=== PATIENT | female | born 1930 | race Caucasian/White ===

== ENCOUNTER 2016-11-13 18:07 | Emergency (ER) | payer MEDICARE ==
[~2016-11-13] VITALS: Ht 172.7 cm; Wt 60.0 kg
[2016-11-13 18:16] VITALS: BP 163/87; PULSE 70; RESP 20; TEMP 98.5; O2SAT 97
[2016-11-13 18:22] VITALS: BP 163/87; PULSE 70; RESP 17; O2SAT 97
[2016-11-13] MEDS: SODIUM CHLORIDE 0.9% FLUSH 10 ML FLUSH IVF PRN ×2 (18:44→18:52)
--- NOTE | 2016-11-13 18:50 | PD ---
HPI Chief Complaint: Altered Mental Status Time Seen by Provider: 18:19 Travel History International Travel<30 days: No Contact w/Intl Traveler<30days: No Traveled to known affect area: No History of Present Illness HPI Send 86 year-old woman who presents to the emergency department from [facility] for altered mental status. He reports she's been or sleepy and lethargic today. She has multiple medical problems including A. fib, warfarin, anxiety, CHF, diabetes, COPD. She is on chronic morphine, as well as trazodone at night that was recently increased. History Past Medical History Narrative Medical COPD A. fib, on warfarin Hypertension anxiety Pacer GERD CHF Diabetes Restless leg syndrome Social History Alcohol Use: No Tobacco Use: No Allergies-Medications (Allergen,Severity, Reaction): Coded Allergies: Codeine (Verified Allergy, Unknown, 11/13/16) Review of Systems Except as stated in HPI: all other systems reviewed are Neg Physical Exam Narrative GENERAL: 86 year-old woman, well-appearing, lethargic. SKIN: Focused skin assessment warm/dry. HEAD: Atraumatic. Normocephalic. CARDIOVASCULAR: Regular rate and rhythm. No murmur appreciated. RESPIRATORY: No accessory muscle use. Clear to auscultation. Breath sounds equal bilaterally. GASTROINTESTINAL: Abdomen soft, non-tender, nondistended. Hepatic and splenic margins not palpable. MUSCULOSKELETAL: No obvious deformities. She has some pain in the left foot from chronic arthritis. Otherwise unremarkable. NEUROLOGICAL: Awake, decreased alertness. No obvious cranial nerve deficits. Motor grossly within normal limits. Normal speech. PSYCHIATRIC: Appropriate mood and affect; insight and judgment normal. Data Data Last Documented VS Vital Signs Date Time Temp Pulse Resp B/P Pulse Ox O2 Delivery O2 Flow Rate FiO2 11/13/16 18:59 98.1 70 18 136/71 97 Room Air Orders Complete Blood Count With Diff (11/13/16 18:19) Comprehensive Metabolic Panel (11/13/16 18:19) Troponin I (11/13/16 18:19) Thyroid Stimulating Hormone (11/13/16 18:19) Urinalysis - C+S If Indicated (11/13/16 18:19) Blood Glucose (11/13/16 18:19) Ecg Monitoring (11/13/16 18:19) Iv Access Insert/Monitor (11/13/16 18:19) Cath For Specimen (11/13/16 18:19) Oximetry (11/13/16 18:19) Sodium Chloride 0.9% Flush (Ns Flush) (11/13/16 18:30) Labs Laboratory Tests Test 11/13/16 18:30 White Blood Count 9.3 TH/MM3 Red Blood Count 4.34 MIL/MM3 Hemoglobin 12.3 GM/DL Hematocrit 36.6 % Mean Corpuscular Volume 84.3 FL Mean Corpuscular Hemoglobin 28.4 PG Mean Corpuscular Hemoglobin 33.6 % Concent Red Cell Distribution Width 15.2 % Platelet Count 124 TH/MM3 Mean Platelet Volume 7.8 FL Neutrophils (%) (Auto) 60.6 % Lymphocytes (%) (Auto) 27.4 % Monocytes (%) (Auto) 10.3 % Eosinophils (%) (Auto) 0.9 % Basophils (%) (Auto) 0.8 % Neutrophils # (Auto) 5.6 TH/MM3 Lymphocytes # (Auto) 2.5 TH/MM3 Monocytes # (Auto) 1.0 TH/MM3 Eosinophils # (Auto) 0.1 TH/MM3 Basophils # (Auto) 0.1 TH/MM3 CBC Comment DIFF FINAL Differential Comment MDM Medical Decision Making Medical Screen Exam Complete: Yes Emergency Medical Condition: Yes Differential Diagnosis Infection, electronic necrotic, adverse medication effect, other Narrative Course Medical decision making 86-year-old presents emergent department altered mental status. Wide differential diagnosis including infection, adverse medication effect, electrolyte abnormality. Most notably, it appears that her trazodone dose was doubled starting last night. I think this is most likely explanation for her symptoms. No evidence of trauma. No history of falls. We'll check labs, UA, otherwise recommend holding trazodone and outpatient follow-up. Patient will be signed out to the oncoming provider at 7pm. Axel Godinez MD November 13, 2016 18:50
[2016-11-13 18:58] LABS: AUTOMATED NEUTROPHIL # 5.6 TH/MM3 (1.8-7.7); BASOPHIL # 0.1 TH/MM3 (0-0.2); BASOPHIL % 0.8 % (0.0-2.0); EOSINOPHIL # 0.1 TH/MM3 (0-0.4); EOSINOPHIL % 0.9 % (0.0-4.0); HEMATOCRIT 36.6 % (35.0-46.0); LYMPH % 27.4 % (9.0-44.0); LYMPHOCYTE # 2.5 TH/MM3 (1.0-4.8); MEAN CELL VOLUME 84.3 FL (80.0-100.0); MEAN CORPUSCULAR HEMOGLOBIN 28.4 PG (27.0-34.0); MEAN CORPUSCULAR HGB CONC 33.6 % (32.0-36.0); MONO % 10.3 % (0.0-8.0); NEUT % 60.6 % (16.0-70.0); PLATELET COUNT 124 TH/MM3 (150-450); RED BLOOD COUNT 4.34 MIL/MM3 (4.00-5.30); RED CELL DISTRIBUTION WIDTH 15.2 % (11.6-17.2); WHITE BLOOD COUNT 9.3 TH/MM3 (4.0-11.0)
[2016-11-13 18:59] VITALS: BP 136/71; PULSE 70; RESP 18; TEMP 98.1; O2SAT 97
[2016-11-13 18:59] LABS: HEMO FLAGS DIFF FINAL
[2016-11-13 19:06] LABS: ALT (GPT) 14 U/L (10-53); ANION GAP 9 MEQ/L (5-15); AST (GOT) 17 U/L (15-37); BICARBONATE 28.8 MEQ/L (21.0-32.0); BLOOD UREA NITROGEN 18 MG/DL (7-18); CHLORIDE 104 MEQ/L (98-107); GLOMERULAR FILTRATION RATE 47 ML/MIN (>89); SODIUM (NA) 142 MEQ/L (136-145)
[2016-11-13 19:16] LABS: ALKALINE PHOSPHATASE 61 U/L (45-117); TOTAL BILIRUBIN ADULT 0.5 MG/DL (0.2-1.0)
[2016-11-13 19:34] LABS: BLOOD, URINE TRACE (NEG); GLUCOSE,URINE NEG (NEG); KETONE, URINE NEG (NEG); MUCUS URINE FEW /lpf (OCC); NITRITE,URINE NEG (NEG); PH, URINE 5.5 (5.0-8.5); URINE COLOR YELLOW (YELLW/STRAW)
[2016-11-13 19:36] LABS: COMMENT (UR) CATH-CULT NOT IND; CULTURE IF INDICATED CATH CULTURE NOT IND
--- NOTE | 2016-11-13 19:47 | PD ---
Physical Exam Narrative The patient was initially evaluated by the previous provider and signed out to me at the beginning of my shift pending labs and disposition. See his note for further details. Briefly this is an 86-year-old female who [facility] of altered mental status. According to the reports the patient has been more sleepy and lethargic today. She is on morphine for chronic pain as well as trazodone which was recently increased yesterday. Here the patient has no physical complaints. On my exam she is awake and alert and tells me that she feels like she needs to urinate. No abdominal pain. No chest pain. Exam is essentially unremarkable. Vital signs show heart rate 70, blood pressure 163/87, pulse ox 97% on room air , oral temp of 98.5F. CBC shows to be BC 9.3, hemoglobin 12.3, hematocrit 36.6, platelets 124. CMP is essentially unremarkable. TSH is 0.089. UA is not suggestive of UTI. Previous provider discussed case with the patient's son via telephone with plan to discharge patient back to [facility]iary if labs are unremarkable. He is amenable to this plan. Patient is stable for discharge home back to [facility]. We have advised that trazodone be discontinued until she follows with her primary care physician. Data Data Last Documented VS Vital Signs Date Time Temp Pulse Resp B/P Pulse Ox O2 Delivery O2 Flow Rate FiO2 11/13/16 18:59 98.1 70 18 136/71 97 Room Air Orders Complete Blood Count With Diff (11/13/16 18:19) Comprehensive Metabolic Panel (11/13/16 18:19) Troponin I (11/13/16 18:19) Thyroid Stimulating Hormone (11/13/16 18:19) Urinalysis - C+S If Indicated (11/13/16 18:19) Blood Glucose (11/13/16 18:19) Ecg Monitoring (11/13/16 18:19) Iv Access Insert/Monitor (11/13/16 18:19) Cath For Specimen (11/13/16 18:19) Oximetry (11/13/16 18:19) Sodium Chloride 0.9% Flush (Ns Flush) (11/13/16 18:30) Labs Laboratory Tests Test 11/13/16 11/13/16 18:30 18:45 White Blood Count 9.3 TH/MM3 Red Blood Count 4.34 MIL/MM3 Hemoglobin 12.3 GM/DL Hematocrit 36.6 % Mean Corpuscular Volume 84.3 FL Mean Corpuscular Hemoglobin 28.4 PG Mean Corpuscular Hemoglobin 33.6 % Concent Red Cell Distribution Width 15.2 % Platelet Count 124 TH/MM3 Mean Platelet Volume 7.8 FL Neutrophils (%) (Auto) 60.6 % Lymphocytes (%) (Auto) 27.4 % Monocytes (%) (Auto) 10.3 % Eosinophils (%) (Auto) 0.9 % Basophils (%) (Auto) 0.8 % Neutrophils # (Auto) 5.6 TH/MM3 Lymphocytes # (Auto) 2.5 TH/MM3 Monocytes # (Auto) 1.0 TH/MM3 Eosinophils # (Auto) 0.1 TH/MM3 Basophils # (Auto) 0.1 TH/MM3 CBC Comment DIFF FINAL Differential Comment Sodium Level 142 MEQ/L Potassium Level 4.0 MEQ/L Chloride Level 104 MEQ/L Carbon Dioxide Level 28.8 MEQ/L Anion Gap 9 MEQ/L Blood Urea Nitrogen 18 MG/DL Creatinine 1.09 MG/DL Estimat Glomerular Filtration 47 ML/MIN Rate Random Glucose 101 MG/DL Calcium Level 8.5 MG/DL Total Bilirubin 0.5 MG/DL Aspartate Amino Transf 17 U/L (AST/SGOT) Alanine Aminotransferase 14 U/L (ALT/SGPT) Alkaline Phosphatase 61 U/L Troponin I 0.02 NG/ML Total Protein 6.7 GM/DL Albumin 3.4 GM/DL Thyroid Stimulating Hormone 0.089 uIU/ML 3rd Gen Urine Color YELLOW Urine Turbidity CLEAR Urine pH 5.5 Urine Specific [place] 1.031 Urine Protein TRACE mg/dL Urine Glucose (UA) NEG mg/dL Urine Ketones NEG mg/dL Urine Occult Blood TRACE Urine Nitrite NEG Urine Bilirubin NEG Urine Urobilinogen 2.0 MG/DL Urine Leukocyte Esterase NEG Urine RBC 2 /hpf Urine WBC 1 /hpf Urine Mucus FEW /lpf Microscopic Urinalysis Comment CATH-CULT NOT IND MDM Supervised Visit with URIEL: No Diagnosis Primary Impression: Mental status alteration Qualified Code: R41.82 - Altered mental status, unspecified altered mental status type Referrals: Primary Care Physician 2 days Additional Instruction: Follow-up with your primary care physician in the next 1-2 days. Discontinue trazodone. Return to the emergency department for worsening symptoms or any other concerns. Disposition: 03 DISCHARGE TO SNF Condition: Stable David Zacarias MD November 13, 2016 19:47
[2016-11-13] MEDS ORDERED: COUM4TAB PO (20:03)
[2016-11-13] MEDS ORDERED: FLUT1INH INH (20:03)
[2016-11-13] MEDS ORDERED: CETI10 PO (20:03)
[2016-11-13] MEDS ORDERED: METO25TA3 PO (20:06)
[2016-11-13] MEDS ORDERED: CETI5TAB2 PO (20:06)
[2016-11-13] MEDS ORDERED: SUCR1TAB PO (20:06)
[2016-11-13] MEDS ORDERED: LEVO125T4 PO (20:06)
[2016-11-13] MEDS ORDERED: MORP1TAB25 PO (20:10)
[2016-11-13] MEDS ORDERED: GABA300C5 PO (20:10)
[2016-11-13] MEDS ORDERED: ROPI0.5T PO (20:10)
[2016-11-13] MEDS ORDERED: MEGE40SU PO (20:10)
[2016-11-13] MEDS ORDERED: DIGO0.12 PO (20:17)
[2016-11-13] MEDS ORDERED: MORP1TAB24 PO (20:17)
[2016-11-13] MEDS ORDERED: FAMO40TA PO (20:17)
[2016-11-13] MEDS ORDERED: MEMA1CAP2 PO (20:17)
[2016-11-13] MEDS ORDERED: OSCA200T PO (20:17)
[2016-11-13] MEDS ORDERED: ALPR.5 PO (20:17)
[2016-11-13] MEDS ORDERED: GUAI1TAB PO (20:17)
[2016-11-13] MEDS ORDERED: QUES4POW PO (20:20)
[2016-11-13] MEDS ORDERED: TRAZ50TA12 PO (20:20)
[2016-11-13] MEDS ORDERED: ALPR0.5T3 PO (20:20)
== END 2016-11-13 22:10 ==
LOC: NEPE 18:07
DX: R41.82 Altered mental status, unspecified (principal); R53.83 Other fatigue; E11.9 Type 2 diabetes mellitus without complications; I48.91 Unspecified atrial fibrillation; I10 Essential (primary) hypertension; G25.81 Restless legs syndrome; Z79.01 Long term (current) use of anticoagulants; Z95.0 Presence of cardiac pacemaker; Z87.09 Personal history of other diseases of the respiratory system; Z86.59 Personal history of other mental and behavioral disorders; Z87.19 Personal history of other diseases of the digestive system; Z86.79 Personal history of other diseases of the circulatory system
CPT/HCPCS: 51703; 80053; 81001; 84443; 84484; 85025

== ENCOUNTER 2017-01-18 17:47 | Emergency (ER) | payer MEDICARE ==
[~2017-01-18] VITALS: Ht 172.7 cm; Wt 55.0 kg
[~2017-01-18 17:47] MED LIST: ALPR.5 PO; ALPR0.5T3 PO; CETI5TAB2 PO; COUM4TAB PO; DIGO0.12 PO; FAMO40TA PO; FLUT1INH INH; GABA300C5 PO; GUAI1TAB PO; LEVO125T4 PO; MEGE40SU PO; MEMA1CAP2 PO; METO25TA3 PO; MORP1TAB24 PO; OSCA200T PO; QUES4POW PO; ROPI0.5T PO; SUCR1TAB PO; TRAZ50TA12 PO
[2017-01-18 17:50] VITALS: BP 172/83; PULSE 74; RESP 20; TEMP 98.2; O2SAT 94
--- NOTE | 2017-01-18 18:00 | PD ---
Physical Exam Time Seen by Provider: 17:58 Narrative 86yo F generalized body itching x5 days and left eye itchiness, swelling. Per son, symptoms have been going on for about a month. Denies fever, vomiting. Patient seen in triage. VS reviewed. Awaiting bed placement. Data Data Last Documented VS Vital Signs Date Time Temp Pulse Resp B/P Pulse Ox O2 Delivery O2 Flow Rate FiO2 01/18/17 17:50 98.2 74 20 172/83 94 Room Air MDM Supervised Visit with URIEL: Jocelin Arroyo Jan 18, 2017 18:00
[2017-01-18] MEDS ORDERED: OS-CTAB3 PO (19:54)
[2017-01-18] MEDS ORDERED: HYDR-3133 PO (19:54)
[2017-01-18] MEDS ORDERED: CETI5CHW CHEW (19:54)
[2017-01-18] MEDS ORDERED: CETACRE5 TOPICAL (19:54)
[2017-01-18] MEDS ORDERED: HYDRO.5%T TOPICAL (19:54)
--- NOTE | 2017-01-18 19:55 | PD ---
HPI Chief Complaint: Skin Problem Time Seen by Provider: 19:48 Travel History International Travel<30 days: No Contact w/Intl Traveler<30days: No Traveled to known affect area: No History of Present Illness HPI 86-year-old female came to the emergency room brought by her son with history of intense itching all over her body. As per the son this has been going on for past 3 weeks. Patient says she is very frustrated with her condition since she is unable to sleep at night due to the intense itching. Patient has been given Zyrtec, hydroxyzine and hydrocortisone cream at the assisted living but none of these are working. Patient says that "you won't be able to see anything on my skin"but it itches everywhere. Vital signs were stable. She is awake and answering questions appropriately. [facility] Past Medical History Narrative Medical List of her past medical, surgical, social and family history is reviewed from the nursing note. Hx Anticoagulant Therapy: Yes Atrial Fibrillation: Yes Cardiovascular Problems: Yes COPD: Yes Diabetes: Yes Diminished Hearing: Yes Gastrointestinal Disorders: Yes (IBS) Respiratory: Yes (emphysema) Pneumonia: Yes ?: Not Social History Alcohol Use: No Tobacco Use: No (quit 17 yrs ago) Substance Use: No Allergies-Medications (Allergen,Severity, Reaction): Coded Allergies: Codeine (Verified Allergy, Unknown, 11/13/16) Comments List of her allergies reviewed from the nursing note. Reported Meds & Prescriptions Reported Meds & Active Scripts Active Permethrin Topical 5% (Permethrin) 5% Cream 1 Applic TOPICAL ONCE Reported [place] Calcium + D3 (Calcium Carbonate-Cholecalciferol) 500-200 Mg-Unit Tab 1 Tab PO DAILY Cetaphil (Emollient) 1 Cre Cre 1 Applic TOPICAL BID Cetirizine (Cetirizine HCl) 5 Mg Chew 10 Mg CHEW DAILY Hydroxyzine HCl 25 Mg Tab 25 Mg PO TID PRN Hydrocortisone Topical (Hydrocortisone) 0.5% Cream 1 Applic TOPICAL BID Apply to affected area(s) Alprazolam 0.5 Mg Tab 0.5 Mg PO Q12HR PRN Questran (Cholestyramine) 4 Gm/Pkt Powd 4 Gm PO DAILY PRN 1 packet contains 4gm of cholestyramine. Famotidine 40 Mg Tab 40 Mg PO BID Xanax (Alprazolam) 0.5 Mg Tab 0.5 Mg PO DAILY Namzaric (Memantine-Donepezil) 28-10 Mg Cap 1 Cap PO DAILY @ 1700 Digoxin 0.125 Mg Tab 0.125 Mg PO DAILY @ 1200 Eql Mucus-ER 12 Hour (Guaifenesin) 600 Mg Tab 600 Mg PO Q12HR Gabapentin 300 Mg Cap 300 Mg PO BID Ropinirole 0.5 Mg Tab 0.5 Mg PO BID Megestrol Liq (Megestrol Acetate) 40 Mg/Ml Susp 200 Mg PO BID Sucralfate 1 Gm Tab 1 Gm PO TIDPC & AT BEDTIME on empty stomach Metoprolol Tartrate 25 Mg Tab 25 Mg PO DAILY Levothyroxine (Levothyroxine Sodium) 125 Mcg Tab 125 Mcg PO DAILY Coumadin (Warfarin) 4 Mg Tab 4 Mg PO DAILY @ 1700 Breo Ellipta Inh (Fluticasone/Vilanterol) 100-25 Mcg/Act Inh 1 Puff INH DAILY Use daily at the same time. Narrative Medication List of her home medications reviewed from the nursing note. Review of Systems Except as stated in HPI: all other systems reviewed are Neg Physical Exam Narrative GENERAL: Awake, alert, anxious, elderly, frail SKIN: Focused skin assessment warm/dry. Pinpoint erythematous macular lesions HEAD: Atraumatic. Normocephalic. EYES: Pupils equal and round. No scleral icterus. No injection or drainage. ENT: No nasal bleeding or discharge. Mucous membranes pink and moist. NECK: Trachea midline. No JVD. CARDIOVASCULAR: Regular rate and rhythm. No murmur appreciated. RESPIRATORY: No accessory muscle use. Clear to auscultation. Breath sounds equal bilaterally. GASTROINTESTINAL: Abdomen soft, non-tender, nondistended. Hepatic and splenic margins not palpable. MUSCULOSKELETAL: No obvious deformities. No clubbing. No cyanosis. No edema. NEUROLOGICAL: Awake and alert. No obvious cranial nerve deficits. Motor grossly within normal limits. Normal speech. PSYCHIATRIC: Appropriate mood and affect; insight and judgment normal. Data Data Last Documented VS Vital Signs Date Time Temp Pulse Resp B/P Pulse Ox O2 Delivery O2 Flow Rate FiO2 01/18/17 20:49 140/67 144/70 01/18/17 20:29 18 98 Room Air 01/18/17 17:50 98.2 74 Orders Electrocardiogram (01/18/17 20:13) Basic Metabolic Panel (Bmp) (01/18/17 20:13) Complete Blood Count With Diff (01/18/17 20:13) Digoxin (01/18/17 20:13) Magnesium (Mg) (01/18/17 20:13) Prothrombin Time / Inr (Pt) (01/18/17 20:13) Ecg Monitoring (01/18/17 20:13) Bilateral Bp Monitoring (01/18/17 20:13) Iv Access Insert/Monitor (01/18/17 20:13) Oximetry (01/18/17 20:13) Oxygen Administration (01/18/17 20:13) Sodium Chloride 0.9% Flush (Ns Flush) (01/18/17 20:15) Thyroid Stimulating Hormone (01/18/17 20:13) Labs Laboratory Tests Test 01/18/17 20:25 White Blood Count 11.7 TH/MM3 Red Blood Count 4.73 MIL/MM3 Hemoglobin 13.2 GM/DL Hematocrit 40.6 % Mean Corpuscular Volume 85.8 FL Mean Corpuscular Hemoglobin 27.8 PG Mean Corpuscular Hemoglobin 32.4 % Concent Red Cell Distribution Width 15.2 % Platelet Count 309 TH/MM3 Mean Platelet Volume 7.1 FL Neutrophils (%) (Auto) 65.4 % Lymphocytes (%) (Auto) 22.0 % Monocytes (%) (Auto) 9.0 % Eosinophils (%) (Auto) 2.8 % Basophils (%) (Auto) 0.8 % Neutrophils # (Auto) 7.7 TH/MM3 Lymphocytes # (Auto) 2.6 TH/MM3 Monocytes # (Auto) 1.1 TH/MM3 Eosinophils # (Auto) 0.3 TH/MM3 Basophils # (Auto) 0.1 TH/MM3 CBC Comment DIFF FINAL Differential Comment Prothrombin Time 16.5 SEC Prothromb Time International 1.5 RATIO Ratio Sodium Level 144 MEQ/L Potassium Level 4.3 MEQ/L Chloride Level 113 MEQ/L Carbon Dioxide Level 23.2 MEQ/L Anion Gap 8 MEQ/L Blood Urea Nitrogen 15 MG/DL Creatinine 0.91 MG/DL Estimat Glomerular Filtration 58 ML/MIN Rate Random Glucose 78 MG/DL Calcium Level 8.9 MG/DL Magnesium Level 1.6 MG/DL Thyroid Stimulating Hormone 1.150 uIU/ML 3rd Gen Digoxin Level 0.8 NG/ML MDM Medical Decision Making Medical Screen Exam Complete: Yes Emergency Medical Condition: Yes Medical Record Reviewed: Yes Interpretation(s) Twelve-lead EKG was reviewed by me. Paced rhythm. Heart rate of 70 bpm. Differential Diagnosis Scabies, anxiety Narrative Course 9:43 PM blood test results of back and within acceptable limits. I will discharge her home with a prescription for permethrin lotion. Procedures EKG Prior to Arrival: No Diagnosis Primary Impression: Generalized pruritus Additional Impression: Scabies Referrals: Primary Care Physician Additional Instructions: Apply the lotion as per the instruction. Make sure that you take the shower and shampoo the next day. All the linen and clothing has to be washed with hot water. Follow-up with your primary care in couple days. Return the ER if the condition worsens or any other new concerns. Med/Other Pt SpecificInfo: Prescription(s) given Scripts Permethrin Topical 5% 5% Cream1 Applic TOPICAL ONCE #1 TUBE Ref 0 Prov:Elroy Regalado MD 01/18/17 Disposition: 01 DISCHARGE HOME Condition: Stable Elroy Regalado MD Jan 18, 2017 19:55 Elroy Regalado MD Jan 18, 2017 19:55
[2017-01-18] MEDS ORDERED: SODIUM CHLORIDE 0.9% FLUSH 10 ML FLUSH IVF PRN (20:15)
[2017-01-18 20:29] VITALS: RESP 18; O2SAT 98
[2017-01-18 20:47] LABS: AUTOMATED NEUTROPHIL # 7.7 TH/MM3 (1.8-7.7); BASOPHIL # 0.1 TH/MM3 (0-0.2); BASOPHIL % 0.8 % (0.0-2.0); EOSINOPHIL # 0.3 TH/MM3 (0-0.4); EOSINOPHIL % 2.8 % (0.0-4.0); HEMATOCRIT 40.6 % (35.0-46.0); HEMO FLAGS DIFF FINAL; LYMPHOCYTE # 2.6 TH/MM3 (1.0-4.8); MEAN CELL VOLUME 85.8 FL (80.0-100.0); MEAN CORPUSCULAR HEMOGLOBIN 27.8 PG (27.0-34.0); MEAN CORPUSCULAR HGB CONC 32.4 % (32.0-36.0); NEUT % 65.4 % (16.0-70.0); PLATELET COUNT 309 TH/MM3 (150-450); RED BLOOD COUNT 4.73 MIL/MM3 (4.00-5.30); RED CELL DISTRIBUTION WIDTH 15.2 % (11.6-17.2); WHITE BLOOD COUNT 11.7 TH/MM3 (4.0-11.0)
[2017-01-18 20:49] VITALS: BP_SYST 140; BP_SYST 144; BP_DIAS 67; BP_DIAS 70
[2017-01-18 20:58] LABS: INTERNATIONAL NORMALIZED RATIO 1.5 RATIO; PROTHROMBIN TIME - PATIENT 16.5 SEC (9.8-11.6)
[2017-01-18 21:25] LABS: DIGOXIN 0.8 NG/ML (0.8-2.0)
[2017-01-18 21:40] LABS: BICARBONATE 23.2 MEQ/L (21.0-32.0); MAGNESIUM 1.6 MG/DL (1.5-2.5); POTASSIUM 4.3 MEQ/L (3.5-5.1)
[2017-01-18] MEDS ORDERED: PERM5CRE TOPICAL (21:46)
--- NOTE | 2017-01-19 16:21 | EKG ---
Date Performed: 01/18/2017 Time Performed: 20:32:03 PTAGE: 86 years EKG: ELECTRONIC VENTRICULAR PACEMAKER ABNORMAL RHYTHM ECG NO PREVIOUS TRACING DOCTOR: Stuart Haas Interpretating Date/Time 01/19/2017 16:21:03
== END 2017-01-18 22:31 | disposition home or self-care (01) ==
LOC: NEPD 17:47
DX: L29.9 Pruritus, unspecified (principal); B86 Scabies; K58.9 Irritable bowel syndrome, unspecified; I48.91 Unspecified atrial fibrillation; J44.9 Chronic obstructive pulmonary disease, unspecified; E11.9 Type 2 diabetes mellitus without complications; R94.31 Abnormal electrocardiogram [ECG] [EKG]; Z79.899 Other long term (current) drug therapy; Z79.01 Long term (current) use of anticoagulants
CPT/HCPCS: 80048; 80162; 83735; 84443; 85025; 85610; 93005

== ENCOUNTER 2017-09-22 03:19 | Observation (INO) | payer MEDICARE ==
[~2017-09-22] VITALS: Ht 177.8 cm; Wt 64.2 kg
[~2017-09-22 03:19] MED LIST changes: +CETACRE5 TOPICAL; +CETI5CHW CHEW; -CETI5TAB2 PO; +HYDR-3133 PO; +HYDRO.5%T TOPICAL; -MORP1TAB24 PO; +OS-CTAB3 PO; -OSCA200T PO; +PERM5CRE TOPICAL; -TRAZ50TA12 PO
[2017-09-22 03:23] VITALS: BP 153/85; PULSE 125; RESP 18; TEMP 97.4; O2SAT 92
--- NOTE | 2017-09-22 04:00 | PD ---
HPI Chief Complaint: Fall Time Seen by Provider: 03:34 Travel History International Travel<30 days: No Contact w/Intl Traveler<30days: No Traveled to known affect area: No History of Present Illness HPI 87yo F with PMH of afib on coumadin presents to the ED from [facility] with left hip pain after a fall today. Pt was trying to sit on the toilet and had hand hand on the hand and she slip and fell onto her left side. Denies any head trauma or LOC. Denies any chest pain, sob, n/v, abdominal pain, focal weakness or numbness. Son said the toilet seat broke. PFSH Past Medical History Hx Anticoagulant Therapy: Yes (COUMADIN ) Atrial Fibrillation: Yes Depression: Yes Cardiovascular Problems: Yes COPD: Yes Diabetes: No Patient Takes Glucophage: No Diminished Hearing: Yes Gastrointestinal Disorders: Yes (IBS) Hypertension: Yes Respiratory: Yes (emphysema) Immunizations Current: Yes Pneumonia: Yes Thyroid Disease: Yes Tetanus Vaccination: > 5 Years Influenza Vaccination: Yes ?: Not Menopausal: Yes Past Surgical History Surgical History: No Previous Surgery Social History Alcohol Use: No Tobacco Use: No (quit 17 yrs ago) Substance Use: No Allergies-Medications (Allergen,Severity, Reaction): Coded Allergies: codeine (Unverified Allergy, Unknown, 09/22/17) Reported Meds & Prescriptions Reported Meds & Active Scripts Active Reported Loperamide (Loperamide HCl) 2 Mg Cap 2 Mg PO DIRECTED PRN One capsule after each loose stool. Not to exceed 8 capsules per day. Flexeril (Cyclobenzaprine HCl) 5 Mg Tab 5 Mg PO TID Gabapentin 100 Mg Cap 100 Mg PO BID Mirtazapine 7.5 Mg Tab 7.5 Mg PO HS Escitalopram (Escitalopram Oxalate) 10 Mg Tab 10 Mg PO DAILY Breo Ellipta Inh (Fluticasone/Vilanterol) 100-25 Mcg/Act Inh 1 Puff INH DAILY Use daily at the same time. Tramadol (Tramadol HCl) 50 Mg Tab 50 Mg PO HS PRN [place] Calcium + D3 (Calcium Carbonate-Cholecalciferol) 500-200 Mg-Unit Tab 1 Tab PO DAILY Hydroxyzine HCl 25 Mg Tab 25 Mg PO TID PRN Alprazolam 0.5 Mg Tab 0.5 Mg PO Q12HR PRN Questran (Cholestyramine) 4 Gm/Pkt Powd 4 Gm PO DAILY PRN 1 packet contains 4gm of cholestyramine. Famotidine 40 Mg Tab 20 Mg PO BID Xanax (Alprazolam) 0.5 Mg Tab 0.5 Mg PO DAILY Namzaric (Memantine-Donepezil) 28-10 Mg Cap 1 Cap PO DAILY @ 1700 Digoxin 0.125 Mg Tab 0.125 Mg PO DAILY @ 1200 Gabapentin 300 Mg Cap 300 Mg PO HS Ropinirole 0.5 Mg Tab 0.5 Mg PO BID Levothyroxine (Levothyroxine Sodium) 125 Mcg Tab 88 Mcg PO DAILY Coumadin (Warfarin) 4 Mg Tab 6 Mg PO DAILY @ 1700 Breo Ellipta Inh (Fluticasone/Vilanterol) 100-25 Mcg/Act Inh 1 Puff INH DAILY Use daily at the same time. Review of Systems Except as stated in HPI: all other systems reviewed are Neg Physical Exam Narrative GENERAL: 87yo F in mild distress. SKIN: Focused skin assessment warm/dry. HEAD: Atraumatic. Normocephalic. EYES: Pupils equal and round. No scleral icterus. No injection or drainage. ENT: No nasal bleeding or discharge. Mucous membranes pink and moist. NECK: Trachea midline. No JVD. CARDIOVASCULAR: Regular rate and rhythm. No murmur appreciated. RESPIRATORY: No accessory muscle use. Clear to auscultation. Breath sounds equal bilaterally. GASTROINTESTINAL: Abdomen soft, non-tender, nondistended. MUSCULOSKELETAL: Left hip: +TTP left hip. Sensation intact. Distal pulses intact. NEUROLOGICAL: Awake and alert. No obvious cranial nerve deficits. Motor grossly within normal limits. Normal speech. PSYCHIATRIC: Appropriate mood and affect; insight and judgment normal. Data Data Last Documented VS Vital Signs Date Time Temp Pulse Resp B/P (MAP) Pulse Ox O2 Delivery O2 Flow Rate FiO2 09/22/17 06:03 86 16 145/72 (96) 94 Nasal Cannula 2.00 09/22/17 03:23 97.4 Orders Orders Complete Blood Count With Diff (09/22/17 03:46) Basic Metabolic Panel (Bmp) (09/22/17 03:46) Prothrombin Time / Inr (Pt) (09/22/17 03:46) Act Partial Throm Time (Ptt) (09/22/17 03:46) Hip, Uni(Ap&Lat) W Ap Pelvis (09/22/17 ) Type And Screen (09/22/17 03:46) Electrocardiogram (09/22/17 ) Ct Hip W/O Contrast (09/22/17 ) Admit To Inpatient (09/22/17 ) Vital Signs (Adult) Q4H (09/22/17 05:37) Activity Bed Rest (09/22/17 05:37) Intake + Output DEB.QSHIFT (09/22/17 05:37) Diet Npo (09/22/17 Breakfast) Sodium Chlor 0.9% 1000 Ml Inj (Ns 1000 M (09/22/17 05:37) Sodium Chloride 0.9% Flush (Ns Flush) (09/22/17 05:45) Sodium Chloride 0.9% Flush (Ns Flush) (09/22/17 09:00) Ondansetron Inj (Zofran Inj) (09/22/17 05:45) Comprehensive Metabolic Panel (09/23/17 06:00) Complete Blood Count With Diff (09/23/17 06:00) Prothrombin Time / Inr (Pt) (09/23/17 06:00) Case Management Consult (09/22/17 05:37) Acetaminophen (Tylenol) (09/22/17 05:45) Morphine Inj (Morphine Inj) (09/22/17 05:45) Docusate Sodium-Senna (Sofie-Colace) (09/22/17 09:00) Magnesium Hydroxide Liq (Milk Of Magnesi (09/22/17 05:45) Sennosides (Senokot) (09/22/17 05:45) Bisacodyl Supp (Dulcolax Supp) (09/22/17 05:45) Lactulose Liq (Lactulose Liq) (09/22/17 05:45) Inpatient Certification (09/22/17 ) Consult Orthopedic (09/22/17 ) Admit Order (Ed Use Only) (09/22/17 06:08) Labs Laboratory Tests Test 09/22/17 04:00 White Blood Count 12.1 TH/MM3 Red Blood Count 4.47 MIL/MM3 Hemoglobin 13.0 GM/DL Hematocrit 38.8 % Mean Corpuscular Volume 86.9 FL Mean Corpuscular Hemoglobin 29.0 PG Mean Corpuscular Hemoglobin Concent 33.4 % Red Cell Distribution Width 14.5 % Platelet Count 319 TH/MM3 Mean Platelet Volume 6.4 FL Neutrophils (%) (Auto) 74.7 % Lymphocytes (%) (Auto) 15.4 % Monocytes (%) (Auto) 6.5 % Eosinophils (%) (Auto) 2.2 % Basophils (%) (Auto) 1.2 % Neutrophils # (Auto) 9.0 TH/MM3 Lymphocytes # (Auto) 1.9 TH/MM3 Monocytes # (Auto) 0.8 TH/MM3 Eosinophils # (Auto) 0.3 TH/MM3 Basophils # (Auto) 0.1 TH/MM3 CBC Comment DIFF FINAL Differential Comment Prothrombin Time 22.0 SEC Prothromb Time International Ratio 2.2 RATIO Activated Partial Thromboplast Time 32.8 SEC Blood Urea Nitrogen 16 MG/DL Creatinine 1.02 MG/DL Random Glucose 96 MG/DL Calcium Level 8.4 MG/DL Sodium Level 141 MEQ/L Potassium Level 4.0 MEQ/L Chloride Level 107 MEQ/L Carbon Dioxide Level 24.2 MEQ/L Anion Gap 10 MEQ/L Estimat Glomerular Filtration Rate 51 ML/MIN MDM Medical Decision Making Medical Screen Exam Complete: Yes Emergency Medical Condition: Yes Differential Diagnosis Fracture vs. contusion Narrative Course 87yo F from assisted living here with left hip pain s/p fall today. Labs reviewed, WBC 12.1. BMP unremarkable. INR therapeutic at 2.2. Xray left hip showed possible nondisplaced fracture of left femoral neck. CT recommended. CT left hip showed no fracture. Mild subcutaneous contusion laterally of left hip without organized hematoma. Chronic findings. Pt is still unable to ambulate with walker which is her baseline so will admit for PT. Discussed with Dr. Davila and accepted to her service. Diagnosis Primary Impression: Fall Qualified Codes: W19.XXXA - Unspecified fall, initial encounter Admitting Information Admitting Physician Requests: Garima Lim DO Sep 22, 2017 03:59
[2017-09-22 04:19] LABS: BASOPHIL # 0.1 TH/MM3 (0-0.2); BASOPHIL % 1.2 % (0.0-2.0); EOSINOPHIL # 0.3 TH/MM3 (0-0.4); EOSINOPHIL % 2.2 % (0.0-4.0); HEMATOCRIT 38.8 % (35.0-46.0); LYMPH % 15.4 % (9.0-44.0); LYMPHOCYTE # 1.9 TH/MM3 (1.0-4.8); MEAN CELL VOLUME 86.9 FL (80.0-100.0); MEAN CORPUSCULAR HGB CONC 33.4 % (32.0-36.0); MEAN PLATELET VOLUME 6.4 FL (7.0-11.0); MONO % 6.5 % (0.0-8.0); MONOCYTE # 0.8 TH/MM3 (0-0.9); NEUT % 74.7 % (16.0-70.0); PLATELET COUNT 319 TH/MM3 (150-450); RED BLOOD COUNT 4.47 MIL/MM3 (4.00-5.30); RED CELL DISTRIBUTION WIDTH 14.5 % (11.6-17.2); WHITE BLOOD COUNT 12.1 TH/MM3 (4.0-11.0)
[2017-09-22 04:29] LABS: INTERNATIONAL NORMALIZED RATIO 2.2 RATIO
[2017-09-22 04:33] LABS: BICARBONATE 24.2 MEQ/L (21.0-32.0); CALCIUM 8.4 MG/DL (8.5-10.1); CREATININE 1.02 MG/DL (0.50-1.00)
--- NOTE | 2017-09-22 04:55 | RADRPT ---
EXAM DATE/TIME: 09/22/2017 03:08 [place] COMPARISON: No previous studies available for comparison. INDICATIONS : Trauma to hip due to fall. MEDICAL HISTORY : A-fib SURGICAL HISTORY : None. ENCOUNTER: Initial ACUITY: 1 day PAIN SCORE: 10/10 LOCATION: Left hip FINDINGS: Questionable slight cortical offset seen laterally of the left femoral neck. No other evidence of fra cture. No subluxation. There is no significant joint space narrowing. CONCLUSION: Possible nondisplaced fracture of the left femoral neck. CT recommended. Niko Velazquez MD on September 22, 2017 at 4:53 Board Certified Radiologist. This report was verified electronically.
[2017-09-22] MEDS ORDERED: SODIUM CHLOR 0.9% 1000 ML INJ 1,000 ML IV SCH (05:37)
[2017-09-22] MEDS ORDERED: ONDANSETRON HCL 4 MG/2 ML VIAL IVP PRN (05:45)
[2017-09-22] MEDS ORDERED: MAGNESIUM HYDROXIDE SUSP 30 ML CUP PO PRN (05:45)
[2017-09-22] MEDS ORDERED: LACTULOSE SYRUP 20 GM/30 ML CUP PO PRN (05:45)
[2017-09-22] MEDS ORDERED: SODIUM CHLORIDE 0.9% FLUSH 10 ML FLUSH IV FLUSH PRN (05:45)
[2017-09-22] MEDS ORDERED: BISACODYL 10 MG SUPP RECTAL PRN (05:45)
[2017-09-22] MEDS ORDERED: SENNOSIDES 8.6 MG TAB PO PRN (05:45)
[2017-09-22] MEDS ORDERED: TRAM50TA PO (05:47)
[2017-09-22] MEDS ORDERED: FLUT1INH INH (05:47)
[2017-09-22] MEDS ORDERED: ESCI10TA PO (05:47)
[2017-09-22] MEDS ORDERED: GABA100C4 PO (05:47)
[2017-09-22] MEDS ORDERED: CYCL5TAB PO (05:47)
[2017-09-22] MEDS ORDERED: LOPE2CAP PO (05:47)
[2017-09-22] MEDS ORDERED: MIRT1TAB PO (05:47)
--- NOTE | 2017-09-22 06:01 | RADRPT ---
EXAM DATE/TIME: 09/22/2017 05:40 [facility] COMPARISON: No previous studies available for comparison. INDICATIONS : Trauma; fall. Intertrochanteric fracture on x-ray. RADIATION DOSE: 19.40 CTDIvol (mGy) MEDICAL HISTORY : Hypertension. Chronic obstructive pulmonary disease. Inflammatory bowel disease. SURGICAL HISTORY : None. ENCOUNTER: Initial ACUITY: 1 day PAIN SCALE: 7/10 LOCATION: Left hip TECHNIQUE: Volumetric scanning of the hip was performed. Using automated exposure control and adjustment of the mA and/or kV according to patient size, radiation dose was kept as low as reasonably achievable to o btain optimal diagnostic quality images. DICOM format image data is available electronically for rev iew and comparison. FINDINGS: No acute fracture or subluxation seen in the pelvis or left hip. There is mild to moderate left hip osteoarthritis. Chronic enthesopathic changes are seen of the grea ter trochanter and the ischial tuberosity. There does appear to be some thickening of the left hamstr ing origin. No evidence of tear. Mild left lateral thigh/buttock subcutaneous/superficial muscular contusion. No organized hematoma. CONCLUSION: No fracture. Mild subcutaneous contusion laterally of the left hip without organized hematoma. Chroni c findings as above. Niko Velazquez MD on September 22, 2017 at 5:56 Board Certified Radiologist. This report was verified electronically.
[2017-09-22] MEDS: MORPHINE SULFATE 2 MG/ML INJ IV PUSH PRN ×3 (06:02→22:41)
[2017-09-22 06:03] VITALS: BP 145/72; PULSE 86; RESP 16; O2SAT 94
[2017-09-22 08:00] VITALS: BP 134/74; PULSE 80; RESP 16; TEMP 97.4; O2SAT 92
--- NOTE | 2017-09-22 08:29 | HHI.HP ---
[facility] Service [facility] Primary Care Physician Unknown Admission Diagnosis Left hip pain Diagnoses: (1) Left hip pain Diagnosis: Principal Chief Complaint: pain to the left hip Travel History International Travel<30 Days: No Contact w/Intl Traveler <30 Da: No Traveled to Known Affected Are: No History of Present Illness patient is a a pleasant 87 y/o female with history of osteoarthritis,atrial fibrillation and hypothyroidism who was brought to ER after she fell. she says that she went to bathroom last night when she fell. she denies any prodromal symptoms before the fall and there's no report of syncope. she started to have left hip pain after the fall. she says that she couldn't put the pressure back on the left foot. otherwise she denies any other symptoms including chest pain, abdominal pain, nausea or dizziness. Review of Systems Constitutional: DENIES: Fever, Weight loss, Chills, Night Sweats Eyes: DENIES: Blurred vision, Diplopia, Vision loss, Double Vision Ears, nose, mouth, throat: DENIES: Tinnitus, Vertigo, Throat pain, Epistaxis Respiratory: DENIES: Apneas, Cough, Snoring, Wheezing, Hemoptysis, Sputum production, Shortness of breath Cardiovascular: DENIES: Chest pain, Palpitations, Syncope, Dyspnea on Exertion , PND, Lower Extremity Edema, Orthopnea, Claudication Gastrointestinal: DENIES: Abdominal pain, Black stools, Bloody stools, Constipation, Diarrhea, Nausea, Vomiting, Difficulty Swallowing, Anorexia Genitourinary: DENIES: Urinary frequency, Urgency, Hematuria, Dysuria Musculoskeletal: COMPLAINS OF: Joint pain (left hip.), DENIES: Muscle aches, Stiffness, Joint Swelling Integumentary: DENIES: Rash Neurologic: DENIES: Abnormal gait, Headache, Localized weakness, Paresthesias, Seizures, Speech Problems, Tremor, Poor Balance Psychiatric: DENIES: Anxiety, Confusion, Mood changes, Depression, Hallucinations, Agitation, Suicidal Ideation, Homicidal Ideation, Delusions Past Family Social History Past Medical History atrial fibrillation/ osteoarthritis/hypothyroidism. Past Surgical History cholecystectomy/ hysterectomy. Reported Medications Loperamide (Loperamide HCl) 2 Mg Cap 2 Mg PO DIRECTED PRN One capsule after each loose stool. Not to exceed 8 capsules per day. Flexeril (Cyclobenzaprine HCl) 5 Mg Tab 5 Mg PO TID Gabapentin 100 Mg Cap 100 Mg PO BID Mirtazapine 7.5 Mg Tab 7.5 Mg PO HS Escitalopram (Escitalopram Oxalate) 10 Mg Tab 10 Mg PO DAILY Breo Ellipta Inh (Fluticasone/Vilanterol) 100-25 Mcg/Act Inh 1 Puff INH DAILY Use daily at the same time. Tramadol (Tramadol HCl) 50 Mg Tab 50 Mg PO HS PRN [place]-Edi Calcium + D3 (Calcium Carbonate-Cholecalciferol) 500-200 Mg-Unit Tab 1 Tab PO DAILY Hydroxyzine HCl 25 Mg Tab 25 Mg PO TID PRN Alprazolam 0.5 Mg Tab 0.5 Mg PO Q12HR PRN Questran (Cholestyramine) 4 Gm/Pkt Powd 4 Gm PO DAILY PRN 1 packet contains 4gm of cholestyramine. Famotidine 40 Mg Tab 20 Mg PO BID Xanax (Alprazolam) 0.5 Mg Tab 0.5 Mg PO DAILY Namzaric (Memantine-Donepezil) 28-10 Mg Cap 1 Cap PO DAILY @ 1700 Digoxin 0.125 Mg Tab 0.125 Mg PO DAILY @ 1200 Gabapentin 300 Mg Cap 300 Mg PO HS Ropinirole 0.5 Mg Tab 0.5 Mg PO BID Levothyroxine (Levothyroxine Sodium) 125 Mcg Tab 88 Mcg PO DAILY Coumadin (Warfarin) 4 Mg Tab 6 Mg PO DAILY @ 1700 Breo Ellipta Inh (Fluticasone/Vilanterol) 100-25 Mcg/Act Inh 1 Puff INH DAILY Use daily at the same time. Allergies: Coded Allergies: codeine (Unverified Allergy, Unknown, 09/22/17) Active Ordered Medications Inpatient Medications Acetaminophen (Tylenol) 650 mg Q6H PRN PO FEVER/PAIN SCALE 1 TO 2; Start at 05:45 Bisacodyl (Dulcolax Supp) 10 mg DAILY PRN RECTAL SEVERE CONSITIPATION; Start at 05:45 Lactulose (Lactulose Liq) 30 ml DAILY PRN PO SEVERE CONSITIPATION; Start at 05:45 Magnesium Hydroxide (Milk Of Magnesia Liq) 30 ml Q12H PRN PO Mild constipation ; Start 09/22/17 at 05:45 Morphine Sulfate (Morphine Inj) 2 mg Q3H PRN IV PUSH Pain 6-10 Last administered on 09/22/17at 06:02; Start 09/22/17 at 05:45 Ondansetron HCl (Zofran Inj) 4 mg Q6H PRN IVP NAUSEA OR VOMITING; Start at 05:45 Senna/Docusate Sodium (Sofie-Colace) 1 tab BID PO ; Start 09/22/17 at 09:00 Sennosides (Senokot) 17.2 mg Q12H PRN PO Moderate constipation; Start 09/22/17 at 05:45 Sodium Chloride (NS Flush) 2 ml BID IV FLUSH ; Start 09/22/17 at 09:00 Family History not relevant to this presentation. Social History quit smoking years ago. doesn't drink. Physical Exam Vital Signs Vital Signs Date Time Temp Pulse Resp B/P (MAP) Pulse Ox O2 Delivery O2 Flow Rate FiO2 09/22/17 06:35 09/22/17 06:03 86 16 145/72 (96) 94 Nasal Cannula 2.00 09/22/17 03:23 97.4 125 18 153/85 (107) 92 Physical Exam GENERAL: This is a well-nourished, well-developed patient, in no apparent distress. SKIN: No rashes, ecchymoses or lesions. Cool and dry. HEAD: Atraumatic. Normocephalic. No temporal or scalp tenderness. EYES: Pupils equal round and reactive. Extraocular motions intact. No scleral icterus. No injection or drainage. ENT: Nose without bleeding, purulent drainage or septal hematoma. Throat without erythema, tonsillar hypertrophy or exudate. Uvula midline. Airway patent. NECK: Trachea midline. No JVD or lymphadenopathy. Supple, nontender, no meningeal signs. CARDIOVASCULAR: Regular rate and rhythm without murmurs, gallops, or rubs. RESPIRATORY: Clear to auscultation. Breath sounds equal bilaterally. No wheezes , rales, or rhonchi. GASTROINTESTINAL: Abdomen soft, non-tender, nondistended. No hepato-splenomegaly , or palpable masses. No guarding. MUSCULOSKELETAL: Extremities without clubbing, cyanosis, or edema. No joint tenderness, effusion, or edema noted. No calf tenderness. Negative Homans sign bilaterally. NEUROLOGICAL: Awake and alert. Cranial nerves II through XII intact. Motor and sensory grossly within normal limits. Five out of 5 muscle strength in all muscle groups. Normal speech. Laboratory Laboratory Tests Test 09/22/17 04:00 White Blood Count 12.1 Red Blood Count 4.47 Hemoglobin 13.0 Hematocrit 38.8 Mean Corpuscular Volume 86.9 Mean Corpuscular Hemoglobin 29.0 Mean Corpuscular Hemoglobin Concent 33.4 Red Cell Distribution Width 14.5 Platelet Count 319 Mean Platelet Volume 6.4 Neutrophils (%) (Auto) 74.7 Lymphocytes (%) (Auto) 15.4 Monocytes (%) (Auto) 6.5 Eosinophils (%) (Auto) 2.2 Basophils (%) (Auto) 1.2 Neutrophils # (Auto) 9.0 Lymphocytes # (Auto) 1.9 Monocytes # (Auto) 0.8 Eosinophils # (Auto) 0.3 Basophils # (Auto) 0.1 CBC Comment DIFF FINAL Differential Comment Prothrombin Time 22.0 Prothromb Time International Ratio 2.2 Activated Partial Thromboplast Time 32.8 Blood Urea Nitrogen 16 Creatinine 1.02 Random Glucose 96 Calcium Level 8.4 Sodium Level 141 Potassium Level 4.0 Chloride Level 107 Carbon Dioxide Level 24.2 Anion Gap 10 Estimat Glomerular Filtration Rate 51 Result Diagram: 09/22/17 0400 09/22/17 0400 Imaging Last Impressions Lower Extremity CT 09/22/17 0000 Signed Impressions: Service Date/Time: Friday, September 22, 2017 05:40 - CONCLUSION: No fracture. Mild subcutaneous contusion laterally of the left hip without organized hematoma. Chronic findings as above. Niko Velazquez MD Hip and Pelvis X-Ray 09/22/17 0000 Signed Impressions: Service Date/Time: Friday, September 22, 2017 03:08 - CONCLUSION: Possible nondisplaced fracture of the left femoral neck. CT recommended. MD Lolis Fitzpatrick VTE Risk Assessment Capnavini VTE Risk Assessment: Mod/High Risk (score >= 2) Caprini Risk Assessment Model Point Value = 1 Point Value = 2 Point Value = 3 Point Value = 5 Age 41-60 Minor surgery BMI > 25 kg/m2 Swollen legs Varicose veins or History of unexplained or recurrent spontaneous Oral contraceptives or hormone replacement Sepsis (< 1 month) Serious lung disease, including pneumonia (< 1 month) Abnormal pulmonary function Acute myocardial infarction Congestive heart failure (< 1 month) History of inflammatory bowel disease Medical patient at bed rest Age 61-74 Arthroscopic surgery Major open surgery (> 45 min) Laparoscopic surgery (> 45 min) Malignancy Confined to bed (> 72 hours) Immobilizing plaster cast Central venous access Age >= 75 History of VTE Family history of VTE Factor V Leiden Prothrombin [id number] Lupus anticoagulant Anticardiolipin antibodies Elevated serum homocysteine Heparin-induced thrombocytopenia Other congenital or acquired thrombophilia Stroke (< 1 month) Elective arthroplasty Hip, pelvis, or leg fracture Acute spinal cord injury (< 1 month) Prophylaxis Regimen Total Risk Factor Score Risk Level Prophylaxis Regimen 0-1 Low Early ambulation 2 Moderate Order ONE of the following: *Sequential Compression Device (SCD) *Heparin 5000 units SQ BID 3-4 Higher Order ONE of the following medications: *Heparin 5000 units SQ TID *Enoxaparin/Lovenox 40 mg SQ daily (WT < 150 kg, CrCl > 30 mL/min) *Enoxaparin/Lovenox 30 mg SQ daily (WT < 150 kg, CrCl > 10-29 mL/min) *Enoxaparin/Lovenox 30 mg SQ BID (WT < 150 kg, CrCl > 30 mL/min) AND/OR *Sequential Compression Device (SCD) 5 or more Highest Order ONE of the following medications: *Heparin 5000 units SQ TID (Preferred with Epidurals) *Enoxaparin/Lovenox 40 mg SQ daily (WT < 150 kg, CrCl > 30 mL/min) *Enoxaparin/Lovenox 30 mg SQ daily (WT < 150 kg, CrCl > 10-29 mL/min) *Enoxaparin/Lovenox 30 mg SQ BID (WT < 150 kg, CrCl > 30 mL/min) AND *Sequential Compression Device (SCD) Assessment and Plan Assessment and Plan A/P - left hip pain after a fall CT of the left lower extremity with no fracture. continue with pain control- consulted PT and case management. -atrial fibrillation; on coumadin and digoxin- INR is therapeutic- consulted pharmacy for coumadin dosing. -osteoarthritis- continue with pain control. -hypothyroidism; resume home meds. -DVT prophylaxis; on Coumadin. Discussed Condition With the patient and RN. Ivory Romero MD Sep 22, 2017 08:29
[2017-09-22] MEDS ORDERED: ALPRAZolam 0.5 MG TAB PO PRN (08:30)
[2017-09-22] MEDS ORDERED: GABAPENTIN 100 MG CAP PO SCH (09:00)
[2017-09-22] MEDS ORDERED: PILL SPLITTER OTHER PRN (09:00)
[2017-09-22] MEDS: CYCLOBENZAPRINE HCL 10 MG TAB PO SCH ×3 (10:20→16:56)
[2017-09-22] MEDS: DIGOXIN 0.125 MG TAB PO SCH (10:21)
[2017-09-22] MEDS: ALPRAZolam 0.5 MG TAB PO SCH (10:21)
[2017-09-22] MEDS: ESCITALOPRAM OXALATE 10 MG TAB PO SCH (10:21)
[2017-09-22] MEDS: DOCUSATE SODIUM 50 MG/SENNA 8.6 MG TAB PO SCH ×2 (10:21→22:33)
[2017-09-22] MEDS: LEVOTHYROXINE SODIUM 88 MCG TAB PO SCH (10:25)
[2017-09-22] MEDS: CALCIUM/VITAMIN D 250 MG/125 U TAB PO SCH (10:25)
[2017-09-22] MEDS: SODIUM CHLORIDE 0.9% FLUSH 10 ML FLUSH IV FLUSH SCH ×2 (10:26→22:41)
[2017-09-22] MEDS: FAMOTIDINE 20 MG TAB PO SCH ×2 (10:26→22:34)
[2017-09-22 11:00] VITALS: BP 112/59; PULSE 84; RESP 16; TEMP 96.7; O2SAT 95
[2017-09-22] MEDS ORDERED: ACETAMINOPHEN/HYDROcodone 325 MG/5 MG TAB PO PRN ×2 (12:00)
[2017-09-22] MEDS: GABAPENTIN 100 MG CAP PO SCH ×2 (13:08→16:56)
[2017-09-22] MEDS: FLUTICASONE 100 MCG/VILANTEROL 25 MCG INHALER INH SCH (13:08)
[2017-09-22] MEDS ORDERED: traMADol HCL 50 MG TAB PO PRN (15:00)
[2017-09-22 16:00] VITALS: BP 146/88; PULSE 102; RESP 16; TEMP 96.2; O2SAT 93
[2017-09-22] MEDS: WARFARIN SOD 6 MG TAB PO SCH (16:02)
[2017-09-22] MEDS ORDERED: NAMZARIC PO SCH (17:00)
[2017-09-22 19:15] VITALS: BP 134/70; PULSE 96; RESP 18; TEMP 97.5; O2SAT 92
[2017-09-22] MEDS ORDERED: GABAPENTIN 300 MG CAP PO SCH (21:00)
[2017-09-22] MEDS: MIRTAZAPINE 15 MG TAB PO SCH (22:34)
[2017-09-23 00:20] VITALS: BP 133/64; PULSE 97; RESP 17; TEMP 97; O2SAT 95
[2017-09-23] MEDS: LEVOTHYROXINE SODIUM 88 MCG TAB PO SCH (06:04)
[2017-09-23 06:47] LABS: INTERNATIONAL NORMALIZED RATIO 2.1 RATIO; PROTHROMBIN TIME - PATIENT 21.4 SEC (9.8-11.6)
[2017-09-23 06:54] LABS: ALBUMIN 3.2 GM/DL (3.4-5.0); AST (GOT) 70 U/L (15-37); BICARBONATE 27.6 MEQ/L (21.0-32.0); BLOOD UREA NITROGEN 9 MG/DL (7-18); CALCIUM 8.7 MG/DL (8.5-10.1); CHLORIDE 101 MEQ/L (98-107); CREATININE 0.86 MG/DL (0.50-1.00); GLOMERULAR FILTRATION RATE 62 ML/MIN (>89); GLUCOSE,RANDOM 105 MG/DL (74-106); SODIUM (NA) 137 MEQ/L (136-145)
[2017-09-23 06:55] LABS: ALT (GPT) 74 U/L (10-53)
[2017-09-23 06:57] LABS: ALKALINE PHOSPHATASE 123 U/L (45-117); AUTOMATED NEUTROPHIL # 8.3 TH/MM3 (1.8-7.7); BASOPHIL # 0.1 TH/MM3 (0-0.2); BASOPHIL % 1.1 % (0.0-2.0); EOSINOPHIL # 0.2 TH/MM3 (0-0.4); HEMATOCRIT 39.6 % (35.0-46.0); HEMOGLOBIN 13.6 GM/DL (11.6-15.3); LYMPH % 14.3 % (9.0-44.0); LYMPHOCYTE # 1.6 TH/MM3 (1.0-4.8); MEAN CELL VOLUME 86.3 FL (80.0-100.0); MEAN CORPUSCULAR HEMOGLOBIN 29.6 PG (27.0-34.0); MEAN CORPUSCULAR HGB CONC 34.3 % (32.0-36.0); MEAN PLATELET VOLUME 6.7 FL (7.0-11.0); MONO % 8.4 % (0.0-8.0); MONOCYTE # 0.9 TH/MM3 (0-0.9); NEUT % 74.2 % (16.0-70.0); PLATELET COUNT 260 TH/MM3 (150-450); RED BLOOD COUNT 4.59 MIL/MM3 (4.00-5.30); RED CELL DISTRIBUTION WIDTH 14.2 % (11.6-17.2); TOTAL BILIRUBIN ADULT 1.4 MG/DL (0.2-1.0); TOTAL PROTEIN 6.6 GM/DL (6.4-8.2); WHITE BLOOD COUNT 11.2 TH/MM3 (4.0-11.0)
[2017-09-23 08:00] VITALS: BP 142/86; PULSE 85; RESP 18; TEMP 96.3; O2SAT 95
[2017-09-23] MEDS: ESCITALOPRAM OXALATE 10 MG TAB PO SCH (09:00)
[2017-09-23] MEDS: CYCLOBENZAPRINE HCL 10 MG TAB PO SCH ×3 (09:00→18:24)
[2017-09-23] MEDS: FAMOTIDINE 20 MG TAB PO SCH ×2 (09:00→21:31)
[2017-09-23] MEDS: DOCUSATE SODIUM 50 MG/SENNA 8.6 MG TAB PO SCH ×2 (09:00→21:30)
[2017-09-23] MEDS: CALCIUM/VITAMIN D 250 MG/125 U TAB PO SCH (09:00)
[2017-09-23] MEDS: GABAPENTIN 100 MG CAP PO SCH ×3 (09:00→18:26)
[2017-09-23] MEDS: DIGOXIN 0.125 MG TAB PO SCH (09:00)
[2017-09-23] MEDS: FLUTICASONE 100 MCG/VILANTEROL 25 MCG INHALER INH SCH (09:00)
[2017-09-23] MEDS: ALPRAZolam 0.5 MG TAB PO SCH (09:00)
[2017-09-23] MEDS: SODIUM CHLORIDE 0.9% FLUSH 10 ML FLUSH IV FLUSH SCH ×2 (09:00→21:31)
[2017-09-23 12:00] VITALS: BP 130/78; PULSE 113; RESP 18; TEMP 95.9; O2SAT 92
--- NOTE | 2017-09-23 12:46 | HHI.PR ---
Subjective Remarks in no acute distress. however very uncomfortable with the back pain. she says that ' only Morphine helps her with the pain'. d/w the RN. Objective Vitals Vital Signs Date Time Temp Pulse Resp B/P (MAP) Pulse Ox O2 Delivery O2 Flow Rate FiO2 09/23/17 12:00 95.9 113 18 130/78 (95) 92 09/23/17 08:00 96.3 85 18 142/86 (104) 95 09/23/17 00:20 97.0 97 17 133/64 (87) 95 09/22/17 19:15 97.5 96 18 134/70 (91) 92 09/22/17 16:00 96.2 102 16 146/88 (107) 93 09/22/17 13:30 18 I/O 09/22/17 09/22/17 09/22/17 09/23/17 09/23/17 09/23/17 06:59 14:59 22:59 06:59 14:59 22:59 Intake Total 580 ml 480 ml Balance 580 ml 480 ml Intake Oral 580 ml 480 ml # Voids 3 4 # Bowel Movements 0 Result Diagram: 09/23/17 0525 09/23/17 0525 Imaging Last Impressions Lower Extremity CT 09/22/17 0000 Signed Impressions: Service Date/Time: Friday, September 22, 2017 05:40 - CONCLUSION: No fracture. Mild subcutaneous contusion laterally of the left hip without organized hematoma. Chronic findings as above. Niko Velazquez MD Hip and Pelvis X-Ray 09/22/17 0000 Signed Impressions: Service Date/Time: Friday, September 22, 2017 03:08 - CONCLUSION: Possible nondisplaced fracture of the left femoral neck. CT recommended. Niko Velazquez MD Objective Remarks GENERAL: This is a well-nourished, well-developed patient, in no apparent distress. CARDIOVASCULAR: Regular rate and regular rhythm without murmurs, gallops, or rubs. RESPIRATORY: Clear to auscultation. Breath sounds equal bilaterally. No wheezes , rales, or rhonchi. GASTROINTESTINAL: Abdomen soft, non-tender, nondistended. Normal, active bowel sounds MUSCULOSKELETAL: Extremities without clubbing, cyanosis, or edema. NEURO: Alert & Oriented x4 to person, place, time, situation. Moves all ext x4 Medications and IVs Inpatient Medications Acetaminophen (Tylenol) 650 mg Q6H PRN PO FEVER/PAIN SCALE 1 TO 2; Start at 05:45 Acetaminophen/ Hydrocodone Bitart ([place] 5-325 Mg) 2 tab Q4H PRN PO PAIN 6-10 ; Start 09/22/17 at 12:00; Stop 09/22/17 at 14:47; Status DC Alprazolam (Xanax) 0.5 mg DAILY PO Last administered on 09/22/17at 10:21; Start 09/22/17 at 09:00 Bisacodyl (Dulcolax Supp) 10 mg DAILY PRN RECTAL SEVERE CONSITIPATION; Start at 05:45 Calcium/Vitamin D (Oscal-D 250-125) 500 mg DAILY PO Last administered on at 09:00; Start 09/22/17 at 09:30 Cyclobenzaprine HCl (Flexeril) 5 mg TID PO Last administered on 09/23/17at 09:00 ; Start 09/22/17 at 09:00 Digoxin (Lanoxin) 0.125 mg DAILY PO Last administered on 09/23/17 09:00; Start 09/22/17 at 09:00 Escitalopram Oxalate (Lexapro) 10 mg DAILY PO Last administered on 09/23/17 09 :00; Start 09/22/17 at 09:00 Famotidine (Pepcid) 10 mg BID PO Last administered on 09/23/17at 09:00; Start at 09:30 Fluticasone/ Vilanterol (Breo Ellipta 100-25 Inh) 1 puff DAILY INH Last administered on 09/23/17 09:00; Start 09/22/17 at 10:00 Gabapentin (Neurontin) 200 mg TID PO Last administered on 09/23/17 09:00; Start 09/22/17 at 13:00 Lactulose (Lactulose Liq) 30 ml DAILY PRN PO SEVERE CONSITIPATION; Start at 05:45 Levothyroxine Sodium (Synthroid) 88 mcg DAILY@0600 PO Last administered on 09/23at 06:04; Start 09/22/17 at 09:30 Magnesium Hydroxide (Milk Of Magnesia Liq) 30 ml Q12H PRN PO Mild constipation ; Start 09/22/17 at 05:45 Mirtazapine (Remeron) 7.5 mg HS PO Last administered on 09/22/17at 22:34; Start 09/22/17 at 21:00 Miscellaneous (Pill Splitter) 1 ea UNSCH PRN OTHER SEE LABEL COMMENTS; Start at 09:00 Morphine Sulfate (Morphine Inj) 2 mg Q3H PRN IV PUSH BREAKTHROUGH PAIN Last administered on 09/22/17at 22:41; Start 09/22/17 at 05:45 Ondansetron HCl (Zofran Inj) 4 mg Q6H PRN IVP NAUSEA OR VOMITING; Start at 05:45 Patient Medication Teaching (Coumadin Booklet) 1 ONCE ONCE OTHER Last administered on 09/22/17at 16:07; Start 09/22/17 at 16:00; Stop 09/22/17 at 16:01 ; Status DC Patient Own Medication PT OWN MED: NAMZA... DAILY@1700 PO ; Start 09/22/17 at 17 :00; Status Future Hold Pharmacy Profile Note 0 ml @ 0 mls/hr UNSCH OTHER ; Start 09/22/17 at 08:30 Ropinirole HCl (Requip) 0.5 mg BID PO Last administered on 09/23/17at 09:00; Start 09/22/17 at 09:00 Senna/Docusate Sodium (Sofie-Colace) 1 tab BID PO Last administered on at 09:00; Start 09/22/17 at 09:00 Sennosides (Senokot) 17.2 mg Q12H PRN PO Moderate constipation; Start 09/22/17 at 05:45 Sodium Chloride (NS Flush) 2 ml BID IV FLUSH Last administered on 09/23/17at 09: 00; Start 09/22/17 at 09:00 Tramadol HCl (Ultram) 50 mg Q6H PRN PO PAIN SCALE 3 TO 10; Start 09/22/17 at 15 :00 Warfarin Sodium (Coumadin) 6 mg DAILY@1600 PO Last administered on 09/22/17at 16 :02; Start 09/22/17 at 16:00 A/P Problem List: (1) Left hip pain ICD Code: M25.552 - Pain in left hip Assessment and Plan A/P - left hip pain after a fall CT of the left lower extremity with no fracture. continue with pain control- will dc Ultram and start on Morphine SR- will monitor and adjust the pain regimen as needed. consulted PT and case management. -elevated LFT's- will monitor for now; repeat LFT's tomorrow.check CPK level. -atrial fibrillation; on coumadin and digoxin- INR is therapeutic- consulted pharmacy for coumadin dosing. -osteoarthritis- continue with pain control. -hypothyroidism; resumed home meds. -DVT prophylaxis; on Coumadin. Discharge Planning dc planning to SNF within the next 24-48 hrs- if pain is better controlled- pending PT evaluation. d/w the case management. Ivory Romero MD Sep 23, 2017 12:45
[2017-09-23] MEDS: MORPHINE SULFATE 15 MG CONTROLLED RELEASE TAB PO SCH ×2 (13:32→21:31)
[2017-09-23 16:00] VITALS: BP 106/63; PULSE 92; RESP 18; TEMP 96.2; O2SAT 96
[2017-09-23] MEDS: WARFARIN SOD 6 MG TAB PO SCH (18:24)
[2017-09-23 20:00] VITALS: BP 92/62; PULSE 85; RESP 17; TEMP 96.9; O2SAT 97
[2017-09-23] MEDS: MIRTAZAPINE 15 MG TAB PO SCH (21:30)
[2017-09-23 23:47] VITALS: BP 102/57; PULSE 85; RESP 18; TEMP 97.1; O2SAT 95
[2017-09-24 04:45] VITALS: BP 108/67; PULSE 91; RESP 18; TEMP 96.7; O2SAT 96
[2017-09-24] MEDS: LEVOTHYROXINE SODIUM 88 MCG TAB PO SCH (06:00)
[2017-09-24 06:45] LABS: INTERNATIONAL NORMALIZED RATIO 1.9 RATIO
[2017-09-24 07:14] LABS: ALBUMIN 3.1 GM/DL (3.4-5.0); ALKALINE PHOSPHATASE 184 U/L (45-117); ALT (GPT) 145 U/L (10-53); AST (GOT) 175 U/L (15-37); BICARBONATE 27.8 MEQ/L (21.0-32.0); BLOOD UREA NITROGEN 14 MG/DL (7-18); CALCIUM 8.4 MG/DL (8.5-10.1); CHLORIDE 101 MEQ/L (98-107); CREATININE 0.82 MG/DL (0.50-1.00); GLOMERULAR FILTRATION RATE 66 ML/MIN (>89); GLUCOSE,RANDOM 99 MG/DL (74-106); SODIUM (NA) 139 MEQ/L (136-145); TOTAL BILIRUBIN ADULT 1.6 MG/DL (0.2-1.0); TOTAL PROTEIN 6.4 GM/DL (6.4-8.2)
[2017-09-24 08:00] VITALS: BP 109/60; PULSE 99; RESP 18; TEMP 95.6; O2SAT 94
[2017-09-24] MEDS: SODIUM CHLORIDE 0.9% FLUSH 10 ML FLUSH IV FLUSH SCH ×2 (09:00→23:33)
[2017-09-24] MEDS: CYCLOBENZAPRINE HCL 10 MG TAB PO SCH (09:00)
[2017-09-24] MEDS: ALPRAZolam 0.5 MG TAB PO SCH (09:00)
[2017-09-24] MEDS: CALCIUM/VITAMIN D 250 MG/125 U TAB PO SCH (09:26)
[2017-09-24] MEDS: MORPHINE SULFATE 15 MG CONTROLLED RELEASE TAB PO SCH (09:27)
[2017-09-24] MEDS: GABAPENTIN 100 MG CAP PO SCH (09:28)
[2017-09-24] MEDS: DIGOXIN 0.125 MG TAB PO SCH (09:28)
[2017-09-24] MEDS: ESCITALOPRAM OXALATE 10 MG TAB PO SCH (09:28)
[2017-09-24] MEDS: FAMOTIDINE 20 MG TAB PO SCH ×2 (09:28→23:33)
[2017-09-24] MEDS: DOCUSATE SODIUM 50 MG/SENNA 8.6 MG TAB PO SCH ×2 (09:28→23:32)
[2017-09-24 11:48] VITALS: BP 114/78; PULSE 101; RESP 18; TEMP 98.3; O2SAT 94
[2017-09-24] MEDS ORDERED: SODIUM CHLOR 0.9% 1000 ML INJ 1,000 ML IV ONE (13:00)
--- NOTE | 2017-09-24 13:02 | HHI.PR ---
Subjective Remarks in no acute distress. mildly lethargic today. but pain is somewhat better today. no abdominal pain, nausea or vomiting. Objective Vitals Vital Signs Date Time Temp Pulse Resp B/P (MAP) Pulse Ox O2 Delivery O2 Flow Rate FiO2 09/24/17 11:48 98.3 101 18 114/78 (90) 94 09/24/17 08:00 95.6 99 18 109/60 (76) 94 09/24/17 04:45 96.7 91 18 108/67 (81) 96 09/23/17 23:47 97.1 85 18 102/57 (72) 95 09/23/17 20:00 96.9 85 17 92/62 (72) 97 09/23/17 16:00 96.2 92 18 106/63 (77) 96 I/O 09/23/17 09/23/17 09/23/17 09/24/17 09/24/17 09/24/17 07:00 15:00 23:00 07:00 15:00 23:00 Intake Total 480 ml 240 ml 120 ml Balance 480 ml 240 ml 120 ml Intake Oral 480 ml 240 ml 120 ml # Voids 4 1 2 # Bowel Movements 0 0 0 Result Diagram: 09/23/17 0525 09/24/17 0500 Objective Remarks GENERAL: This is a well-nourished, well-developed patient, in no apparent distress. CARDIOVASCULAR: Regular rate and regular rhythm without murmurs, gallops, or rubs. RESPIRATORY: Clear to auscultation. Breath sounds equal bilaterally. No wheezes , rales, or rhonchi. GASTROINTESTINAL: Abdomen soft, non-tender, nondistended. Normal, active bowel sounds MUSCULOSKELETAL: Extremities without clubbing, cyanosis, or edema. NEURO: Alert & Oriented x4 to person, place, time, situation. Moves all ext x4 Medications and IVs Inpatient Medications Acetaminophen (Tylenol) 650 mg Q6H PRN PO FEVER/PAIN SCALE 1 TO 2; Start at 05:45 Acetaminophen/ Hydrocodone Bitart ([place] 5-325 Mg) 2 tab Q4H PRN PO PAIN 6-10 ; Start 09/22/17 at 12:00; Stop 09/22/17 at 14:47; Status DC Alprazolam (Xanax) 0.5 mg DAILY PO Last administered on 09/22/17at 10:21; Start 09/22/17 at 09:00 Bisacodyl (Dulcolax Supp) 10 mg DAILY PRN RECTAL SEVERE CONSITIPATION; Start at 05:45 Calcium/Vitamin D (Oscal-D 250-125) 500 mg DAILY PO Last administered on 09:26; Start 09/22/17 at 09:30 Cyclobenzaprine HCl (Flexeril) 5 mg TID PO Last administered on 09/23/17at 18:24 ; Start 09/22/17 at 09:00 Digoxin (Lanoxin) 0.125 mg DAILY PO Last administered on 09/24/17 09:28; Start 09/22/17 at 09:00 Escitalopram Oxalate (Lexapro) 10 mg DAILY PO Last administered on 09/24/17 09 :28; Start 09/22/17 at 09:00 Famotidine (Pepcid) 10 mg BID PO Last administered on 09/24/17 09:28; Start at 09:30 Fluticasone/ Vilanterol (Breo Ellipta 100-25 Inh) 1 puff DAILY INH Last administered on 09/23/17at 09:00; Start 09/22/17 at 10:00 Gabapentin (Neurontin) 200 mg TID PO Last administered on 09/24/17 09:28; Start 09/22/17 at 13:00 Lactulose (Lactulose Liq) 30 ml DAILY PRN PO SEVERE CONSITIPATION; Start at 05:45 Levothyroxine Sodium (Synthroid) 88 mcg DAILY@0600 PO Last administered on 09/24at 06:00; Start 09/22/17 at 09:30 Magnesium Hydroxide (Milk Of Magnesia Liq) 30 ml Q12H PRN PO Mild constipation ; Start 09/22/17 at 05:45 Mirtazapine (Remeron) 7.5 mg HS PO Last administered on 09/23/17at 21:30; Start 09/22/17 at 21:00 Miscellaneous (Pill Splitter) 1 ea UNSCH PRN OTHER SEE LABEL COMMENTS; Start at 09:00 Morphine Sulfate (Morphine Inj) 2 mg Q3H PRN IV PUSH BREAKTHROUGH PAIN Last administered on 09/22/17at 22:41; Start 09/22/17 at 05:45 Morphine Sulfate (Oramorph Sr) 15 mg Q12HR PO Last administered on 09/24/17at 09 :27; Start 09/23/17 at 12:45 Ondansetron HCl (Zofran Inj) 4 mg Q6H PRN IVP NAUSEA OR VOMITING; Start at 05:45 Patient Medication Teaching (Coumadin Booklet) 1 ONCE ONCE OTHER Last administered on 09/22/17at 16:07; Start 09/22/17 at 16:00; Stop 09/22/17 at 16:01 ; Status DC Patient Own Medication PT OWN MED: NAMZA... DAILY@1700 PO ; Start 09/22/17 at 17 :00; Status Future Hold Pharmacy Profile Note 0 ml @ 0 mls/hr UNSCH OTHER ; Start 09/22/17 at 08:30 Ropinirole HCl (Requip) 0.5 mg BID PO Last administered on 09/24/17at 09:27; Start 09/22/17 at 09:00 Senna/Docusate Sodium (Sofie-Colace) 1 tab BID PO Last administered on at 09:28; Start 09/22/17 at 09:00 Sennosides (Senokot) 17.2 mg Q12H PRN PO Moderate constipation; Start 09/22/17 at 05:45 Sodium Chloride (NS Flush) 2 ml BID IV FLUSH Last administered on 09/23/17at 21: 31; Start 09/22/17 at 09:00 Tramadol HCl (Ultram) 50 mg Q6H PRN PO PAIN SCALE 3 TO 10; Start 09/22/17 at 15 :00; Stop 09/23/17 at 12:42; Status DC Warfarin Sodium (Coumadin) 1 mg ONCE@1600 ONCE PO ; Start 09/24/17 at 16:00; Stop 09/24/17 at 16:01 A/P Problem List: (1) Left hip pain ICD Code: M25.552 - Pain in left hip Assessment and Plan A/P - left hip pain after a fall CT of the left lower extremity with no fracture. continue with pain control- hold po Morphine- start on Oxycodone. consulted PT and case management. -elevated LFT's- trending up- will check US liver- repeat LFT's tomorrow- will consider GI consult. -atrial fibrillation; on coumadin and digoxin- consulted pharmacy for coumadin dosing. -osteoarthritis- continue with pain control. -hypothyroidism; resumed home meds. -DVT prophylaxis; on Coumadin. Discharge Planning dc planning to SNF - now with worsening LFT's; work-up in progress. not ready for discharge today. Ivory Romero MD Sep 24, 2017 13:02
[2017-09-24] MEDS ORDERED: MORPHINE SULFATE 2 MG/ML INJ IV PUSH PRN (14:00)
--- NOTE | 2017-09-24 14:01 | RADRPT ---
EXAM DATE/TIME: 09/24/2017 13:09 [facility] COMPARISON: None. INDICATIONS : <<Increased lab values. >> MEDICAL HISTORY : Hypertension. Chronic obstructive pulmonary disease. <<Thyroid disease. Emphysema. IBS. Atrail fibr illation. Coumadin. >> SURGICAL HISTORY : Cholecystectomy. Hysterectomy. ENCOUNTER: Initial ACUITY: 1 day PAIN SCORE: 0/10 LOCATION: <<Abdomen. >> MEASUREMENTS: LIVER: <<12.1>> cm length COMMON DUCT: 8 mm RIGHT KIDNEY: <<9.3 x 3.6 x 4.5>> cm SPLEEN: <<10.2>> cm length FINDINGS: LIVER: Normal echotexture without focal lesion or ductal dilatation. COMMON DUCT: No intraluminal mass or stone visualized. Mildly prominent at 8 mm GALLBLADDER: Surgically absent. PANCREAS: The visualized portions are within normal limits. Pancreatic duct mildly prominent at 4 mm RIGHT KIDNEY: No hydronephrosis, stone or mass. SPLEEN: No focal lesion. CONCLUSION: 1. Previous cholecystectomy. No choledocholithiasis identified. Bile duct mildly prominent at 8 mm an d pancreatic duct mildly prominent at 4 mm diameter. No free fluid. No hydronephrosis on the right. Elio Pang MD on September 24, 2017 at 13:57 Board Certified Radiologist. This report was verified electronically.
[2017-09-24 16:00] VITALS: BP 102/59; PULSE 108; RESP 18; TEMP 96.1; O2SAT 93
[2017-09-24] MEDS ORDERED: WARFARIN SOD 1 MG TAB PO ONE (16:00)
[2017-09-24] MEDS: WARFARIN SOD 6 MG TAB PO SCH (16:12)
[2017-09-24] MEDS: ACETAMINOPHEN 325 MG TAB PO PRN (16:25)
[2017-09-24 20:00] VITALS: BP_SYST 104; BP_SYST 138; BP_DIAS 71; BP_DIAS 86; PULSE 114; PULSE 80; RESP 13; RESP 18; TEMP 95.8; TEMP 97.9; O2SAT 91; O2SAT 99
[2017-09-24] MEDS: MIRTAZAPINE 15 MG TAB PO SCH (23:33)
[2017-09-25] VITALS: BP 110/74; PULSE 110; RESP 13; TEMP 96; O2SAT 92
[2017-09-25 04:00] VITALS: BP 105/69; PULSE 98; RESP 13; TEMP 96.1; O2SAT 91
[2017-09-25] MEDS: LEVOTHYROXINE SODIUM 88 MCG TAB PO SCH (06:52)
[2017-09-25 07:30] VITALS: BP 121/74; PULSE 90; RESP 18; TEMP 96; O2SAT 96
[2017-09-25 07:33] LABS: INTERNATIONAL NORMALIZED RATIO 2.4 RATIO; PROTHROMBIN TIME - PATIENT 24.6 SEC (9.8-11.6)
[2017-09-25 07:51] LABS: ALBUMIN 3.4 GM/DL (3.4-5.0); DIRECT BILIRUBIN ADULT 0.3 MG/DL (0.0-0.2)
[2017-09-25 07:52] LABS: INDIRECT BILIRUBIN 0.7 MG/DL (0.0-0.8); TOTAL PROTEIN 7.5 GM/DL (6.4-8.2)
[2017-09-25] MEDS: SODIUM CHLORIDE 0.9% FLUSH 10 ML FLUSH IV FLUSH SCH ×2 (09:00→20:23)
[2017-09-25] MEDS: FLUTICASONE 100 MCG/VILANTEROL 25 MCG INHALER INH SCH (09:04)
[2017-09-25] MEDS: ESCITALOPRAM OXALATE 10 MG TAB PO SCH (09:04)
[2017-09-25] MEDS: FAMOTIDINE 20 MG TAB PO SCH ×2 (09:04→20:23)
[2017-09-25] MEDS: DOCUSATE SODIUM 50 MG/SENNA 8.6 MG TAB PO SCH ×2 (09:04→20:23)
[2017-09-25] MEDS: CALCIUM/VITAMIN D 250 MG/125 U TAB PO SCH (09:05)
[2017-09-25] MEDS: DIGOXIN 0.125 MG TAB PO SCH (09:05)
[2017-09-25 11:24] VITALS: BP 139/60; PULSE 92; RESP 20; TEMP 96.1; O2SAT 94
--- NOTE | 2017-09-25 12:06 | HHI.PR ---
Subjective Remarks in no acute distress. looks more comfortable today. however looks more confused today. no abdominal pain, nausea. d/w the RN. Objective Vitals Vital Signs Date Time Temp Pulse Resp B/P (MAP) Pulse Ox O2 Delivery O2 Flow Rate FiO2 09/25/17 11:24 96.1 92 20 139/60 (86) 94 09/25/17 07:30 96.0 90 18 121/74 (90) 96 09/25/17 04:00 96.1 98 13 105/69 (81) 91 09/25/17 00:00 96.0 110 13 110/74 (86) 92 09/24/17 20:00 95.8 114 13 104/71 (82) 91 09/24/17 16:00 96.1 108 18 102/59 (73) 93 I/O 09/24/17 09/24/17 09/24/17 09/25/17 09/25/17 09/25/17 07:00 15:00 23:00 07:00 15:00 23:00 Intake Total 120 ml 480 ml 240 ml 0 ml 120 ml Balance 120 ml 480 ml 240 ml 0 ml 120 ml Intake Oral 120 ml 480 ml 240 ml 0 ml 120 ml # Voids 2 1 0 1 # Bowel Movements 0 0 0 0 Result Diagram: 09/23/17 0525 09/24/17 0500 Imaging Last Impressions Liver Ultrasound 09/24/17 0000 Signed Impressions: Service Date/Time: Sunday, September 24, 2017 13:09 - CONCLUSION: 1. Previous cholecystectomy. No choledocholithiasis identified. Bile duct mildly prominent at 8 mm and pancreatic duct mildly prominent at 4 mm diameter. No free fluid. No hydronephrosis on the right. Elio Pang MD Lower Extremity CT 09/22/17 0000 Signed Impressions: Service Date/Time: Friday, September 22, 2017 05:40 - CONCLUSION: No fracture. Mild subcutaneous contusion laterally of the left hip without organized hematoma. Chronic findings as above. Niko Velazquez MD Hip and Pelvis X-Ray 09/22/17 0000 Signed Impressions: Service Date/Time: Friday, September 22, 2017 03:08 - CONCLUSION: Possible nondisplaced fracture of the left femoral neck. CT recommended. Niko Velazquez MD Objective Remarks GENERAL: This is a well-nourished, well-developed patient, in no apparent distress. CARDIOVASCULAR: Regular rate and regular rhythm without murmurs, gallops, or rubs. RESPIRATORY: Clear to auscultation. Breath sounds equal bilaterally. No wheezes , rales, or rhonchi. GASTROINTESTINAL: Abdomen soft, non-tender, nondistended. Normal, active bowel sounds MUSCULOSKELETAL: Extremities without clubbing, cyanosis, or edema. NEURO: Alert & Oriented x4 to person, place, time, situation. Moves all ext x4 Medications and IVs Inpatient Medications Acetaminophen (Tylenol) 650 mg Q6H PRN PO FEVER/PAIN SCALE 1 TO 2 Last administered on 09/24/17 16:25; Start 09/22/17 at 05:45 Acetaminophen/ Hydrocodone Bitart ([place] 5-325 Mg) 2 tab Q4H PRN PO PAIN 6-10 ; Start 09/22/17 at 12:00; Stop 09/22/17 at 14:47; Status DC Alprazolam (Xanax) 0.5 mg DAILY PO Last administered on 09/22/17at 10:21; Start 09/22/17 at 09:00; Status Future Hold Bisacodyl (Dulcolax Supp) 10 mg DAILY PRN RECTAL SEVERE CONSITIPATION; Start at 05:45 Calcium/Vitamin D (Oscal-D 250-125) 500 mg DAILY PO Last administered on 09:05; Start 09/22/17 at 09:30 Cyclobenzaprine HCl (Flexeril) 5 mg TID PO Last administered on 09/23/17 18:24 ; Start 09/22/17 at 09:00; Status Future Hold Digoxin (Lanoxin) 0.125 mg DAILY PO Last administered on 09/25/17 09:05; Start 09/22/17 at 09:00 Escitalopram Oxalate (Lexapro) 10 mg DAILY PO Last administered on 09/25/17 09 :04; Start 09/22/17 at 09:00 Famotidine (Pepcid) 10 mg BID PO Last administered on 09/25/17 09:04; Start at 09:30 Fluticasone/ Vilanterol (Breo Ellipta 100-25 Inh) 1 puff DAILY INH Last administered on 09/25/17 09:04; Start 09/22/17 at 10:00 Gabapentin (Neurontin) 200 mg TID PO Last administered on 09/24/17 09:28; Start 09/22/17 at 13:00; Status Future Hold Lactulose (Lactulose Liq) 30 ml DAILY PRN PO SEVERE CONSITIPATION Last administered on 09/24/17at 23:32; Start 09/22/17 at 05:45 Levothyroxine Sodium (Synthroid) 88 mcg DAILY@0600 PO Last administered on 09/25at 06:52; Start 09/22/17 at 09:30 Magnesium Hydroxide (Milk Of Magnesia Liq) 30 ml Q12H PRN PO Mild constipation ; Start 09/22/17 at 05:45 Mirtazapine (Remeron) 7.5 mg HS PO Last administered on 09/24/17at 23:33; Start 09/22/17 at 21:00 Miscellaneous (Pill Splitter) 1 ea UNSCH PRN OTHER SEE LABEL COMMENTS; Start at 09:00 Morphine Sulfate (Morphine Inj) 2 mg Q6HR PRN IV PUSH BREAKTHROUGH PAIN; Start 09/24/17 at 14:00 Morphine Sulfate (Oramorph Sr) 15 mg Q12HR PO Last administered on 09/24/17at 09 :27; Start 09/23/17 at 12:45; Status Future Hold Ondansetron HCl (Zofran Inj) 4 mg Q6H PRN IVP NAUSEA OR VOMITING; Start at 05:45 Oxycodone HCl (Roxicodone) 5 mg Q4HR PRN PO PAIN 3-10; Start 09/24/17 at 16:00 Patient Medication Teaching (Coumadin Booklet) 1 ONCE ONCE OTHER Last administered on 09/22/17at 16:07; Start 09/22/17 at 16:00; Stop 09/22/17 at 16:01 ; Status DC Patient Own Medication PT OWN MED: NAMZA... DAILY@1700 PO ; Start 09/22/17 at 17 :00; Status Future Hold Pharmacy Profile Note 0 ml @ 0 mls/hr UNSCH OTHER ; Start 09/22/17 at 08:30 Ropinirole HCl (Requip) 0.5 mg BID PO Last administered on 09/25/17at 09:04; Start 09/22/17 at 09:00 Senna/Docusate Sodium (Sofie-Colace) 1 tab BID PO Last administered on at 09:04; Start 09/22/17 at 09:00 Sennosides (Senokot) 17.2 mg Q12H PRN PO Moderate constipation; Start 09/22/17 at 05:45 Sodium Chloride 1,000 ml @ 60 mls/hr [id number] ONCE IV Last administered on 09/24 13:00; Start 09/24/17 at 13:00; Stop 09/25/17 at 05:39; Status DC Sodium Chloride (NS Flush) 2 ml BID IV FLUSH Last administered on 09/24/17at 23: 33; Start 09/22/17 at 09:00 Tramadol HCl (Ultram) 50 mg Q6H PRN PO PAIN SCALE 3 TO 10; Start 09/22/17 at 15 :00; Stop 09/23/17 at 12:42; Status DC Warfarin Sodium (Coumadin) 1 mg ONCE@1600 ONCE PO Last administered on at 16:12; Start 09/24/17 at 16:00; Stop 09/24/17 at 16:01; Status DC A/P Problem List: (1) Left hip pain ICD Code: M25.552 - Pain in left hip Assessment and Plan A/P - left hip pain after a fall CT of the left lower extremity with no fracture. continue with pain control- continue on Oxycodone. consulted PT and case management. -elevated LFT's- liver US; Previous cholecystectomy. No choledocholithiasis identified. Bile duct mildly prominent at 8 mm and pancreatic duct mildly prominent at 4 mm diameter. repeat LFT's today better- repeat LFT's tomorrow. -acute encephalopathy- possibly due to polypharmacy; continue to hold po morphine, xanax, Flexeril and Neurontin for now- will check UA continue with neuro-checks. -atrial fibrillation; on coumadin and digoxin- consulted pharmacy for coumadin dosing. -osteoarthritis- continue with pain control. -hypothyroidism; resumed home meds. -DVT prophylaxis; on Coumadin. Discharge Planning dc planning to SNF - possible tomorrow if stable- Ivory Romero MD Sep 25, 2017 12:06
[2017-09-25] MEDS ORDERED: OXYC-392 PO ×2 (12:09→12:45)
[2017-09-25] MEDS ORDERED: ALPR0.5T3 PO (12:09)
[2017-09-25] MEDS: WARFARIN SOD 6 MG TAB PO SCH (15:50)
[2017-09-25 16:00] VITALS: BP 125/80; PULSE 84; RESP 18; TEMP 95.7; O2SAT 97
[2017-09-25 18:17] LABS: BILIRUBIN, URINE NEG (NEG); BLOOD, URINE NEG (NEG); GLUCOSE,URINE NEG (NEG); KETONE, URINE 10 mg/dL (NEG); NITRITE,URINE NEG (NEG); PH, URINE 5.5 (5.0-8.5); SQUAMOUS EPITHELIAL CELL URINE <1 /hpf (0-5); URINE COLOR YELLOW (YELLW/STRAW); URINE LEUKOCYTE ESTERASE NEG (NEG)
[2017-09-25 20:10] VITALS: BP 131/68; PULSE 95; RESP 18; TEMP 97.2; O2SAT 94
[2017-09-25] MEDS: MIRTAZAPINE 15 MG TAB PO SCH (20:23)
[2017-09-26 04:53] LABS: PROTHROMBIN TIME - PATIENT 30.6 SEC (9.8-11.6)
[2017-09-26 05:17] LABS: DIRECT BILIRUBIN ADULT 0.3 MG/DL (0.0-0.2); INDIRECT BILIRUBIN 0.7 MG/DL (0.0-0.8); TOTAL PROTEIN 6.6 GM/DL (6.4-8.2)
[2017-09-26] MEDS: ACETAMINOPHEN 325 MG TAB PO PRN ×2 (05:41→11:33)
[2017-09-26] MEDS: LEVOTHYROXINE SODIUM 88 MCG TAB PO SCH (05:41)
[2017-09-26] MEDS: DIGOXIN 0.125 MG TAB PO SCH (07:51)
[2017-09-26] MEDS: FAMOTIDINE 20 MG TAB PO SCH ×2 (07:51→19:58)
[2017-09-26] MEDS: CALCIUM/VITAMIN D 250 MG/125 U TAB PO SCH (07:51)
[2017-09-26] MEDS: ESCITALOPRAM OXALATE 10 MG TAB PO SCH (07:51)
[2017-09-26] MEDS: SODIUM CHLORIDE 0.9% FLUSH 10 ML FLUSH IV FLUSH SCH ×3 (07:52→19:58)
[2017-09-26] MEDS: DOCUSATE SODIUM 50 MG/SENNA 8.6 MG TAB PO SCH ×2 (07:53→19:58)
[2017-09-26] MEDS: FLUTICASONE 100 MCG/VILANTEROL 25 MCG INHALER INH SCH (07:53)
[2017-09-26 07:59] VITALS: BP 155/75; PULSE 80; RESP 18; TEMP 97.4; O2SAT 93
--- NOTE | 2017-09-26 11:45 | HHI.DS ---
Discharge Summary Admission Date Sep 22, 2017 at 06:09 Discharge Date: Sep 26, 2017 Admitting Diagnosis Left hip pain (1) Left hip pain ICD Code: M25.552 - Pain in left hip Diagnosis: Principal Procedures None Brief History - From Admission HPI from the admitting physician patient is a a pleasant 87 y/o female with history of osteoarthritis,atrial fibrillation and hypothyroidism who was brought to ER after she fell. she says that she went to bathroom last night when she fell. she denies any prodromal symptoms before the fall and there's no report of syncope. she started to have left hip pain after the fall. she says that she couldn't put the pressure back on the left foot. otherwise she denies any other symptoms including chest pain, abdominal pain, nausea or dizziness. CBC/BMP: 09/23/17 0525 09/24/17 0500 Significant Findings Laboratory Tests Test 09/24/17 05:00 09/25/17 05:49 09/25/17 13:56 09/25/17 15:45 Prothrombin Time 19.0 SEC (9.8-11.6) 24.6 SEC (9.8-11.6) Albumin 3.1 GM/DL (3.4-5.0) Calcium Level 8.4 MG/DL (8.5-10.1) Alkaline Phosphatase 184 U/L (45-117) 222 U/L (45-117) Aspartate Amino Transf (AST/SGOT) 175 U/L (15-37) 97 U/L (15-37) Alanine Aminotransferase (ALT/SGPT) 145 U/L (10-53) 130 U/L (10-53) Total Bilirubin 1.6 MG/DL (0.2-1.0) Estimat Glomerular Filtration Rate 66 ML/MIN (>89) Acetaminophen Level LESS THAN 2.0 MCG/ML Direct Bilirubin 0.3 MG/DL (0.0-0.2) Urine Ketones 10 mg/dL (NEG) Test 09/26/17 04:17 Prothrombin Time 30.6 SEC (9.8-11.6) Direct Bilirubin 0.3 MG/DL (0.0-0.2) Aspartate Amino Transf (AST/SGOT) 42 U/L (15-37) Alanine Aminotransferase (ALT/SGPT) 78 U/L (10-53) Alkaline Phosphatase 162 U/L (45-117) Albumin 3.0 GM/DL (3.4-5.0) Imaging Last Impressions Liver Ultrasound 09/24/17 0000 Signed Impressions: Service Date/Time: Sunday, September 24, 2017 13:09 - CONCLUSION: 1. Previous cholecystectomy. No choledocholithiasis identified. Bile duct mildly prominent at 8 mm and pancreatic duct mildly prominent at 4 mm diameter. No free fluid. No hydronephrosis on the right. Elio Pang MD Lower Extremity CT 09/22/17 0000 Signed Impressions: Service Date/Time: Friday, September 22, 2017 05:40 - CONCLUSION: No fracture. Mild subcutaneous contusion laterally of the left hip without organized hematoma. Chronic findings as above. Niko Velazquez MD Hip and Pelvis X-Ray 09/22/17 0000 Signed Impressions: Service Date/Time: Friday, September 22, 2017 03:08 - CONCLUSION: Possible nondisplaced fracture of the left femoral neck. CT recommended. Niko Velazquez MD PE at Discharge GENERAL: This is a well-nourished, well-developed patient, in no apparent distress. CARDIOVASCULAR: Regular rate and regular rhythm without murmurs, gallops, or rubs. RESPIRATORY: Clear to auscultation. Breath sounds equal bilaterally. No wheezes , rales, or rhonchi. GASTROINTESTINAL: Abdomen soft, non-tender, nondistended. Normal, active bowel sounds MUSCULOSKELETAL: Extremities without clubbing, cyanosis, or edema. NEURO: Alert & Oriented x4 to person, place, time, situation. Moves all ext x4 Pt update on day of discharge Patient reports she is feeling okay except for some left hip discomfort. Hospital Course 87-year-old female admitted and treated for the following: - left hip pain after a fall CT of the left lower extremity with no fracture. continue with pain control- continue on Oxycodone. Continue PT at SNF. -elevated LFT's- liver US; Previous cholecystectomy. No choledocholithiasis identified. Bile duct mildly prominent at 8 mm and pancreatic duct mildly prominent at 4 mm diameter. repeat LFT's today better- repeat LFT's tomorrow. -acute encephalopathy- possibly due to polypharmacy; morphine, Xanax, Flexeril, and Neurontin were held. Neurological status much improved. -atrial fibrillation; on Coumadin and digoxin- -osteoarthritis- continue with pain control. -hypothyroidism; continue home meds. Pt Condition on Discharge: Good Discharge Disposition: Discharge to SNF Discharge Time: > 30 minutes Discharge Instructions DIET: Follow Instructions for: Heart Healthy Diet Activities you can perform: Regular-No Restrictions Follow up Referrals: PCP Follow-up New Medications: Oxycodone (Oxycodone) 5 Mg Tab 5 MG PO Q6HR PRN for pain, #15 TAB 0 Refills Continued Medications: Alprazolam (Alprazolam) 0.5 Mg Tab 0.5 MG PO Q12HR PRN for ANXIETY, #10 TAB 0 Refills (This prescription has been renewed) Calcium Carbonate-Cholecalciferol (Os-Edi Calcium + D3) 500-200 Mg-Unit Tab 1 TAB PO DAILY for Calcium Supplement, TAB 0 Refills Cholestyramine (Questran) 4 Gm/Pkt Powd 4 GM PO DAILY PRN for DIARRHEA, BOX 0 Refills 1 packet contains 4gm of cholestyramine. Digoxin (Digoxin) 0.125 Mg Tab 0.125 MG PO DAILY @ 1200 for Regulate Heart Beat, #30 TAB 0 Refills Escitalopram (Escitalopram) 10 Mg Tab 10 MG PO DAILY, #30 TAB 0 Refills Famotidine (Famotidine) 40 Mg Tab 20 MG PO BID, #60 TAB 0 Refills Fluticasone-Vilanterol Inh (Breo Ellipta Inh) 100-25 Mcg/Act Inh 1 PUFF INH DAILY, #1 INHALER 0 Refills Use daily at the same time. Fluticasone-Vilanterol Inh (Breo Ellipta Inh) 100-25 Mcg/Act Inh 1 PUFF INH DAILY, #1 INHALER 0 Refills Use daily at the same time. 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, #30 CAP 0 Refills Mirtazapine (Mirtazapine) 7.5 Mg Tab 7.5 MG PO HS for Depression Control, #30 TAB 0 Refills Ropinirole (Ropinirole) 0.5 Mg Tab 0.5 MG PO BID, #30 TAB 0 Refills Warfarin (Coumadin) 4 Mg Tab 6 MG PO DAILY @ 1700 for Prevent Blood Clot, #30 TAB 0 Refills Discontinued Medications: Alprazolam (Xanax) 0.5 Mg Tab 0.5 MG PO DAILY for ANXIETY, TAB 0 Refills Cyclobenzaprine (Flexeril) 5 Mg Tab 5 MG PO TID for Muscle Spasm, #90 TAB 0 Refills Gabapentin (Gabapentin) 300 Mg Cap 300 MG PO HS, #60 CAP 0 Refills Gabapentin (Gabapentin) 100 Mg Cap 100 MG PO BID, #60 CAP 0 Refills Hydroxyzine HCl (Hydroxyzine HCl) 25 Mg Tab 25 MG PO TID PRN for ITCHING, TAB 0 Refills Loperamide (Loperamide) 2 Mg Cap 2 MG PO DIRECTED PRN for DIARRHEA, CAP 0 Refills One capsule after each loose stool. Not to exceed 8 capsules per day. Tramadol (Tramadol) 50 Mg Tab 50 MG PO HS PRN for PAIN, TAB 0 Refills Maxi Washington MD Sep 26, 2017 11:45
[2017-09-26 11:50] VITALS: BP 144/80; PULSE 76; RESP 18; TEMP 97; O2SAT 98
[2017-09-26 16:02] VITALS: BP 134/76; PULSE 80; RESP 19; TEMP 97; O2SAT 97
[2017-09-26] MEDS ORDERED: HALOPERIDOL LACTATE 5 MG/ML AMP IM PRN (17:00)
--- NOTE | 2017-09-26 17:00 | HHI.PR ---
Subjective Remarks Patient was set for discharge but became more agitated and combative. Discussed with RN. Objective Vitals Vital Signs Date Time Temp Pulse Resp B/P (MAP) Pulse Ox O2 Delivery O2 Flow Rate FiO2 09/26/17 16:02 97.0 80 19 134/76 (95) 97 09/26/17 11:50 97.0 76 18 144/80 (101) 98 09/26/17 07:59 97.4 80 18 155/75 (101) 93 09/25/17 20:10 97.2 95 18 131/68 (89) 94 I/O 09/25/17 09/25/17 09/25/17 09/26/17 09/26/17 09/26/17 07:00 15:00 23:00 07:00 15:00 23:00 Intake Total 0 ml 600 ml 480 ml 240 ml 200 ml Balance 0 ml 600 ml 480 ml 240 ml 200 ml Intake Oral 0 ml 600 ml 480 ml 240 ml 200 ml # Voids 1 2 3 3 3 # Bowel Movements 0 1 4 1 3 Result Diagram: 09/23/17 0525 09/24/17 0500 Procedures None A/P Problem List: (1) Left hip pain ICD Code: M25.552 - Pain in left hip Assessment and Plan 87-year-old female admitted and treated for the following: - left hip pain after a fall CT of the left lower extremity with no fracture. continue with pain control- continue on Oxycodone. -elevated LFT's- liver US; Previous cholecystectomy. No choledocholithiasis identified. Bile duct mildly prominent at 8 mm and pancreatic duct mildly prominent at 4 mm diameter. repeat LFT's today better- repeat LFT's tomorrow. -acute encephalopathy- possibly due to polypharmacy; ?dementia with behavioral disturbance vs withdrawals. She reports that staff is trying to harm her and refusing all medications. Morphine, Xanax, Flexeril, and Neurontin were held. Ordered Haldol as needed. Seroquel BID when she can tolerate PO. Consult psychiatry -atrial fibrillation; on Coumadin and digoxin- -osteoarthritis- continue with pain control. -hypothyroidism; continue home meds. Maxi Washington MD Sep 26, 2017 17:00
[2017-09-26] MEDS ORDERED: QUEtiapine FUMARATE 25 MG TAB PO ONE (18:00)
[2017-09-26 19:25] VITALS: BP 149/95; PULSE 83; RESP 17; TEMP 97.1; O2SAT 94
[2017-09-26] MEDS: MIRTAZAPINE 15 MG TAB PO SCH (19:57)
[2017-09-27] MEDS: LEVOTHYROXINE SODIUM 88 MCG TAB PO SCH (06:00)
[2017-09-27] MEDS ORDERED: QUEtiapine FUMARATE 25 MG TAB PO SCH (06:00)
[2017-09-27 08:00] VITALS: BP 155/83; PULSE 82; RESP 16; TEMP 96.7; O2SAT 95
[2017-09-27] MEDS: FLUTICASONE 100 MCG/VILANTEROL 25 MCG INHALER INH SCH (09:00)
[2017-09-27] MEDS: SODIUM CHLORIDE 0.9% FLUSH 10 ML FLUSH IV FLUSH SCH (09:00)
[2017-09-27] MEDS: ESCITALOPRAM OXALATE 10 MG TAB PO SCH (09:07)
[2017-09-27] MEDS: FAMOTIDINE 20 MG TAB PO SCH (09:07)
[2017-09-27] MEDS: CALCIUM/VITAMIN D 250 MG/125 U TAB PO SCH (09:07)
[2017-09-27] MEDS: DIGOXIN 0.125 MG TAB PO SCH (09:07)
[2017-09-27] MEDS: ACETAMINOPHEN 325 MG TAB PO PRN (09:16)
--- NOTE | 2017-09-27 10:47 | PD.PSY.CON ---
Provisional Diagnosis Admission Date Sep 22, 2017 at 06:09 [place] I. Unspecified psychosis, major neurocognitive disorder, history of depression [place]. Deferred History of Present Illness Service Psychiatry Consult Requested By Medical team Reason for Consult [place] Primary Care Physician Unknown HPI The patient is 87-year-old woman, , domiciled in a residential facility, [facility], mother of 5 kids, with psychiatric history of depression , dementia, no previous psychiatric hospitalizations, no previous suicide attempts, she is on Lexapro 10 mg for her depression prescribed by PCP, with medical history of osteoarthritis,atrial fibrillation and hypothyroidism who was brought to ER after she fell. she says that she went to bathroom last night when she fell. she denies any prodromal symptoms before the fall and there's no report of syncope. she started to have left hip pain after the fall. she says that she couldn't put the pressure back on the left foot. CT of the left lower extremity with no fracture. The patient was consulted to psychiatry due to increased paranoia, agitation and aggressiveness in the medical floor. Chart was reviewed. Collateral information from her son Silverio Villaseñor, , was obtained. On psychiatric evaluation the patient is calm, cooperative, very pleasant. Patient states that she came to the hospital because she fell, patient reports that "I know that I have been going crazy, I do not have the control of my mind anymore". She reports good mood, she says that she feels very happy, denies pain, denies distress, she denies depressive symptoms, denies anhedonia, denies hopelessness, helplessness, the patient denies suicidal and homicidal ideation, she denies visual and auditory hallucinations. Patient reports that she has been eating with good appetite, also reports good level of energy. The patient does not know the name of this institution, she does not know the city, she is just partially oriented in time. The patient reports that the only reason she has been feeling sad because "my son is part of a Mafia and he is trying to steal form my and he is doing terrible things, I know it". When I tried to ask the patient to elaborate about this accusation, the patient started looking around and states that his son is communicated with the nurses and a staff member here, and "they are doing bad things to me". As per collateral information from the staff in the floor, the patient has been agitated, screaming, making accusations toward the nurses, very paranoid and disorganized. As per son, the patient has history of dementia , depression, but she never been hospitalized in psychiatry. She had periods of disorganized behavior and speech, paranoia in the past, but she has been usually at baseline in the last month in which she can have a very pleasant conversation, recognize everybody, but in the last days "she definitely has been out of it". Review of Systems Constitutional: DENIES: Diaphoretic episodes, Fatigue, Fever, Weight gain, Weight loss, Chills, Dizziness, Change in appetite, Night Sweats Endocrine: DENIES: Abnorml menstrual pattern, Heat/cold intolerance, Polydipsia , Polyuria, Polyphagia Eyes: DENIES: Blurred vision, Diplopia, Eye inflammation, Eye pain, Vision loss , Photosensitivity, Double Vision Ears, nose, mouth, throat: DENIES: Tinnitus, Hearing loss, Vertigo, Nasal discharge, Oral lesions, Throat pain, Hoarseness, Ear Pain, Running Nose, Epistaxis, Sinus Pain, Toothache, Odynophagia Respiratory: DENIES: Apneas, Cough, Snoring, Wheezing, Hemoptysis, Sputum production, Shortness of breath Cardiovascular: DENIES: Chest pain, Palpitations, Syncope, Dyspnea on Exertion , PND, Lower Extremity Edema, Orthopnea, Claudication Gastrointestinal: DENIES: Abdominal pain, Black stools, Bloody stools, Constipation, Diarrhea, Nausea, Vomiting, Difficulty Swallowing, Anorexia Genitourinary: DENIES: Abnormal vaginal bleeding, Dysmenorrhea, Dyspareunia, Sexual dysfunction, Urinary frequency, Urinary incontinence, Urgency, Hematuria , Dysuria, Nocturia, Vaginal discharge Musculoskeletal: DENIES: Joint pain, Muscle aches, Stiffness, Joint Swelling, Back pain, Neck pain Integumentary: DENIES: Abnormal pigmentation, Pruritus, Rash, Nail changes, Breast masses, Breast skin changes, Nipple discharge Hematologic/lymphatic: DENIES: Bruising, Lymphadenopathy Immunologic/allergic: DENIES: Eczema, Urticaria Neurologic: DENIES: Abnormal gait, Headache, Localized weakness, Paresthesias, Seizures, Speech Problems, Tremor, Poor Balance Psychiatric: COMPLAINS OF: Confusion, Delusions Past Family Social History Coded Allergies: codeine (Unverified Allergy, Unknown, 3/11/18) Active Scripts Oxycodone (Oxycodone) 5 Mg Tab, 5 MG PO Q6HR Y for pain, #15 TAB 0 Refills Prov:Ivory Romero MD 09/25/17 Alprazolam (Alprazolam) 0.5 Mg Tab, 0.5 MG PO Q12HR Y for ANXIETY, #10 TAB 0 Refills Prov:Ivory Romero MD 09/25/17 Reported Medications Loperamide (Loperamide) 2 Mg Cap, 2 MG PO DIRECTED Y for DIARRHEA, CAP 0 Refills One capsule after each loose stool. Not to exceed 8 capsules per day. 09/22/17 Cyclobenzaprine (Flexeril) 5 Mg Tab, 5 MG PO TID for Muscle Spasm, #90 TAB 0 Refills 09/22/17 Gabapentin (Gabapentin) 100 Mg Cap, 100 MG PO BID, #60 CAP 0 Refills 09/22/17 Mirtazapine (Mirtazapine) 7.5 Mg Tab, 7.5 MG PO HS for Depression Control, #30 TAB 0 Refills 09/22/17 Escitalopram (Escitalopram) 10 Mg Tab, 10 MG PO DAILY, #30 TAB 0 Refills 09/22/17 Fluticasone-Vilanterol Inh (Breo Ellipta Inh) 100-25 Mcg/Act Inh, 1 PUFF INH DAILY, #1 INHALER 0 Refills Use daily at the same time. 09/22/17 Tramadol (Tramadol) 50 Mg Tab, 50 MG PO HS Y for PAIN, TAB 0 Refills 09/22/17 Calcium Carbonate-Cholecalciferol (Os-Edi Calcium + D3) 500-200 Mg-Unit Tab, 1 TAB PO DAILY for Calcium Supplement, TAB 0 Refills 01/18/17 Hydroxyzine HCl (Hydroxyzine HCl) 25 Mg Tab, 25 MG PO TID Y for ITCHING, TAB 0 Refills 01/18/17 Cholestyramine (Questran) 4 Gm/Pkt Powd, 4 GM PO DAILY Y for DIARRHEA, BOX 0 Refills 1 packet contains 4gm of cholestyramine. 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 for Alzheimer Dementia, #30 CAP 0 Refills 11/13/16 Digoxin (Digoxin) 0.125 Mg Tab, 0.125 MG PO DAILY @ 1200 for Regulate Heart Beat , #30 TAB 0 Refills 11/13/16 Gabapentin (Gabapentin) 300 Mg Cap, 300 MG PO HS, #60 CAP 0 Refills 11/13/16 Ropinirole (Ropinirole) 0.5 Mg Tab, 0.5 MG PO BID, #30 TAB 0 Refills 11/13/16 Levothyroxine (Levothyroxine) 125 Mcg Tab, 88 MCG PO DAILY for Thyroid, #30 TAB 0 Refills 11/13/16 Warfarin (Coumadin) 4 Mg Tab, 6 MG PO DAILY @ 1700 for Prevent Blood Clot, #30 TAB 0 Refills 11/13/16 Fluticasone-Vilanterol Inh (Breo Ellipta Inh) 100-25 Mcg/Act Inh, 1 PUFF INH DAILY, #1 INHALER 0 Refills Use daily at the same time. 11/13/16 Discontinued Reported Medications Emollient (Cetaphil) 1 Cre Cre, 1 APPLIC TOPICAL BID 01/18/17 Cetirizine (Cetirizine) 5 Mg Chew, 10 MG CHEW DAILY for Allergies, TAB 0 Refills 01/18/17 Hydrocortisone Topical (Hydrocortisone Topical) 0.5% Cream, 1 APPLIC TOPICAL BID for Rash/Inflammation, #30 GM 0 Refills Apply to affected area(s) 01/18/17 Guaifenesin (Eql Mucus-ER 12 Hour) 600 Mg Tab, 600 MG PO Q12HR 11/13/16 Megestrol Liq (Megestrol Liq) 40 Mg/Ml Susp, 200 MG PO BID for Improve Appetite , #240 ML 0 Refills 11/13/16 Sucralfate (Sucralfate) 1 Gm Tab, 1 GM PO TIDPC & AT BEDTIME for Duodenal ulcer , #120 TAB 0 Refills on empty stomach 11/13/16 Metoprolol Tartrate (Metoprolol Tartrate) 25 Mg Tab, 25 MG PO DAILY, #30 TAB 0 Refills 11/13/16 Discontinued Scripts Permethrin Topical 5% (Permethrin Topical 5%) 5% Cream, 1 APPLIC TOPICAL ONCE for Scabies, #1 TUBE 0 Refills Prov:Elroy Regalado MD 01/18/17 Current Medications Medications (Trade) Dose Ordered Sig/Sonam Route Start Time Stop Time Status Last Admin Sodium Chloride 1,000 ml @ 100 mls/hr Q10H IV 09/22/17 05:37 Future Hold (NS Flush) 2 ml UNSCH PRN IV FLUSH 09/22/17 05:45 (NS Flush) 2 ml BID IV FLUSH 09/22/17 09:00 09/24/17 23:33 (Zofran Inj) 4 mg Q6H PRN IVP 09/22/17 05:45 (Tylenol) 650 mg Q6H PRN PO 09/22/17 05:45 09/27/17 09:16 (Milk Of Magnesia Liq) 30 ml Q12H PRN PO 09/22/17 05:45 (Senokot) 17.2 mg Q12H PRN PO 09/22/17 05:45 (Dulcolax Supp) 10 mg DAILY PRN RECTAL 09/22/17 05:45 (Lactulose Liq) 30 ml DAILY PRN PO 09/22/17 05:45 09/24/17 23:32 Pharmacy Profile Note 0 ml @ 0 mls/hr UNSCH OTHER 09/22/17 08:30 (Xanax) 0.5 mg Q12HR PRN PO 09/22/17 08:30 (Xanax) 0.5 mg DAILY PO 09/22/17 09:00 Future Hold 09/22/17 10:21 (Flexeril) 5 mg TID PO 09/22/17 09:00 Future Hold 09/23/17 18:24 (Lanoxin) 0.125 mg DAILY PO 09/22/17 09:00 09/27/17 09:07 (Lexapro) 10 mg DAILY PO 09/22/17 09:00 09/27/17 09:07 (Breo Ellipta 100-25 Inh) 1 puff DAILY INH 09/22/17 10:00 09/27/17 09:00 (Synthroid) 88 mcg DAILY@0600 PO 09/22/17 09:30 09/26/17 05:41 (Remeron) 7.5 mg HS PO 09/22/17 21:00 09/26/17 19:57 (Requip) 0.5 mg BID PO 09/22/17 09:00 09/27/17 09:00 (Coumadin) 6 mg DAILY@1600 PO 09/22/17 16:00 Future Hold 09/25/17 15:50 (Oscal-D 250-125) 500 mg DAILY PO 09/22/17 09:30 09/27/17 09:07 Patient Own Medication PT OWN MED: NAMZA... DAILY@1700 PO 09/22/17 17:00 Future Hold (Pill Splitter) 1 ea UNSCH PRN OTHER 09/22/17 09:00 (Neurontin) 200 mg TID PO 09/22/17 13:00 Future Hold 09/24/17 09:28 (Oramorph Sr) 15 mg Q12HR PO 09/23/17 12:45 Future Hold 09/24/17 09:27 (Morphine Inj) 2 mg Q6HR PRN IV PUSH 09/24/17 14:00 (Roxicodone) 5 mg Q4HR PRN PO 09/24/17 16:00 (Pepcid) 20 mg BID PO 09/25/17 21:00 09/27/17 09:07 (SEROquel) 25 mg Q12H PO 09/27/17 06:00 (Haldol Inj) 2 mg Q6H PRN IM 09/26/17 17:00 09/26/17 17:28 Family Psych History No family psychiatric history Social History Patient was born and raised in [facility], she lives in a residential facility [facility], she is , has 5 kids, her highest level of education is high Patient's Strengths (min. 2) Family support Physical Exam No tremors, no EPS, no stiffness, she is hypoactive at this moment Vital Signs Vital Signs Date Time Temp Pulse Resp B/P (MAP) Pulse Ox O2 Delivery O2 Flow Rate FiO2 09/27/17 08:00 96.7 82 16 155/83 (107) 95 I/O 09/27/17 09/27/17 09/28/17 08:00 16:00 00:00 Intake Total 360 ml Balance 360 ml Mental Status Examination Appearance: Appropriate Consciousness: Alert Orientation: Person, Date/Time Motor Activity: Normal gait Speech: Unremarkable Language: Adequate Fund of Knowledge: Adequate Attention and Concentration: Adequate Memory: Impaired Mood: Good Affect: Appropriate Thought Process & Associations: Disorganized Thought Content: Bizarre thinking, Delusional Hallucination Type: None Delusion Type: Bizarre, Paranoid Suicidal Ideation: No Suicidal Plan: No Suicidal Intention: No Homicidal Ideation: No Homicidal Plan: No Homicidal Intention: No Insight: Adequate Judgment: Adequate Assessment & Plan Problem List: (1) Unspecified psychosis ICD Codes: F29 - Unspecified psychosis not due to a substance or known physiological condition Assessment & Plan: On psychiatric evaluation the patient is calm, cooperative and even pleasant. She denies depressive symptoms, denies anxiety, she denies suicidal and homicidal ideation. She denies visual and auditory hallucinations. However, the patient presents with prominent paranoid delusions toward her son and the staff in the hospital. At times become disorganized and tangential. She has been reported agitated, verbally hostile, and difficult to handle in the medical floor. As per son, the patient has been illogical, making false accusations which is not part of her baseline. Patient has evidence of memory problems, especially disorientation, fluctuation of consciousness, attention deficit, recent and immediate recall deficit which seems to be consistent with underlying dementia and potential delirium due to her underlying medical conditions and other factors. start Aricept 5 mg hs, agree with Seroquel 25 mg bid, Lexapro 10 mg and Haldol 2 mg im q6 PRN severe agitation. Order EKG for QTc baseline, if QTc is >460 please hold Antipsychotics. If paranoid behavior/psychosis persist beyond medical clearance patient might benefit of psychiatric admission for stabilization and safety. She could be at good candidate for MedPsych unit. Assessment & Plan Estimated LOS: Nomi Yan MD Sep 27, 2017 10:47
[2017-09-27] MEDS ORDERED: DONEPEZIL HCL 5 MG TAB PO SCH (11:30)
--- NOTE | 2017-09-27 11:39 | HHI.PR ---
Subjective Remarks Patient remains paranoid and uncooperative. Has been evaluated by psych. Objective Vitals Vital Signs Date Time Temp Pulse Resp B/P (MAP) Pulse Ox O2 Delivery O2 Flow Rate FiO2 09/27/17 08:00 96.7 82 16 155/83 (107) 95 09/26/17 19:25 97.1 83 17 149/95 (113) 94 09/26/17 16:02 97.0 80 19 134/76 (95) 97 09/26/17 11:50 97.0 76 18 144/80 (101) 98 I/O 09/26/17 09/26/17 09/26/17 09/27/17 09/27/17 09/27/17 07:00 15:00 23:00 07:00 15:00 23:00 Intake Total 240 ml 200 ml 240 ml 360 ml Balance 240 ml 200 ml 240 ml 360 ml Intake Oral 240 ml 200 ml 240 ml 360 ml # Voids 3 3 4 2 # Bowel Movements 1 3 3 1 Result Diagram: 09/23/17 0525 09/24/17 0500 Objective Remarks GENERAL: Elderly female. Confused and uncooperative. CARDIOVASCULAR: Regular rate and rhythm without murmurs, gallops, or rubs. RESPIRATORY: Clear to auscultation. Breath sounds equal bilaterally. No wheezes , rales, or rhonchi. GASTROINTESTINAL: Abdomen soft, non-tender, nondistended. Normal active bowel sounds MUSCULOSKELETAL: Extremities without clubbing, cyanosis, or edema. NEURO: Oriented to self only. PSYCH: Paranoid. Procedures None A/P Problem List: (1) Left hip pain ICD Code: M25.552 - Pain in left hip Assessment and Plan 87-year-old female admitted and treated for the following: - left hip pain after a fall CT of the left lower extremity with no fracture. continue with pain control- continue on Oxycodone as needed. -elevated LFT's- liver US; Previous cholecystectomy. No choledocholithiasis identified. Bile duct mildly prominent at 8 mm and pancreatic duct mildly prominent at 4 mm diameter. repeat LFT's improved -acute encephalopathy- possibly due to polypharmacy; Now with probable dementia with behavioral disturbance. She reports that staff is trying to harm her and refusing all medications. Morphine, Xanax, Flexeril, and Neurontin were held. Ordered Haldol as needed. Seroquel BID when she can tolerate PO. Appreciate psychiatrist input. Patient clearly does not have medical capacity. She will be [facility] and DC to psych to continue attempt at stabilization. -atrial fibrillation; on Coumadin and digoxin- -osteoarthritis- continue with pain control. -hypothyroidism; continue home meds. Discharge Planning OK to DC to med-psych. Maxi Washington MD Sep 27, 2017 11:39
[2017-09-27 12:00] VITALS: BP 117/70; PULSE 75; RESP 16; TEMP 96.4; O2SAT 95
[2017-09-27 14:32] LABS: HEMATOCRIT 44.3 % (35.0-46.0); HEMOGLOBIN 14.8 GM/DL (11.6-15.3); MEAN CELL VOLUME 87.8 FL (80.0-100.0); MEAN CORPUSCULAR HEMOGLOBIN 29.2 PG (27.0-34.0); MEAN CORPUSCULAR HGB CONC 33.3 % (32.0-36.0); MEAN PLATELET VOLUME 7.1 FL (7.0-11.0); PLATELET COUNT 423 TH/MM3 (150-450); RED BLOOD COUNT 5.05 MIL/MM3 (4.00-5.30); RED CELL DISTRIBUTION WIDTH 14.4 % (11.6-17.2); WHITE BLOOD COUNT 13.5 TH/MM3 (4.0-11.0)
[2017-09-27 14:39] LABS: INTERNATIONAL NORMALIZED RATIO 2.2 RATIO; PROTHROMBIN TIME - PATIENT 22.1 SEC (9.8-11.6)
[2017-09-27 15:01] LABS: ALBUMIN 3.4 GM/DL (3.4-5.0); BICARBONATE 27.8 MEQ/L (21.0-32.0); CALCIUM 8.9 MG/DL (8.5-10.1); CREATININE 1.02 MG/DL (0.50-1.00); DIRECT BILIRUBIN ADULT 0.2 MG/DL (0.0-0.2); INDIRECT BILIRUBIN 0.7 MG/DL (0.0-0.8); TOTAL BILIRUBIN ADULT 0.9 MG/DL (0.2-1.0); TOTAL PROTEIN 7.4 GM/DL (6.4-8.2)
--- NOTE | 2017-09-28 17:07 | EKG ---
Date Performed: 09/27/2017 Time Performed: 13:33:28 PTAGE: 87 years EKG: UNDERLYING RHYTHM IS ATRIAL FIBRILLATION COMPETING WITH VENTRICULAR BASED PACEMAKER RHYTHM DIFFUSED NONSPECIFIC ST WAVE ABNORMALITY IN THE CONDUCTED BEATS Compared to previous tracing, atrial fibrillation now competes with ventricular pacing. ABNORMAL RHYTHM ECG PREVIOUS TRACING : 01/18/2017 20.32 DOCTOR: Silverio Hull Interpretating Date/Time 09/28/2017 17:05:07
== END 2017-09-27 14:16 ==
LOC: NEPC 03:19 → OBSVTOIN 06:09 → NEDA 06:09 → INTOOBSV 06:09 → N06B 06:43 → N06A 09-26 19:17
PROVIDERS: ADMIT Family Medicine; ATTEND Family Medicine
DX: M25.552 Pain in left hip (principal); R79.89 Other specified abnormal findings of blood chemistry; G93.40 Encephalopathy, unspecified; I48.91 Unspecified atrial fibrillation; Z79.01 Long term (current) use of anticoagulants; E03.9 Hypothyroidism, unspecified; W01.0XXA Fall on same level from slipping, tripping and stumbling without subsequent striking against object, initial encounter; F32.9 Major depressive disorder, single episode, unspecified; J43.9 Emphysema, unspecified; K58.9 Irritable bowel syndrome, unspecified; I10 Essential (primary) hypertension; Z87.891 Personal history of nicotine dependence; Z79.899 Other long term (current) drug therapy; S70.02XA Contusion of left hip, initial encounter; M16.12 Unilateral primary osteoarthritis, left hip; R94.31 Abnormal electrocardiogram [ECG] [EKG]; Z95.0 Presence of cardiac pacemaker
CPT/HCPCS: 73502; 73700; 76705; 80048; 80053; 80076; 80307; 81001; 82140; 82550; 85025; 85027; 85610; 85730; 86850; 86900; 86901; 93005; 96361; 96372; 96374; 96376; 97110; 97116; 97163; 97530; 99285; G0378; G8987; G8988; J1630; J2270; J7030

== ENCOUNTER 2017-09-27 14:03 | Inpatient (IN) | payer MEDICARE ==
[~2017-09-27] VITALS: Ht 165.1 cm; Wt 61.1 kg
[~2017-09-27 14:03] MED LIST changes: -CETACRE5 TOPICAL; -CETI5CHW CHEW; +CYCL5TAB PO; +ESCI10TA PO; +GABA100C4 PO; -GUAI1TAB PO; -HYDRO.5%T TOPICAL; +LOPE2CAP PO; -MEGE40SU PO; -METO25TA3 PO; +MIRT1TAB PO; +OXYC-392 PO; -PERM5CRE TOPICAL; -SUCR1TAB PO; +TRAM50TA PO
[2017-09-27] MEDS ORDERED: LORazepam 0.5 MG TAB PO PRN (17:00)
[2017-09-27] MEDS ORDERED: ACETAMINOPHEN 325 MG TAB PO PRN (17:00)
[2017-09-27] MEDS ORDERED: MAGNESIUM HYDROXIDE SUSP 30 ML CUP PO PRN (17:00)
[2017-09-27] MEDS ORDERED: MEMANTINE DONEPEZIL PO SCH (17:00)
[2017-09-27] MEDS ORDERED: LORazepam 2 MG/ML VIAL IM PRN (17:00)
[2017-09-27] MEDS ORDERED: CHOLESTYRAMINE 4 GM PACKET PO PRN (17:00)
[2017-09-27] MEDS ORDERED: ALUMINUM/MAGNESIUM/SIMETH 30 ML CUP PO PRN (17:00)
[2017-09-27] MEDS ORDERED: PILL SPLITTER OTHER PRN (17:45)
[2017-09-27 18:03] VITALS: BP 164/79; PULSE 101; RESP 18; TEMP 97.5; O2SAT 92
[2017-09-27 18:04] VITALS: BP 164/79; PULSE 101; RESP 18; TEMP 97.5; O2SAT 92
[2017-09-27] MEDS: MIRTAZAPINE 15 MG TAB PO SCH (20:23)
[2017-09-27] MEDS: FAMOTIDINE 20 MG TAB PO SCH (20:24)
[2017-09-27] MEDS: QUEtiapine FUMARATE 25 MG TAB PO SCH (20:24)
[2017-09-28] MEDS: LEVOTHYROXINE SODIUM 88 MCG TAB PO SCH (05:20)
[2017-09-28 06:11] VITALS: BP 150/86; PULSE 98; RESP 16; TEMP 97.4; O2SAT 96
[2017-09-28 08:35] LABS: BICARBONATE 26.9 MEQ/L (21.0-32.0); BLOOD UREA NITROGEN 15 MG/DL (7-18); CALCIUM 8.6 MG/DL (8.5-10.1); CHLORIDE 103 MEQ/L (98-107); CHOLESTEROL 177 MG/DL (120-200); CREATININE 0.81 MG/DL (0.50-1.00); GLOMERULAR FILTRATION RATE 67 ML/MIN (>89); GLUCOSE,RANDOM 95 MG/DL (74-106); SODIUM (NA) 141 MEQ/L (136-145); TRIGLYCERIDES 131 MG/DL (42-150)
[2017-09-28 08:44] LABS: CHOLESTEROL/ HDL RATIO 4.19 RATIO; HDL CHOLESTEROL 42.2 MG/DL (40.0-60.0); LDL CHOLESTEROL 109 MG/DL (0-99)
[2017-09-28] MEDS: FLUTICASONE 100 MCG/VILANTEROL 25 MCG INHALER INH SCH (10:01)
[2017-09-28] MEDS: QUEtiapine FUMARATE 25 MG TAB PO SCH (10:03)
[2017-09-28] MEDS: DIGOXIN 0.125 MG TAB PO SCH (10:03)
[2017-09-28] MEDS: FAMOTIDINE 20 MG TAB PO SCH (10:04)
[2017-09-28] MEDS: ESCITALOPRAM OXALATE 10 MG TAB PO SCH (10:05)
[2017-09-28] MEDS: CALCIUM/VITAMIN D 250 MG/125 U TAB PO SCH (10:06)
[2017-09-28 13:43] LABS: HEMOGLOBIN A1C 5.1 % (4.3-6.0)
--- NOTE | 2017-09-28 15:08 | HHI.HP ---
Provisional Diagnosis Admission Date Sep 27, 2017 at 14:35 [place] I. 1. Delirium, multifactorial Rule out some degree of underlying major neurocognitive disorder [place] II. Deferred Certification of Person's Competence To Provide Express and Informed Consent I have personally examined Shakila Villaseñor , a person being served at [facility] on, Sep 28, 2017 15:08. Express and informed consent means consent voluntarily given in writing, by a competent person, after sufficient explanation and disclosure of the subject matter involved to enable the person to make a knowing and willful decision without any element of force, fraud, deceit, duress, or other form of constraint or coercion. This person is 18 years of age or older, is not now known to be incompetent to consent to treatment with a guardian advocate, and does not have a health care surrogate or proxy currently making medical treatment decisions. I have found this person to be one of the following: [] Competent to provide express and informed consent, as defined above, for voluntary admission to this facility and is competent to provide express and informed consent for treatment. He/she has the consistent capacity to make well reasoned, willful, and knowing decisions concerning his or her medical or mental health treatment. The person fully and consistently understands the purpose of the admission for examination/placement and is fully capable of personally exercising all rights assured [place] [x] Incompetent to provide express and informed consent to voluntary admission, and this is incompetent to provide express and informed consent to treatment. The person must be transferred to involuntary status and a petition for a guardian advocate filed with the Circuit Court. [] Refusing to provide express and informed consent to voluntary admission but is competent to provide express and informed consent for treatment. The person must be discharged or transferred to involuntary status. Form shall be completed within 24 hours of a person's arrival at the receiving facility and filed in the clinical record of each person: 1. Admitted on a voluntary basis 2. Permitted to provide express and informed consent to his/her own treatment 3. Allowed to transfer from involuntary to voluntary status 4. Prior to permitting a person to consent to his or her own treatment after having been previously found incompetent to consent to treatment. History of Present Illness Capacity: Lacks Capacity Psych Chief Complaint: Delirium HPI Ms. Villaseñor is an 87-year-old female with no reported previous psychiatric diagnoses who presents in transfer from the medical floor under a Porter act. Patient was seen in consultation by Dr. Tolentino yesterday. From his note: The patient is 87-year-old woman, , domiciled in a residential facility, [facility], mother of 5 kids, with psychiatric history of depression , dementia, no previous psychiatric hospitalizations, no previous suicide attempts, she is on Lexapro 10 mg for her depression prescribed by PCP, with medical history of osteoarthritis,atrial fibrillation and hypothyroidism who was brought to ER after she fell. she says that she went to bathroom last night when she fell. she denies any prodromal symptoms before the fall and there's no report of syncope. she started to have left hip pain after the fall. she says that she couldn't put the pressure back on the left foot. CT of the left lower extremity with no fracture. The patient was consulted to psychiatry due to increased paranoia, agitation and aggressiveness in the medical floor. Chart was reviewed. Collateral information from her son Silverio Villaseñor, , was obtained. On psychiatric evaluation the patient is calm, cooperative, very pleasant. Patient states that she came to the hospital because she fell, patient reports that "I know that I have been going crazy, I do not have the control of my mind anymore". She reports good mood, she says that she feels very happy, denies pain, denies distress, she denies depressive symptoms, denies anhedonia, denies hopelessness, helplessness, the patient denies suicidal and homicidal ideation, she denies visual and auditory hallucinations. Patient reports that she has been eating with good appetite, also reports good level of energy. The patient does not know the name of this institution, she does not know the city, she is just partially oriented in time. The patient reports that the only reason she has been feeling sad because "my son is part of a Mafia and he is trying to steal form my and he is doing terrible things, I know it". When I tried to ask the patient to elaborate about this accusation, the patient started looking around and states that his son is communicated with the nurses and a staff member here, and "they are doing bad things to me". As per collateral information from the staff in the floor, the patient has been agitated, screaming, making accusations toward the nurses, very paranoid and disorganized. As per son, the patient has history of dementia , depression, but she never been hospitalized in psychiatry. She had periods of disorganized behavior and speech, paranoia in the past, but she has been usually at baseline in the last month in which she can have a very pleasant conversation, recognize everybody, but in the last days "she definitely has been out of it". On my examination today, 09/28: Patient seen and examined. Chart reviewed. Case discussed with nursing staff. Per nurse, patient believes she may be and asked about having a baby shower. She also has been seeing chainsaws and malini on the floor. On my exam, patient seems more lucid. She denies any SI/HI. Denies any AVH. She does not report any depressive or hypomanic/manic symptoms. She does not verbalize any delusions of or other delusional material. Although she is somewhat disoriented and inattentive, she is able to speak at length about historical matters, such as a severe automobile accident that one of her daughters was in. Psychiatric interview is somewhat limited by patient's acute confusional state. She has no acute physical complaints. Past psychiatric history: Patient is likely an unreliable historian. She reports that she once saw a psychiatrist 30 years ago. She denies a history of psychiatric admissions or suicide attempts. Family history: The patient denies any family history of mental illness. Chemical dependency history: The patient denies any substance use. Social history: Patient is high school educated. She did not work. She was 2 years ago. She has 6 children, 14 grandchildren and 5 great- grandchildren. Review of Systems ROS Limitations: Poor Historian Except as stated in HPI: all other systems reviewed are Neg Past Family Social History Coded Allergies: orange juice (Verified Allergy, Mild, Rash, 09/28/17) codeine (Unverified Allergy, Unknown, 09/22/17) Past Medical History See electronic medical record Active Scripts Oxycodone (Oxycodone) 5 Mg Tab, 5 MG PO Q6HR Y for pain, #15 TAB 0 Refills Prov:Ivory Romero MD 09/25/17 Alprazolam (Alprazolam) 0.5 Mg Tab, 0.5 MG PO Q12HR Y for ANXIETY, #10 TAB 0 Refills Prov:Ivory Romero MD 09/25/17 Reported Medications Loperamide (Loperamide) 2 Mg Cap, 2 MG PO DIRECTED Y for DIARRHEA, CAP 0 Refills One capsule after each loose stool. Not to exceed 8 capsules per day. 09/22/17 Cyclobenzaprine (Flexeril) 5 Mg Tab, 5 MG PO TID for Muscle Spasm, #90 TAB 0 Refills 09/22/17 Gabapentin (Gabapentin) 100 Mg Cap, 100 MG PO BID, #60 CAP 0 Refills 09/22/17 Mirtazapine (Mirtazapine) 7.5 Mg Tab, 7.5 MG PO HS for Depression Control, #30 TAB 0 Refills 09/22/17 Escitalopram (Escitalopram) 10 Mg Tab, 10 MG PO DAILY, #30 TAB 0 Refills 09/22/17 Fluticasone-Vilanterol Inh (Breo Ellipta Inh) 100-25 Mcg/Act Inh, 1 PUFF INH DAILY, #1 INHALER 0 Refills Use daily at the same time. 09/22/17 Tramadol (Tramadol) 50 Mg Tab, 50 MG PO HS Y for PAIN, TAB 0 Refills 09/22/17 Calcium Carbonate-Cholecalciferol (Os-Edi Calcium + D3) 500-200 Mg-Unit Tab, 1 TAB PO DAILY for Calcium Supplement, TAB 0 Refills 01/18/17 Hydroxyzine HCl (Hydroxyzine HCl) 25 Mg Tab, 25 MG PO TID Y for ITCHING, TAB 0 Refills 01/18/17 Cholestyramine (Questran) 4 Gm/Pkt Powd, 4 GM PO DAILY Y for DIARRHEA, BOX 0 Refills 1 packet contains 4gm of cholestyramine. 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 for Alzheimer Dementia, #30 CAP 0 Refills 11/13/16 Digoxin (Digoxin) 0.125 Mg Tab, 0.125 MG PO DAILY @ 1200 for Regulate Heart Beat , #30 TAB 0 Refills 11/13/16 Gabapentin (Gabapentin) 300 Mg Cap, 300 MG PO HS, #60 CAP 0 Refills 11/13/16 Ropinirole (Ropinirole) 0.5 Mg Tab, 0.5 MG PO BID, #30 TAB 0 Refills 11/13/16 Levothyroxine (Levothyroxine) 125 Mcg Tab, 88 MCG PO DAILY for Thyroid, #30 TAB 0 Refills 11/13/16 Warfarin (Coumadin) 4 Mg Tab, 6 MG PO DAILY @ 1700 for Prevent Blood Clot, #30 TAB 0 Refills 11/13/16 Fluticasone-Vilanterol Inh (Breo Ellipta Inh) 100-25 Mcg/Act Inh, 1 PUFF INH DAILY, #1 INHALER 0 Refills Use daily at the same time. 11/13/16 Discontinued Reported Medications Emollient (Cetaphil) 1 Cre Cre, 1 APPLIC TOPICAL BID 01/18/17 Cetirizine (Cetirizine) 5 Mg Chew, 10 MG CHEW DAILY for Allergies, TAB 0 Refills 01/18/17 Hydrocortisone Topical (Hydrocortisone Topical) 0.5% Cream, 1 APPLIC TOPICAL BID for Rash/Inflammation, #30 GM 0 Refills Apply to affected area(s) 01/18/17 Guaifenesin (Eql Mucus-ER 12 Hour) 600 Mg Tab, 600 MG PO Q12HR 11/13/16 Megestrol Liq (Megestrol Liq) 40 Mg/Ml Susp, 200 MG PO BID for Improve Appetite , #240 ML 0 Refills 11/13/16 Sucralfate (Sucralfate) 1 Gm Tab, 1 GM PO TIDPC & AT BEDTIME for Duodenal ulcer , #120 TAB 0 Refills on empty stomach 11/13/16 Metoprolol Tartrate (Metoprolol Tartrate) 25 Mg Tab, 25 MG PO DAILY, #30 TAB 0 Refills 11/13/16 Discontinued Scripts Permethrin Topical 5% (Permethrin Topical 5%) 5% Cream, 1 APPLIC TOPICAL ONCE for Scabies, #1 TUBE 0 Refills Prov:Elroy Regalado MD 01/18/17 Current Medications Medications (Trade) Dose Ordered Sig/Sonam Route Start Time Stop Time Status Last Admin (Questran 4 Gm Pkt) 4 gm DAILY PRN PO 09/27/17 17:00 (Lanoxin) 0.125 mg DAILY PO 09/28/17 09:00 (Lexapro) 10 mg DAILY PO 09/28/17 09:00 09/28/17 10:05 (Breo Ellipta 100-25 Inh) 1 puff DAILY INH 09/28/17 09:00 09/28/17 10:01 (Synthroid) 88 mcg DAILY@0600 PO 09/28/17 06:00 09/28/17 05:20 (Remeron) 7.5 mg HS PO 09/27/17 21:00 09/27/17 20:23 (Roxicodone) 5 mg Q6HR PRN PO 09/27/17 17:00 (Requip) 0.5 mg BID PO 09/27/17 21:00 09/28/17 10:03 (Coumadin) 6 mg DAILY@1600 PO 09/28/17 16:00 (Oscal-D 250-125) 500 mg DAILY PO 09/28/17 09:00 09/28/17 10:06 (Pepcid) 20 mg BID PO 09/27/17 21:00 09/28/17 10:04 Patient Own Medication PT OWN MED: Memantine-Donepezil (Namzaric) 1 CAP DAILY@1700 PO 09/27/17 17:00 Future Hold (Ativan) 0.5 mg Q12H PRN PO 09/27/17 17:00 (Ativan Inj) 0.5 mg Q12H PRN IM 09/27/17 17:00 (Tylenol) 650 mg Q4H PRN PO 09/27/17 17:00 (Milk Of Magnesia Liq) 30 ml DAILY PRN PO 09/27/17 17:00 (Mag-Al Plus Susp Liq) 30 ml Q6H PRN PO 09/27/17 17:00 (SEROquel) 25 mg BID PO 09/27/17 21:00 09/28/17 10:03 (Pill Splitter) 1 ea UNSCH PRN OTHER 09/27/17 17:45 Patient's Strengths (min. 2) In a monitored setting. Verbally fluent. Physical Exam Physical exam completed by primary team on medical floor. On my examination today, the patient appears to be in no acute physical distress. No motor abnormalities noted. Labs and vitals reviewed: Vital Signs Vital Signs Date Time Temp Pulse Resp B/P (MAP) Pulse Ox O2 Delivery O2 Flow Rate FiO2 09/28/17 06:11 97.4 98 16 150/86 (107) 96 I/O 09/28/17 09/28/17 09/29/17 08:00 16:00 00:00 Intake Total 240 ml Balance 240 ml Lab Results Test 09/28/17 07:40 Blood Urea Nitrogen 15 MG/DL Creatinine 0.81 MG/DL Random Glucose 95 MG/DL Calcium Level 8.6 MG/DL Sodium Level 141 MEQ/L Potassium Level 3.1 MEQ/L Chloride Level 103 MEQ/L Carbon Dioxide Level 26.9 MEQ/L Anion Gap 11 MEQ/L Estimat Glomerular Filtration Rate 67 ML/MIN Hemoglobin A1c 5.1 % Triglycerides Level 131 MG/DL Cholesterol Level 177 MG/DL LDL Cholesterol 109 MG/DL HDL Cholesterol 42.2 MG/DL Cholesterol/HDL Ratio 4.19 RATIO Thyroid Stimulating Hormone 3rd Gen 7.080 uIU/ML Labs reviewed. EKG Afib with QTc 386ms. Mental Status Examination Appearance: Disheveled Consciousness: Other (sleeping but easily awakened) Orientation: Person, Date/Time ( but gives the year as 1779) Motor Activity: Other (no motor abnormalities noted) Speech: Unremarkable Language: Other (rambling) Fund of Knowledge: Adequate Attention and Concentration: Easily Distracted Memory: Impaired Mood: Appropriate Affect: Appropriate Thought Process & Associations: Tangential Thought Content: Bizarre thinking Hallucination Type: Other (None presently but see RN report) Delusion Type: None Suicidal Ideation: No Suicidal Plan: No Suicidal Intention: No Homicidal Ideation: No Homicidal Plan: No Homicidal Intention: No Insight: Poor Judgment: Poor Mental Status Exam Remarks Registration 3 out of 3 and recall 0 out of 3. Unable to perform focus/ concentration testing. Gives the current president but unable to name any previous presidents. Assessment & Plan Problem List: (1) Delirium ICD Codes: R41.0 - Disorientation, unspecified Assessment & Plan 87-year-old female with psychiatric history as detailed above presently admitted to the medical psychiatric unit under a Porter act. Patient seems to be experiencing cognitive dysfunction of relatively acute onset and fluctuating course. Current impairments in orientation and focus/concentration, delirium seems likely although underlying neurocognitive disorder cannot be ruled out. Delirium may be the result of presenting medical complaints including fall and hip pain or may be due to to some as yet undetected cause. I note, for example , that even though the patient took a fall, head imaging was not obtained and patient is on an anticoagulant. I will plan to retain the patient on the medical psychiatric unit for further workup of her confusional state. Admit inpatient. Involuntary status. I have completed first opinion. Consult for second opinion. Request healthcare surrogate and guardian advocate. Until we have a better sense of the etiology of patient's confusional state, I will place her psychotropics on hold in case these are contributing to her confusion. I will check STAT head CT. Check EEG. Check ESR, ELA, B12, ammonia , RPR, HIV. TSH elevated, check FT4. Med list reviewed: replace Pepcid with PPI. We will in general plan to avoid any antihistamines, anticholinergics, opiates or benzodiazepines as all can worsen mental status. Consult to the hospitalist. To consider neurology consultation. PT/OT/falls precautions. Vitals every shift. Counselor to see. Disposition planning. Estimated length of stay: 5-7 days. Discharge Planning Pending stabilization. Request HC Surrog/Guard Advoc?: Yes Jermaine Barton MD Sep 28, 2017 15:08
[2017-09-28] MEDS: WARFARIN SOD 6 MG TAB PO SCH (15:38)
[2017-09-28] MEDS ORDERED: POTASSIUM CHLORIDE 20 MEQ CONTROLLED RELEASE TAB PO ONE (15:45)
[2017-09-28 16:40] LABS: FREE T4 0.98 NG/DL (0.76-1.46)
[2017-09-28 16:47] VITALS: BP 143/63; PULSE 85; RESP 16; TEMP 97.9; O2SAT 98
--- NOTE | 2017-09-28 17:07 | EKG ---
Date Performed: 09/28/2017 Time Performed: 11:09:46 PTAGE: 87 years EKG: ATRIAL FIBRILLATION WITH CONTROLLED VENTRICULAR RESPONSE COMPETING WITH VENTRICULAR BASED P ACEMAKER DIFFUSE NONSPECIFIC ST-T WAVE CHANGE Since previous tracing, no significant change noted ABN ORMAL ECG PREVIOUS TRACING : 09/27/2017 13.33 DOCTOR: Silverio Hull Interpretating Date/Time 09/28/2017 17:05:55
--- NOTE | 2017-09-28 18:04 | RADRPT ---
EXAM DATE/TIME: 09/28/2017 17:30 [facility] COMPARISON: CT HIP LEFT W/O CONTRAST, September 22, 2017, 5:40. INDICATIONS : Altered mental status due to fall. RADIATION DOSE: 41.42 CTDIvol (mGy) MEDICAL HISTORY : Cardiovascular disease. Hypertension. SURGICAL HISTORY : Pacemaker. Cholecystectomy. ENCOUNTER: Initial ACUITY: 1 day PAIN SCALE: 3/10 LOCATION: Bilateral cranial TECHNIQUE: Multiple contiguous axial images were obtained of the head. Using automated exposure control and adj ustment of the mA and/or kV according to patient size, radiation dose was kept as low as reasonably a chievable to obtain optimal diagnostic quality images. DICOM format image data is available electro nically for review and comparison. FINDINGS: CEREBRUM: The ventricles are normal for age. No evidence of midline shift, mass lesion, hemorrhage or acute in farction. No extra-axial fluid collections are seen. POSTERIOR FOSSA: The cerebellum and brainstem are intact. The 4th ventricle is midline. The cerebellopontine angle i s unremarkable. EXTRACRANIAL: The visualized portion of the orbits is intact. SKULL: The calvaria is intact. No evidence of skull fracture. CONCLUSION: 1. No acute intracranial abnormality identified. Mateus Rose MD on September 28, 2017 at 18:01 Board Certified Radiologist. This report was verified electronically.
--- NOTE | 2017-09-28 19:04 | PD.CONS ---
HPI Service [facility] Consult Requested By Psychiatry Reason for Consult Medical management Primary Care Physician Unknown Diagnoses: Past Family Social History Allergies: Coded Allergies: orange juice (Verified Allergy, Mild, Rash, 09/28/17) codeine (Unverified Allergy, Unknown, 09/22/17) Past Medical History atrial fibrillation/ osteoarthritis/hypothyroidism. Past Surgical History cholecystectomy/ hysterectomy. Reported Medications See EMR Family History not relevant to this presentation. Social History quit smoking years ago. doesn't drink. Physical Exam Vital Signs Vital Signs Date Time Temp Pulse Resp B/P (MAP) Pulse Ox O2 Delivery O2 Flow Rate FiO2 09/28/17 16:47 97.9 85 16 143/63 (89) 98 09/28/17 06:11 97.4 98 16 150/86 (107) 96 Physical Exam GENERAL: This is a well-nourished, well-developed patient, in no apparent distress. SKIN: No rashes, ecchymoses or lesions. Cool and dry. HEAD: Atraumatic. Normocephalic. No temporal or scalp tenderness. EYES: Pupils equal round and reactive. Extraocular motions intact. No scleral icterus. No injection or drainage. ENT: Nose without bleeding, purulent drainage or septal hematoma. Throat without erythema, tonsillar hypertrophy or exudate. Uvula midline. Airway patent. NECK: Trachea midline. No JVD or lymphadenopathy. Supple, nontender, no meningeal signs. CARDIOVASCULAR: Regular rate and rhythm without murmurs, gallops, or rubs. RESPIRATORY: Clear to auscultation. Breath sounds equal bilaterally. No wheezes , rales, or rhonchi. GASTROINTESTINAL: Abdomen soft, non-tender, nondistended. No hepato-splenomegaly , or palpable masses. No guarding. MUSCULOSKELETAL: Extremities without clubbing, cyanosis, or edema. No joint tenderness, effusion, or edema noted. No calf tenderness. Negative Homans sign bilaterally. NEUROLOGICAL: Awake and alert. Cranial nerves II through XII intact. Motor and sensory grossly within normal limits. Five out of 5 muscle strength in all muscle groups. Normal speech. Laboratory Laboratory Tests Test 09/28/17 07:40 09/28/17 15:52 Blood Urea Nitrogen 15 Creatinine 0.81 Random Glucose 95 Calcium Level 8.6 Sodium Level 141 Potassium Level 3.1 Chloride Level 103 Carbon Dioxide Level 26.9 Anion Gap 11 Estimat Glomerular Filtration Rate 67 Hemoglobin A1c 5.1 Triglycerides Level 131 Cholesterol Level 177 LDL Cholesterol 109 HDL Cholesterol 42.2 Cholesterol/HDL Ratio 4.19 Vitamin B12 Level 381 Free Thyroxine 0.98 Thyroid Stimulating Hormone 3rd Gen 7.080 Erythrocyte Sedimentation Rate 16 Ammonia 16 HIV (1&2) Ab and P24 Ag, 4th Gener NONREACTIVE Result Diagram: 09/28/17 0740 Imaging Last Impressions Head CT 09/28/17 0000 Signed Impressions: Service Date/Time: Thursday, September 28, 2017 17:30 - CONCLUSION: 1. No acute intracranial abnormality identified. Mateus Rose MD Assessment and Plan Assessment and Plan 87 years old female with - Left hip pain after a fall CT of the left lower extremity with no fracture. continue Tylenol as needed. -Elevated LFT's- liver US; Previous cholecystectomy. No choledocholithiasis identified. Bile duct mildly prominent at 8 mm and pancreatic duct mildly prominent at 4 mm diameter. repeat LFT's improved -Acute encephalopathy- possibly due to polypharmacy; Now with probable dementia with behavioral disturbance. Head CT without any acute intracranial abnormalities Appreciate psychiatrist input. -Atrial fibrillation; on Coumadin and digoxin- -Osteoarthritis- continue with pain control. -Hypokalemia: Give K 60meq x 1 -Hypothyroidism: Continue with Synthroid Code Status Full code Marlo Ojeda MD Sep 28, 2017 19:04
[2017-09-28] MEDS ORDERED: POTASSIUM CHLORIDE 10 MEQ CONTROLLED RELEASE TAB PO ONE (19:15)
[2017-09-29 01:40] VITALS: BP 142/75; PULSE 90; RESP 16; O2SAT 96
[2017-09-29 01:55] VITALS: BP 143/80; PULSE 86; RESP 16; O2SAT 96
[2017-09-29 02:00] VITALS: O2SAT 96
[2017-09-29] MEDS ORDERED: LORazepam 2 MG/ML VIAL IV PUSH ONE (02:15)
[2017-09-29 02:24] LABS: INTERNATIONAL NORMALIZED RATIO 1.4 RATIO; PROTHROMBIN TIME - PATIENT 14.3 SEC (9.8-11.6)
--- NOTE | 2017-09-29 02:41 | RADRPT ---
EXAM DATE/TIME: 09/29/2017 02:28 [facility] COMPARISON: CT BRAIN W/O CONTRAST, September 28, 2017, 17:30. INDICATIONS : Altered mental status. RADIATION DOSE: 33.12 CTDIvol (mGy) MEDICAL HISTORY : Irritiable bowel syndrome. Hypertension. Chronic obstructive pulmonary disease.Cardiovascular disease SURGICAL HISTORY : Pacemaker. Cholecystectomy.Hysterectomy. ENCOUNTER: Initial ACUITY: 1 day PAIN SCALE: Non-responsive LOCATION: cranial TECHNIQUE: Multiple contiguous axial images were obtained of the head. Using automated exposure control and adj ustment of the mA and/or kV according to patient size, radiation dose was kept as low as reasonably a chievable to obtain optimal diagnostic quality images. DICOM format image data is available electro nically for review and comparison. FINDINGS: CEREBRUM: The ventricles are normal for age. Periventricular and right deep white matter tracts there is a dim inished attenuation are characteristic of small vessel ischemic demyelination No evidence of midline shift, mass lesion, hemorrhage or acute infarction. No extra-axial fluid collections are seen. POSTERIOR FOSSA: The cerebellum and brainstem are intact. The 4th ventricle is midline. The cerebellopontine angle i s unremarkable. EXTRACRANIAL: The visualized portion of the orbits is intact. SKULL: The calvaria is intact. No evidence of skull fracture. CONCLUSION: 1. Periventricular and deep white matter tracts small vessel ischemic demyelination. 2. Nothing acute. Luís John MD on September 29, 2017 at 2:37 Board Certified Radiologist. This report was verified electronically.
--- NOTE | 2017-09-29 02:46 | RADRPT ---
EXAM DATE/TIME: 09/29/2017 02:32 [facility] COMPARISON: No previous studies available for comparison. INDICATIONS : Stroke Alert. MEDICAL HISTORY : Cardiovascular disease. Hypertension SURGICAL HISTORY : Pacemaker. Cholecystectomy. ENCOUNTER: Subsequent ACUITY: 2 days PAIN SCORE: Non-responsive. LOCATION: Bilateral chest FINDINGS: A single view of the chest demonstrates the lungs to be symmetrically aerated and predominately inter stitial infiltrate in the right apex. Minimal atelectasis/scarring above the hemidiaphragms. Left sub clavian bipolar pacer is radiographically intact. Heart size is normal. Right shoulder is high riding characteristic of a chronic rotator cuff injury. CONCLUSION: 1. Faint interstitial infiltrate in the right apex. Mild atelectatic changes/scarring above the both hemidiaphragms. 2. Right shoulder is "high riding" characteristic of a chronic rotator cuff injury. Luís John MD on September 29, 2017 at 2:43 Board Certified Radiologist. This report was verified electronically.
--- NOTE | 2017-09-29 02:57 | HHI.FPPN ---
Addendum to progress note ADDENDUM Additional information [facility] Note Residents responded to [facility] called due to an acute change in mental status. Staff stated the patient previously was alert and completely oriented prior to onset of her AMS. Patient is nonverbal throughout examination but noted to make very faint incomprehensible sounds when asked questions. She is able to follow simple one-step commands to some degree including attempting to open her eyes and moving the distal part of her fingers. BP 130/79 Pulse 95bpm RR ~16, non-labored POx 95% on RA 97.9, stafff reports patient has remained afebrile GENERAL: Lying still in bed with eyes and mouth open, nonverbal, appearing in no acute distress, no movements of extremities or other spontaneous movements NEURO: Awake. Nonverbal. Pupils ~4mm, equal and round, reactive to light bilaterally. Patient able to very weakly grasp with right hand on command. Able to move some of her right toes. SKIN: Warm and dry. HEAD: Normocephalic. Atraumatic. EYES: PERRL. No extraocular movements noted. No scleral icterus. No injection or drainage. ENT: No nasal drainage. Dry mucous membranes. No evidence of tongue bites. NECK: Supple, trachea midline. No JVD or lymphadenopathy. CARDIOVASCULAR: Regular rate, irregular rhythm without murmurs, rubs, or gallops. Peripheral pulses 2+. RESPIRATORY: Breath sounds clear to auscultation and equal bilaterally, without wheezes, rales, or rhonchi. No accessory muscle use. GASTROINTESTINAL: Abdomen soft, appearing to be nontender, nondistended. No organomegaly or masses appreciated. No rebound tenderness. MUSCULOSKELETAL: No lower extremity edema. A/P: The patient was evaluated for a [facility] called for acute alteration in mental status. Patient has a history of a-fib, hypothyroidism, elevated LFTs, depression, dementia, and OA who was recently admitted on 09/22 following a fall. Psychiatry was consulted on 09/27 due to the patient having paranoid delusions and subsequently admitted to the med/psych unit. DDX of AMS includes acute CVA, seizure with post-ictal state, metabolic encephalopathy, hyperammonemia, ACS, medication adverse effect - Bedside glucose of 102 - Patient given lorazepam 2mg IV x1 without significant change in mental status - Placed orders for stat noncontrast head CT followed by MRI brain if negative - Will obtain stat cbc, cmp, coag studies, ammonia, troponin - EEG ordered - Consult interior design project manager, appreciate recommendations - Will discharge patient from med/psych unit for re-admission to an ICU bed sdw Tino Sanchez MD Sep 29, 2017 02:57
[2017-09-29 03:34] LABS: AUTOMATED NEUTROPHIL # 10.3 TH/MM3 (1.8-7.7); BASOPHIL # 0.2 TH/MM3 (0-0.2); BASOPHIL % 1.2 % (0.0-2.0); EOSINOPHIL # 0.2 TH/MM3 (0-0.4); EOSINOPHIL % 1.2 % (0.0-4.0); HEMATOCRIT 40.2 % (35.0-46.0); HEMOGLOBIN 13.6 GM/DL (11.6-15.3); LYMPH % 12.6 % (9.0-44.0); LYMPHOCYTE # 1.7 TH/MM3 (1.0-4.8); MEAN CELL VOLUME 86.5 FL (80.0-100.0); MEAN CORPUSCULAR HEMOGLOBIN 29.3 PG (27.0-34.0); MEAN CORPUSCULAR HGB CONC 33.9 % (32.0-36.0); MEAN PLATELET VOLUME 6.7 FL (7.0-11.0); MONO % 8.1 % (0.0-8.0); MONOCYTE # 1.1 TH/MM3 (0-0.9); NEUT % 76.9 % (16.0-70.0); PLATELET COUNT 395 TH/MM3 (150-450); RED BLOOD COUNT 4.65 MIL/MM3 (4.00-5.30); RED CELL DISTRIBUTION WIDTH 14.4 % (11.6-17.2); WHITE BLOOD COUNT 13.4 TH/MM3 (4.0-11.0)
[2017-09-29 03:43] LABS: INTERNATIONAL NORMALIZED RATIO 1.4 RATIO
[2017-09-29 03:48] LABS: ALBUMIN 3.3 GM/DL (3.4-5.0); ALT (GPT) 43 U/L (10-53); AST (GOT) 20 U/L (15-37); BICARBONATE 27.1 MEQ/L (21.0-32.0); BLOOD UREA NITROGEN 17 MG/DL (7-18); CALCIUM 8.4 MG/DL (8.5-10.1); CHLORIDE 107 MEQ/L (98-107); CREATININE 0.86 MG/DL (0.50-1.00); GLOMERULAR FILTRATION RATE 62 ML/MIN (>89); GLUCOSE,RANDOM 108 MG/DL (74-106); MAGNESIUM 1.9 MG/DL (1.5-2.5); SODIUM (NA) 142 MEQ/L (136-145)
[2017-09-29 03:53] LABS: ALKALINE PHOSPHATASE 120 U/L (45-117); TOTAL PROTEIN 6.8 GM/DL (6.4-8.2); TROPONIN I LESS THAN 0.02 NG/ML (0.02-0.05)
--- NOTE | 2017-09-29 03:55 | PD.CONS ---
HPI Service Critical Care Medicine Consult Requested By Primary Care Physician Unknown History of Present Illness 87-year-old female, intermediate resident admitted to psych unit because of altered mental status and cognitive decline. Early in the morning today the critical care medicine was consulted due to questionable partial seizure and post ictal condition after the rapid response was called. Patient has received 2 mg of Ativan and after my arrival patient is very somnolent however arousable following simple commands. She is maintaining her airways, doesn't require intubation and is hemodynamically stable. Review of Systems ROS Unable to obtain patient is altered Past Family Social History Allergies: Coded Allergies: orange juice (Verified Allergy, Mild, Rash, 09/28/17) codeine (Unverified Allergy, Unknown, 09/22/17) Past Medical History atrial fibrillation/ osteoarthritis/hypothyroidism. Past Surgical History cholecystectomy/ hysterectomy. Reported Medications Reported Meds & Active Scripts Active Oxycodone (Oxycodone HCl) 5 Mg Tab 5 Mg PO Q6HR PRN Alprazolam 0.5 Mg Tab 0.5 Mg PO Q12HR PRN Reported Loperamide (Loperamide HCl) 2 Mg Cap 2 Mg PO DIRECTED PRN One capsule after each loose stool. Not to exceed 8 capsules per day. Flexeril (Cyclobenzaprine HCl) 5 Mg Tab 5 Mg PO TID Gabapentin 100 Mg Cap 100 Mg PO BID Mirtazapine 7.5 Mg Tab 7.5 Mg PO HS Escitalopram (Escitalopram Oxalate) 10 Mg Tab 10 Mg PO DAILY Breo Ellipta Inh (Fluticasone/Vilanterol) 100-25 Mcg/Act Inh 1 Puff INH DAILY Use daily at the same time. Tramadol (Tramadol HCl) 50 Mg Tab 50 Mg PO HS PRN Os-Edi Calcium + D3 (Calcium Carbonate-Cholecalciferol) 500-200 Mg-Unit Tab 1 Tab PO DAILY Hydroxyzine HCl 25 Mg Tab 25 Mg PO TID PRN Questran (Cholestyramine) 4 Gm/Pkt Powd 4 Gm PO DAILY PRN 1 packet contains 4gm of cholestyramine. Famotidine 40 Mg Tab 20 Mg PO BID Xanax (Alprazolam) 0.5 Mg Tab 0.5 Mg PO DAILY Namzaric (Memantine-Donepezil) 28-10 Mg Cap 1 Cap PO DAILY @ 1700 Digoxin 0.125 Mg Tab 0.125 Mg PO DAILY @ 1200 Gabapentin 300 Mg Cap 300 Mg PO HS Ropinirole 0.5 Mg Tab 0.5 Mg PO BID Levothyroxine (Levothyroxine Sodium) 125 Mcg Tab 88 Mcg PO DAILY Coumadin (Warfarin) 4 Mg Tab 6 Mg PO DAILY @ 1700 Breo Ellipta Inh (Fluticasone/Vilanterol) 100-25 Mcg/Act Inh 1 Puff INH DAILY Use daily at the same time. Active Ordered Medications Current Medications Medications (Trade) Dose Ordered Sig/Sonam Route PRN Reason Start Time Stop Time Status Last Admin Dose Admin Cholestyramine Resin (Questran 4 Gm Pkt) 4 gm DAILY PRN PO DIARRHEA 09/27/17 17:00 Digoxin (Lanoxin) 0.125 mg DAILY PO 09/28/17 09:00 Escitalopram Oxalate (Lexapro) 10 mg DAILY PO 09/28/17 09:00 Future Hold 09/28/17 10:05 Fluticasone/ Vilanterol (Breo Ellipta 100-25 Inh) 1 puff DAILY INH 09/28/17 09:00 09/28/17 10:01 Levothyroxine Sodium (Synthroid) 88 mcg DAILY@0600 PO 09/28/17 06:00 09/28/17 05:20 Mirtazapine (Remeron) 7.5 mg HS PO 09/27/17 21:00 Future Hold 09/27/17 20:23 Oxycodone HCl (Roxicodone) 5 mg Q6HR PRN PO pain 09/27/17 17:00 Future Hold Ropinirole HCl (Requip) 0.5 mg BID PO 09/27/17 21:00 09/28/17 20:51 Warfarin Sodium (Coumadin) 6 mg DAILY@1600 PO 09/28/17 16:00 Calcium/Vitamin D (Oscal-D 250-125) 500 mg DAILY PO 09/28/17 09:00 09/28/17 10:06 Patient Own Medication PT OWN MED: Memantine-Donepezil (Namzaric) 1 CAP DAILY@1700 PO 09/27/17 17:00 Future Hold Acetaminophen (Tylenol) 650 mg Q4H PRN PO Pain 1-5 or Temp >101F 09/27/17 17:00 Magnesium Hydroxide (Milk Of Magnesia Liq) 30 ml DAILY PRN PO CONSTIPATION 09/27/17 17:00 Al Hydrox/Mg Hydrox/Simethicone (Mag-Al Plus Susp Liq) 30 ml Q6H PRN PO DYSPEPSIA 09/27/17 17:00 Quetiapine Fumarate (SEROquel) 25 mg BID PO 09/27/17 21:00 Future Hold 09/28/17 10:03 Miscellaneous (Pill Splitter) 1 ea UNSCH PRN OTHER SEE LABEL COMMENTS 09/27/17 17:45 Pantoprazole Sodium (Protonix) 40 mg DAILY PO 09/29/17 09:00 Family History No family history significant of early coronary artery disease or malignancy Social History quit smoking years ago. doesn't drink. Physical Exam Vital Signs Vital Signs Date Time Temp Pulse Resp B/P (MAP) Pulse Ox O2 Delivery O2 Flow Rate FiO2 09/29/17 02:00 96 4.00 09/29/17 02:00 96 Nasal Cannula 4.00 09/28/17 16:47 97.9 85 16 143/63 (89) 98 09/28/17 06:11 97.4 98 16 150/86 (107) 96 Physical Exam GENERAL: Elderly female in no acute distress, sleeping, arousable to painful stimuli SKIN: Warm and dry. HEAD: Normocephalic. EYES: No scleral icterus. No injection or drainage. NECK: Supple, trachea midline. No JVD or lymphadenopathy. CARDIOVASCULAR: Regular rate and rhythm without murmurs, gallops, or rubs. RESPIRATORY: Breath sounds equal bilaterally. No accessory muscle use. GASTROINTESTINAL: Abdomen soft, non-tender, nondistended. MUSCULOSKELETAL: No cyanosis, or edema. BACK: Nontender without obvious deformity. NEURO EXAM: GCS: M 6 V2 E1 Mental Status: The patient is lethargic, she just received 2 mg of Ativan for questionable seizure activity. Laboratory Laboratory Tests Test 09/28/17 07:40 09/28/17 15:52 09/29/17 01:30 09/29/17 03:17 Blood Urea Nitrogen 15 17 Creatinine 0.81 0.86 Random Glucose 95 108 Calcium Level 8.6 8.4 Sodium Level 141 142 Potassium Level 3.1 3.8 Chloride Level 103 107 Carbon Dioxide Level 26.9 27.1 Anion Gap 11 8 Estimat Glomerular Filtration Rate 67 62 Hemoglobin A1c 5.1 Triglycerides Level 131 Cholesterol Level 177 LDL Cholesterol 109 HDL Cholesterol 42.2 Cholesterol/HDL Ratio 4.19 Vitamin B12 Level 381 Free Thyroxine 0.98 Thyroid Stimulating Hormone 3rd Gen 7.080 Erythrocyte Sedimentation Rate 16 Ammonia 16 17 HIV (1&2) Ab and P24 Ag, 4th Gener NONREACTIVE Prothrombin Time 14.3 14.0 Prothromb Time International Ratio 1.4 1.4 White Blood Count 13.4 Red Blood Count 4.65 Hemoglobin 13.6 Hematocrit 40.2 Mean Corpuscular Volume 86.5 Mean Corpuscular Hemoglobin 29.3 Mean Corpuscular Hemoglobin Concent 33.9 Red Cell Distribution Width 14.4 Platelet Count 395 Mean Platelet Volume 6.7 Neutrophils (%) (Auto) 76.9 Lymphocytes (%) (Auto) 12.6 Monocytes (%) (Auto) 8.1 Eosinophils (%) (Auto) 1.2 Basophils (%) (Auto) 1.2 Neutrophils # (Auto) 10.3 Lymphocytes # (Auto) 1.7 Monocytes # (Auto) 1.1 Eosinophils # (Auto) 0.2 Basophils # (Auto) 0.2 CBC Comment DIFF FINAL Differential Comment Total Protein 6.8 Albumin 3.3 Magnesium Level 1.9 Alkaline Phosphatase 120 Aspartate Amino Transf (AST/SGOT) 20 Alanine Aminotransferase (ALT/SGPT) 43 Total Bilirubin 1.0 Troponin I LESS THAN 0.02 Test 09/29/17 03:34 Blood Gas Puncture Site RT RADIAL Blood Gas Patient Temperature 98.6 Blood Gas HCO3 24 Blood Gas Base Excess 0.3 Blood Gas Oxygen Saturation 94 Arterial Blood pH 7.41 Arterial Blood Partial Pressure CO2 39 Arterial Blood Partial Pressure O2 100 Arterial Blood Oxygen Content 18.4 Arterial Blood Carboxyhemoglobin 1.0 Arterial Blood Methemoglobin 1.5 Blood Gas Hemoglobin 13.8 Oxygen Delivery Device NASAL CANNULA Blood Gas Liter Flow 3.5 Result Diagram: 09/29/1731609/29/17316 Septic Shock Reassessment Septic shock perfusion: reassessment completed Assessment and Plan Assessment and Plan 87 years old female with altered mental status and cognitive function decline. Altered mental status - Acute encephalopathy - possibly due to polypharmacy - Underlying baseline dementia with behavioral disturbance. - Head CT without any acute intracranial abnormalities Partial seizure - Not weakness - No seizure activity after 2 mg of Ativan Left hip pain - after a fall - CT of the left lower extremity with no fracture. - continue Tylenol as needed. Transaminitis - Ammonia level within normal limits - Status post cholecystectomy - Ultrasound of the liver No choledocholithiasis identified. Bile duct mildly prominent at 8 mm and pancreatic duct mildly prominent at 4 mm diameter. - LFT's improving Atrial fibrillation - Resume Coumadin - Rate controlled with digoxin Hypothyroidism - Continue with Synthroid Patient is comfortable on nasal cannula. She does not require intubation. She is able to protect her airways. There is no need to transfer patient to critical care unit. The patient is medically optimized, hemodynamically stable , not requiring any vasopressors. Critical care medicine will sign off. Please reconsult us if needed. Thank you very much for allowing us to participate in care of this pleasant lady. Level II Hill Donovan MD Sep 29, 2017 3:55 am
[2017-09-29] MEDS: LEVOTHYROXINE SODIUM 88 MCG TAB PO SCH (05:51)
[2017-09-29 06:36] VITALS: BP 155/86; PULSE 83; RESP 16; TEMP 97.7; O2SAT 97
[2017-09-29] MEDS: DIGOXIN 0.125 MG TAB PO SCH (09:43)
[2017-09-29] MEDS: PANTOPRAZOLE SOD 40 MG DELAYED RELEASE TAB PO SCH (09:43)
[2017-09-29] MEDS: CALCIUM/VITAMIN D 250 MG/125 U TAB PO SCH (09:43)
[2017-09-29] MEDS: FLUTICASONE 100 MCG/VILANTEROL 25 MCG INHALER INH SCH (09:50)
--- NOTE | 2017-09-29 14:00 | HHI.PR ---
Subjective Remarks Not able to get any history from the patient due to her advanced dementia and current mental status Discussed with RN Events of last night noted Seen by critical care but they decided that patient could stay on the floor that she is on Had a [facility]ICAT. But again critical-care did not want to take her Patient has had a EEG today Objective Vitals Vital Signs Date Time Temp Pulse Resp B/P (MAP) Pulse Ox O2 Delivery O2 Flow Rate FiO2 09/29/17 06:36 97.7 83 16 155/86 (109) 97 09/29/17 02:00 96 4.00 09/29/17 02:00 96 Nasal Cannula 4.00 09/29/17 01:55 86 16 143/80 (101) 96 09/29/17 01:40 90 16 142/75 (97) 96 09/28/17 16:47 97.9 85 16 143/63 (89) 98 I/O 09/28/17 09/28/17 09/28/17 09/29/17 09/29/17 09/29/17 07:00 15:00 23:00 07:00 15:00 23:00 Intake Total 240 ml 360 ml Balance 240 ml 360 ml Intake Oral 240 ml 360 ml Result Diagram: 09/29/177 09/29/177 Other Results Laboratory Tests Test 09/28/17 07:40 09/28/17 15:52 09/29/17 01:30 09/29/17 03:17 Blood Urea Nitrogen 15 MG/DL 17 MG/DL Creatinine 0.81 MG/DL 0.86 MG/DL Random Glucose 95 MG/DL 108 MG/DL Calcium Level 8.6 MG/DL 8.4 MG/DL Sodium Level 141 MEQ/L 142 MEQ/L Potassium Level 3.1 MEQ/L 3.8 MEQ/L Chloride Level 103 MEQ/L 107 MEQ/L Carbon Dioxide Level 26.9 MEQ/L 27.1 MEQ/L Anion Gap 11 MEQ/L 8 MEQ/L Estimat Glomerular Filtration Rate 67 ML/MIN 62 ML/MIN Hemoglobin A1c 5.1 % Triglycerides Level 131 MG/DL Cholesterol Level 177 MG/DL LDL Cholesterol 109 MG/DL HDL Cholesterol 42.2 MG/DL Cholesterol/HDL Ratio 4.19 RATIO Vitamin B12 Level 381 PG/ML Free Thyroxine 0.98 NG/DL Thyroid Stimulating Hormone 3rd Gen 7.080 uIU/ML Erythrocyte Sedimentation Rate 16 mm/hr Ammonia 16 MCMOL/L 17 MCMOL/L HIV (1&2) Ab and P24 Ag, 4th Gener NONREACTIVE Prothrombin Time 14.3 SEC 14.0 SEC Prothromb Time International Ratio 1.4 RATIO 1.4 RATIO White Blood Count 13.4 TH/MM3 Red Blood Count 4.65 MIL/MM3 Hemoglobin 13.6 GM/DL Hematocrit 40.2 % Mean Corpuscular Volume 86.5 FL Mean Corpuscular Hemoglobin 29.3 PG Mean Corpuscular Hemoglobin Concent 33.9 % Red Cell Distribution Width 14.4 % Platelet Count 395 TH/MM3 Mean Platelet Volume 6.7 FL Neutrophils (%) (Auto) 76.9 % Lymphocytes (%) (Auto) 12.6 % Monocytes (%) (Auto) 8.1 % Eosinophils (%) (Auto) 1.2 % Basophils (%) (Auto) 1.2 % Neutrophils # (Auto) 10.3 TH/MM3 Lymphocytes # (Auto) 1.7 TH/MM3 Monocytes # (Auto) 1.1 TH/MM3 Eosinophils # (Auto) 0.2 TH/MM3 Basophils # (Auto) 0.2 TH/MM3 CBC Comment DIFF FINAL Differential Comment Total Protein 6.8 GM/DL Albumin 3.3 GM/DL Magnesium Level 1.9 MG/DL Alkaline Phosphatase 120 U/L Aspartate Amino Transf (AST/SGOT) 20 U/L Alanine Aminotransferase (ALT/SGPT) 43 U/L Total Bilirubin 1.0 MG/DL Troponin I LESS THAN 0.02 NG/ML Test 09/29/17 03:34 Blood Gas Puncture Site RT RADIAL Blood Gas Patient Temperature 98.6 Blood Gas HCO3 24 mmol/L Blood Gas Base Excess 0.3 mmol/L Blood Gas Oxygen Saturation 94 % Arterial Blood pH 7.41 Arterial Blood Partial Pressure CO2 39 mmHg Arterial Blood Partial Pressure O2 100 mmHg Arterial Blood Oxygen Content 18.4 Vol % Arterial Blood Carboxyhemoglobin 1.0 % Arterial Blood Methemoglobin 1.5 % Blood Gas Hemoglobin 13.8 G/DL Oxygen Delivery Device NASAL CANNULA Blood Gas Liter Flow 3.5 L/M Imaging Last Impressions Head CT 09/29/17 0000 Signed Impressions: Service Date/Time: Friday, September 29, 2017 02:28 - CONCLUSION: 1. Periventricular and deep white matter tracts small vessel ischemic demyelination. 2. Nothing acute. Luís John MD Chest X-Ray 09/29/17 0000 Signed Impressions: Service Date/Time: Friday, September 29, 2017 02:32 - CONCLUSION: 1. Faint interstitial infiltrate in the right apex. Mild atelectatic changes/scarring above the both hemidiaphragms. 2. Right shoulder is high riding characteristic of a chronic rotator cuff injury. Luís John MD Objective Remarks GENERAL: Lethargic seen with mouth wide open but appeared to be comfortable in no acute distress HAD EEG being DONE SKIN: Warm and dry. HEAD: Atraumatic. Normocephalic. EYES: Pupils equal and round. No scleral icterus. No injection or drainage. ENT: No nasal bleeding or discharge. Mucous membranes pink and moist. NECK: Trachea midline. No JVD. Supple CARDIOVASCULAR: IRRegular rate and rhythm. S1-S2 no S3-S4 RESPIRATORY: No accessory muscle use. Clear to auscultation. Breath sounds equal bilaterally. GASTROINTESTINAL: Abdomen soft, non-tender, nondistended. Hepatic and splenic margins not palpable. MUSCULOSKELETAL: Extremities without clubbing, cyanosis, or edema. No obvious deformities. NEUROLOGICAL: NOT Awake and alert. No obvious cranial nerve deficits. Motor not able to be assessed due to lethargy. Motor strength not able to be assessed due to lethargy. Normal speech. PSYCHIATRIC: INAppropriate mood and affect; insight and judgment ABnormal. Procedures NONE Medications and IVs Current Medications Cholestyramine Resin (Questran 4 Gm Pkt) 4 gm DAILY PRN PO DIARRHEA; Start at 17:00 Digoxin (Lanoxin) 0.125 mg DAILY PO Last administered on 09/29/17at 09:43; Start 09/28/17 at 09:00 Escitalopram Oxalate (Lexapro) 10 mg DAILY PO Last administered on 09/28/17at 10 :05; Start 09/28/17 at 09:00; Status Future hold Fluticasone/ Vilanterol (Breo Ellipta 100-25 Inh) 1 puff DAILY INH Last administered on 09/29/17at 09:50; Start 09/28/17 at 09:00 Levothyroxine Sodium (Synthroid) 88 mcg DAILY@0600 PO Last administered on 09/28at 05:20; Start 09/28/17 at 06:00 Mirtazapine (Remeron) 7.5 mg HS PO Last administered on 09/27/17at 20:23; Start 09/27/17 at 21:00; Status Future hold Oxycodone HCl (Roxicodone) 5 mg Q6HR PRN PO pain; Start 09/27/17 at 17:00; Status Future Hold Ropinirole HCl (Requip) 0.5 mg BID PO Last administered on 09/29/17at 09:43; Start 09/27/17 at 21:00 Warfarin Sodium (Coumadin) 6 mg DAILY@1600 PO ; Start 09/28/17 at 16:00 Calcium/Vitamin D (Oscal-D 250-125) 500 mg DAILY PO Last administered on at 09:43; Start 09/28/17 at 09:00 Famotidine (Pepcid) 20 mg BID PO Last administered on 09/28/17at 10:04; Start at 21:00; Stop 09/28/17 at 15:32; Status DC Patient Own Medication PT OWN MED: Memantine-Donepezil (Namzaric) 1 CAP DAILY@ 1700 PO ; Start 09/27/17 at 17:00; Status Future Hold Lorazepam (Ativan) 0.5 mg Q12H PRN PO MODERATE TO SEVERE ANXIETY; Start at 17:00; Stop 09/28/17 at 15:32; Status DC Lorazepam (Ativan Inj) 0.5 mg Q12H PRN IM MODERATE TO SEVERE ANXIETY; Start at 17:00; Stop 09/28/17 at 15:32; Status DC Acetaminophen (Tylenol) 650 mg Q4H PRN PO Pain 1-5 or Temp >101F; Start at 17:00 Magnesium Hydroxide (Milk Of Magnesia Liq) 30 ml DAILY PRN PO CONSTIPATION; Start 09/27/17 at 17:00 Al Hydrox/Mg Hydrox/Simethicone (Mag-Al Plus Susp Liq) 30 ml Q6H PRN PO DYSPEPSIA; Start 09/27/17 at 17:00 Quetiapine Fumarate (SEROquel) 25 mg BID PO Last administered on 09/28/17at 10: 03; Start 09/27/17 at 21:00; Status Future hold Miscellaneous (Pill Splitter) 1 ea UNSCH PRN OTHER SEE LABEL COMMENTS; Start at 17:45 Pantoprazole Sodium (Protonix) 40 mg DAILY PO Last administered on 09/29/17at 09 :43; Start 09/29/17 at 09:00 Potassium Chloride (KCl) 20 meq ONCE ONCE PO Last administered on 09/28/17at 15 :54; Start 09/28/17 at 15:45; Stop 09/28/17 at 15:47; Status DC Potassium Chloride (KCl) 60 meq ONCE ONCE PO Last administered on 09/28/17at 20 :52; Start 09/28/17 at 19:15; Stop 09/28/17 at 19:16; Status DC Pharmacy Profile Note 0 ml @ 0 mls/hr UNSCH OTHER ; Start 09/28/17 at 19:15; Stop 09/28/17 at 19:22; Status DC Lorazepam (Ativan Inj) 2 mg ONCE ONCE IV PUSH Last administered on 09/29/17at 02:15; Start 09/29/17 at 02:15; Stop 09/29/17 at 02:16; Status DC A/P Assessment and Plan 87 years old female with - Left hip pain after a fall CT of the left lower extremity with no fracture. continue Tylenol as needed. -Elevated LFT's- liver US; Previous cholecystectomy. No choledocholithiasis identified. Bile duct mildly prominent at 8 mm and pancreatic duct mildly prominent at 4 mm diameter. repeat LFT's improved -Acute encephalopathy- possibly due to polypharmacy; Now with probable dementia with behavioral disturbance. Head CT without any acute intracranial abnormalities Appreciate psychiatrist input. SEEN BY [facility]- THEY DID NOT FEEL SHE MET CRITERIA TO BE MOVED -Atrial fibrillation; on Coumadin and digoxin- - DAILY INRS- GOAL 2.0 TO 3.0 -Osteoarthritis- continue with pain control. -Hypokalemia: Give K 60meq x 1 -Hypothyroidism: Continue with Synthroid Discharge Planning PENDING PSYCHIATRIC CLEARANCE Teddy Echavarria DO Sep 29, 2017 14:00
--- NOTE | 2017-09-29 14:03 | HHI.PYPN ---
Subjective Chief Complaint: Delirium Remarks This is a request for second opinion. Admission note was reviewed and I agree with the history. Pt was experiencing symptoms of delirium which have improved today. She is oriented x2 and is more aware of surroundings. She was sedated this morning but this is secondary the ativan she got last night secondary to a possible seizure. She does remain grossly confused with poor insight. Mental Status Examination Appearance: Appropriate Consciousness: Other (sleeping but easily awakened) Orientation: Person, Place Motor Activity: Other (no motor abnormalities noted) Speech: Unremarkable Language: Other (rambling) Fund of Knowledge: Adequate Attention and Concentration: Easily Distracted Memory: Impaired Mood: Appropriate Affect: Appropriate Thought Process & Associations: Circumstantial Thought Content: Bizarre thinking Hallucination Type: Other ( ) Delusion Type: None Suicidal Ideation: No Suicidal Plan: No Suicidal Intention: No Homicidal Ideation: No Homicidal Plan: No Homicidal Intention: No Insight: Poor Judgment: Poor Results Labs Test 09/28/17 15:52 09/29/17 01:30 09/29/17 03:17 09/29/17 03:34 Erythrocyte Sedimentation Rate 16 mm/hr Ammonia 16 MCMOL/L 17 MCMOL/L HIV (1&2) Ab and P24 Ag, 4th Gener NONREACTIVE Prothrombin Time 14.3 SEC 14.0 SEC Prothromb Time International Ratio 1.4 RATIO 1.4 RATIO White Blood Count 13.4 TH/MM3 Red Blood Count 4.65 MIL/MM3 Hemoglobin 13.6 GM/DL Hematocrit 40.2 % Mean Corpuscular Volume 86.5 FL Mean Corpuscular Hemoglobin 29.3 PG Mean Corpuscular Hemoglobin Concent 33.9 % Red Cell Distribution Width 14.4 % Platelet Count 395 TH/MM3 Mean Platelet Volume 6.7 FL Neutrophils (%) (Auto) 76.9 % Lymphocytes (%) (Auto) 12.6 % Monocytes (%) (Auto) 8.1 % Eosinophils (%) (Auto) 1.2 % Basophils (%) (Auto) 1.2 % Neutrophils # (Auto) 10.3 TH/MM3 Lymphocytes # (Auto) 1.7 TH/MM3 Monocytes # (Auto) 1.1 TH/MM3 Eosinophils # (Auto) 0.2 TH/MM3 Basophils # (Auto) 0.2 TH/MM3 CBC Comment DIFF FINAL Differential Comment Blood Urea Nitrogen 17 MG/DL Creatinine 0.86 MG/DL Random Glucose 108 MG/DL Total Protein 6.8 GM/DL Albumin 3.3 GM/DL Calcium Level 8.4 MG/DL Magnesium Level 1.9 MG/DL Alkaline Phosphatase 120 U/L Aspartate Amino Transf (AST/SGOT) 20 U/L Alanine Aminotransferase (ALT/SGPT) 43 U/L Total Bilirubin 1.0 MG/DL Sodium Level 142 MEQ/L Potassium Level 3.8 MEQ/L Chloride Level 107 MEQ/L Carbon Dioxide Level 27.1 MEQ/L Anion Gap 8 MEQ/L Estimat Glomerular Filtration Rate 62 ML/MIN Troponin I LESS THAN 0.02 NG/ML Blood Gas Puncture Site RT RADIAL Blood Gas Patient Temperature 98.6 Blood Gas HCO3 24 mmol/L Blood Gas Base Excess 0.3 mmol/L Blood Gas Oxygen Saturation 94 % Arterial Blood pH 7.41 Arterial Blood Partial Pressure CO2 39 mmHg Arterial Blood Partial Pressure O2 100 mmHg Arterial Blood Oxygen Content 18.4 Vol % Arterial Blood Carboxyhemoglobin 1.0 % Arterial Blood Methemoglobin 1.5 % Blood Gas Hemoglobin 13.8 G/DL Oxygen Delivery Device NASAL CANNULA Blood Gas Liter Flow 3.5 L/M Vitals/IOs Vital Signs Date Time Temp Pulse Resp B/P (MAP) Pulse Ox O2 Delivery O2 Flow Rate FiO2 09/29/17 06:36 97.7 83 16 155/86 (109) 97 09/29/17 02:00 4.00 09/29/17 02:00 Nasal Cannula Intake and Output 09/29/17 09/29/17 09/30/17 08:00 16:00 00:00 Intake Total 360 ml Balance 360 ml Assessment & Plan Problem List: (1) Delirium ICD Codes: R41.0 - Disorientation, unspecified Assessment & Plan I agree with the first opinion to continue petition, criteria include acute psychosis. Justification for Cont. Inpt. Pt would decompensate in a less restrictive setting Request HC Surrog/Guard Advoc?: Yes Santos Denise DO Sep 29, 2017 14:03
[2017-09-29] MEDS: WARFARIN SOD 6 MG TAB PO SCH (16:12)
[2017-09-29 18:00] VITALS: BP 155/86; PULSE 83; RESP 16; TEMP 97.7; O2SAT 97
[2017-09-29] MEDS: QUEtiapine FUMARATE 25 MG TAB PO SCH (20:05)
[2017-09-29] MEDS: MIRTAZAPINE 15 MG TAB PO SCH (20:05)
[2017-09-29 20:30] LABS: AMORPHOUS SEDIMENT, URINE OCC; BILIRUBIN, URINE NEG (NEG); BLOOD, URINE NEG (NEG); GLUCOSE,URINE NEG (NEG); KETONE, URINE TRACE mg/dL (NEG); MUCUS URINE FEW /lpf (OCC); NITRITE,URINE NEG (NEG); SQUAMOUS EPITHELIAL CELL URINE 1 /hpf (0-5); URINE COLOR YELLOW (YELLW/STRAW); URINE LEUKOCYTE ESTERASE LARGE (NEG); WHITE BLOOD CELL CLUMPS RARE
[2017-09-30] MEDS: LEVOTHYROXINE SODIUM 88 MCG TAB PO SCH (06:24)
[2017-09-30 06:37] VITALS: BP 150/65; PULSE 80; RESP 15; TEMP 98.1; O2SAT 93
[2017-09-30] MEDS: FLUTICASONE 100 MCG/VILANTEROL 25 MCG INHALER INH SCH (08:41)
[2017-09-30] MEDS: DIGOXIN 0.125 MG TAB PO SCH (08:41)
[2017-09-30] MEDS: QUEtiapine FUMARATE 25 MG TAB PO SCH ×2 (08:41→20:25)
[2017-09-30] MEDS: PANTOPRAZOLE SOD 40 MG DELAYED RELEASE TAB PO SCH (08:41)
[2017-09-30] MEDS: CALCIUM/VITAMIN D 250 MG/125 U TAB PO SCH (08:41)
[2017-09-30] MEDS: ESCITALOPRAM OXALATE 10 MG TAB PO SCH (08:41)
--- NOTE | 2017-09-30 08:52 | HHI.PYPN ---
Subjective Chief Complaint: Delirium Remarks Patient seen and examined with nurse. Chart reviewed. Case discussed with nursing staff. Patient had spell over the weekend concerning for possible seizure. EEG read is pending. Patient noted to be confused per nursing staff. On my examination today, the patient is sleeping but easily arousable. She is oriented to person and hospital only. She is able to say that the most recent holiday was . Terry's Day. She remains somewhat inattentive. She does not appear to be responding to internal stimuli this morning, nor does she report any AVH. She denies any SI or HI. She denies any side effects from medications. She does continue to complain of some left hip pain but otherwise has no acute physical complaints. Spoke with patient's son Silverio. He reports patient has a history of dementia and resides in a memory care center. He feels that patient is improving since arriving on [facility] from the medical floor, although she remains off her recent baseline. He notes that she has never experienced psychotic symptoms before. We discuss differential diagnosis, and I provided psychoeducation regarding delirium. We discussed patient's medications, and in particular we discuss side effects including the FDA black box warning for increased risk of in the demented elderly with atypical antipsychotics. We discuss anticipated hospital course and disposition plan. Silverio thanks me for the call. I spent about 14 minutes in telephone consultation with patient's son. Review of Systems ROS Limitations: Poor Historian Except as stated in HPI: all other systems reviewed are Neg Mental Status Examination Appearance: Appropriate Consciousness: Other (asleep but easily awakened) Orientation: Person, Place (hospital) Motor Activity: Other (no hand tremor, no cogwheeling, no dystonia, no dyskinesia, no other motor abnormalities noted. No ictal activity noted.) Speech: Unremarkable Language: Adequate Fund of Knowledge: Adequate Attention and Concentration: Other (somewhat inattentive) Memory: Impaired Mood: Appropriate Affect: Appropriate Thought Process & Associations: Circumstantial Thought Content: Bizarre thinking Hallucination Type: None Delusion Type: None Suicidal Ideation: No Suicidal Plan: No Suicidal Intention: No Homicidal Ideation: No Homicidal Plan: No Homicidal Intention: No Insight: Poor Judgment: Poor Results Labs Test 09/29/17 19:40 Urine Color YELLOW Urine Turbidity CLOUDY Urine pH 5.0 Urine Specific [place] 1.026 Urine Protein TRACE mg/dL Urine Glucose (UA) NEG mg/dL Urine Ketones TRACE mg/dL Urine Occult Blood NEG Urine Nitrite NEG Urine Bilirubin NEG Urine Urobilinogen LESS THAN 2.0 MG/DL Urine Leukocyte Esterase LARGE Urine WBC 9 /hpf Urine WBC Clumps RARE Urine Squamous Epithelial Cells 1 /hpf Urine Amorphous Sediment OCC Urine Mucus FEW /lpf Microscopic Urinalysis Comment CULTURE INDICATED Date/Time Source Procedure Growth Status 09/29/17 19:40 Urine Clean Catch Urine Culture Pending Received Labs and studies reviewed. Urine culture pending. EEG read pending. Vitals/IOs Vital Signs Date Time Temp Pulse Resp B/P (MAP) Pulse Ox O2 Delivery O2 Flow Rate FiO2 09/30/17 06:37 98.1 80 15 150/65 (93) 93 09/29/17 02:00 4.00 09/29/17 02:00 Nasal Cannula Assessment & Plan Problem List: (1) Delirium ICD Codes: R41.0 - Disorientation, unspecified (2) History of dementia ICD Codes: Z86.59 - Personal history of other mental and behavioral disorders Assessment & Plan Discontinue Remeron as antihistaminic effect may exacerbate delirium. In its place, titrate Seroquel to 25mg qAM and 37.5mg qHS. Continue Lexapro as ordered. Hospitalist input noted and appreciated. Follow-up outstanding labs, studies. Continue to monitor on the medical psychiatric unit. Continue other medications and care as ordered. Justification for Cont. Inpt. Impairment in reality construction. Impairment in self-care. High risk for decompensation in less restrictive environment. Discharge Planning Pending psychiatric stabilization. Request HC Surrog/Guard Advoc?: Yes Jermaine Barton MD Sep 30, 2017 08:52
[2017-09-30 13:02] LABS: AUTOMATED NEUTROPHIL # 10.2 TH/MM3 (1.8-7.7); BASOPHIL # 0.1 TH/MM3 (0-0.2); BASOPHIL % 0.8 % (0.0-2.0); EOSINOPHIL # 0.2 TH/MM3 (0-0.4); EOSINOPHIL % 1.5 % (0.0-4.0); HEMATOCRIT 43.9 % (35.0-46.0); HEMOGLOBIN 14.3 GM/DL (11.6-15.3); LYMPH % 13.6 % (9.0-44.0); LYMPHOCYTE # 1.8 TH/MM3 (1.0-4.8); MEAN CELL VOLUME 87.2 FL (80.0-100.0); MEAN CORPUSCULAR HEMOGLOBIN 28.3 PG (27.0-34.0); MEAN CORPUSCULAR HGB CONC 32.5 % (32.0-36.0); MEAN PLATELET VOLUME 6.7 FL (7.0-11.0); MONO % 6.2 % (0.0-8.0); MONOCYTE # 0.8 TH/MM3 (0-0.9); NEUT % 77.9 % (16.0-70.0); PLATELET COUNT 460 TH/MM3 (150-450); RED BLOOD COUNT 5.03 MIL/MM3 (4.00-5.30); RED CELL DISTRIBUTION WIDTH 14.8 % (11.6-17.2); WHITE BLOOD COUNT 13.1 TH/MM3 (4.0-11.0)
[2017-09-30 13:19] LABS: ALBUMIN 3.4 GM/DL (3.4-5.0); AST (GOT) 23 U/L (15-37); BICARBONATE 27.9 MEQ/L (21.0-32.0); BLOOD UREA NITROGEN 18 MG/DL (7-18); CALCIUM 9.2 MG/DL (8.5-10.1); CHLORIDE 104 MEQ/L (98-107); CREATININE 0.94 MG/DL (0.50-1.00); GLOMERULAR FILTRATION RATE 56 ML/MIN (>89); GLUCOSE,RANDOM 101 MG/DL (74-106); MAGNESIUM 1.7 MG/DL (1.5-2.5); SODIUM (NA) 141 MEQ/L (136-145)
[2017-09-30 13:20] LABS: ALT (GPT) 35 U/L (10-53); PHOSPHORUS 2.9 MG/DL (2.5-4.9)
[2017-09-30 13:29] LABS: ALKALINE PHOSPHATASE 123 U/L (45-117); FREE T4 0.93 NG/DL (0.76-1.46); TOTAL BILIRUBIN ADULT 0.7 MG/DL (0.2-1.0)
[2017-09-30 13:39] LABS: HEMOGLOBIN A1C 5.1 % (4.3-6.0)
--- NOTE | 2017-09-30 14:31 | HHI.PR ---
Subjective Remarks Follow up left hip pain, elevated LFTs, encephalopathy. Patient reporting pain in the left hip. No other complaints at this time. Objective Vitals Vital Signs Date Time Temp Pulse Resp B/P (MAP) Pulse Ox O2 Delivery O2 Flow Rate FiO2 09/30/17 06:37 98.1 80 15 150/65 (93) 93 09/29/17 18:00 97.7 83 16 155/86 (109) 97 I/O 09/29/17 09/29/17 09/29/17 09/30/17 09/30/17 09/30/17 07:00 15:00 23:00 07:00 15:00 23:00 Intake Total 360 ml 840 ml 1440 ml Balance 360 ml 840 ml 1440 ml Intake Oral 360 ml 840 ml 1440 ml # Voids 2 1 # Bowel Movements 1 Result Diagram: 09/30/17 1215 09/30/17 1215 Imaging Last Impressions Head CT 09/29/17 0000 Signed Impressions: Service Date/Time: Friday, September 29, 2017 02:28 - CONCLUSION: 1. Periventricular and deep white matter tracts small vessel ischemic demyelination. 2. Nothing acute. Luís John MD Chest X-Ray 09/29/17 0000 Signed Impressions: Service Date/Time: Friday, September 29, 2017 02:32 - CONCLUSION: 1. Faint interstitial infiltrate in the right apex. Mild atelectatic changes/scarring above the both hemidiaphragms. 2. Right shoulder is high riding characteristic of a chronic rotator cuff injury. Luís John MD Objective Remarks General: Elderly female in no acute distress. Heart: Regular rate and rhythm. No murmur. Lungs: Clear to auscultation bilaterally. No wheezes, rales, or rhonchi. Breathing is nonlabored. Abdomen: Soft, nontender, nondistended. Extremities: No lower extremity edema. Psych: Alert, confused. Not oriented to year, month. Oriented to city. Procedures NONE Urinary Catheter: No Vascular Central Line Catheter: No A/P Assessment and Plan 1. Left hip pain following fall: CT of the left lower extremity shows no evidence of fracture. Tylenol as needed for pain. 2. Hypothyroidism: Continue Synthroid. 3. Acute encephalopathy: Likely baseline dementia with acute worsening due to polypharmacy. Head CT negative for acute changes. Still confused, but mental status has improved. 4. [facility]IC[facility] called due to encephalopathy on 09/29/17. Evaluated by critical care. Did not require transfer to ICU. 5. Atrial fibrillation: Continue Coumadin, digoxin. Monitor INR. 6. Hypokalemia: Supplement potassium. Uri Montano MD Sep 30, 2017 14:31
[2017-09-30] MEDS ORDERED: POTASSIUM CHLORIDE 10 MEQ CONTROLLED RELEASE TAB PO ONE (15:00)
[2017-09-30] MEDS ORDERED: MAGNESIUM OXIDE 400 MG TAB PO ONE (15:00)
[2017-09-30] MEDS: WARFARIN SOD 6 MG TAB PO SCH (17:06)
[2017-09-30 18:03] LABS: INTERNATIONAL NORMALIZED RATIO 1.5 RATIO; PROTHROMBIN TIME - PATIENT 15.4 SEC (9.8-11.6)
[2017-09-30 18:19] VITALS: BP 125/70; PULSE 84; RESP 15; TEMP 97.4; O2SAT 94
[2017-10-01 05:15] VITALS: BP 113/57; PULSE 103; RESP 18; TEMP 97.7; O2SAT 93
[2017-10-01] MEDS: LEVOTHYROXINE SODIUM 88 MCG TAB PO SCH (05:59)
--- NOTE | 2017-10-01 07:03 | MG ---
cc: Gilberto Galdamez MD ELECTROENCEPHALOGRAM RECORD NUMBER: [id number]. DESCRIPTION: This is an 87-year-old with a history of mental status changes. Noted to be asleep in the beginning of the recording, stage I and drowsy. 5-6 hertz, 20-50 microvolts. Theta/beta frequencies in the frontal channels. Good anterior to posterior gradient. Whole body jerk around epoch 20. Some myogenic type potential occurring, although epoch 24 myogenic potential did not appear epileptic neither before or after the event. Good EEG variability and reactivity. Limited driving with photic stimulation. Single lead EKG showing irregularly irregular rhythm. INTERPRETATION: Mainly sleep state EEG with brief episodes of normal wakefulness. 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 Clinical correlation. MD ANA Pack/CELINA , 08:55 PM , 09:35 PM
[2017-10-01 07:54] LABS: INTERNATIONAL NORMALIZED RATIO 1.7 RATIO; PROTHROMBIN TIME - PATIENT 16.7 SEC (9.8-11.6)
[2017-10-01 08:34] LABS: BICARBONATE 26.4 MEQ/L (21.0-32.0); CREATININE 0.84 MG/DL (0.50-1.00)
--- NOTE | 2017-10-01 08:50 | HHI.PYPN ---
Subjective Chief Complaint: Delirium Remarks Patient seen and examined with nurse. Chart reviewed. Case discussed with nursing staff. Case discussed in treatment team. On my examination today, the patient remains confused as at recent baseline. She does not recall our having previously met. She is oriented to person but gives the year as 1804. She is unsure of the location. She denies any AVH. No paranoia. No SI or HI. No reported behavioral problems per nurse. No side effects from medications. No acute physical complaints. Review of Systems ROS Limitations: Poor Historian Except as stated in HPI: all other systems reviewed are Neg Mental Status Examination Appearance: Appropriate Consciousness: Alert Orientation: Person Motor Activity: Other (no hand tremor, no cogwheeling, no dystonia, no dyskinesia, no other motor abnormalities noted. No ictal activity noted.) Speech: Unremarkable Language: Adequate Fund of Knowledge: Adequate Attention and Concentration: Other (some inattention noted) Memory: Impaired Mood: Appropriate Affect: Appropriate Thought Process & Associations: Circumstantial Thought Content: Appropriate Hallucination Type: None Delusion Type: None Suicidal Ideation: No Suicidal Plan: No Suicidal Intention: No Homicidal Ideation: No Homicidal Plan: No Homicidal Intention: No Insight: Poor Judgment: Poor Results Labs Test 09/30/17 12:15 09/30/17 17:13 10/01/17 07:10 White Blood Count 13.1 TH/MM3 Red Blood Count 5.03 MIL/MM3 Hemoglobin 14.3 GM/DL Hematocrit 43.9 % Mean Corpuscular Volume 87.2 FL Mean Corpuscular Hemoglobin 28.3 PG Mean Corpuscular Hemoglobin Concent 32.5 % Red Cell Distribution Width 14.8 % Platelet Count 460 TH/MM3 Mean Platelet Volume 6.7 FL Neutrophils (%) (Auto) 77.9 % Lymphocytes (%) (Auto) 13.6 % Monocytes (%) (Auto) 6.2 % Eosinophils (%) (Auto) 1.5 % Basophils (%) (Auto) 0.8 % Neutrophils # (Auto) 10.2 TH/MM3 Lymphocytes # (Auto) 1.8 TH/MM3 Monocytes # (Auto) 0.8 TH/MM3 Eosinophils # (Auto) 0.2 TH/MM3 Basophils # (Auto) 0.1 TH/MM3 CBC Comment DIFF FINAL Differential Comment Blood Urea Nitrogen 18 MG/DL 17 MG/DL Creatinine 0.94 MG/DL 0.84 MG/DL Random Glucose 101 MG/DL 95 MG/DL Total Protein 7.0 GM/DL Albumin 3.4 GM/DL Calcium Level 9.2 MG/DL 9.0 MG/DL Phosphorus Level 2.9 MG/DL Magnesium Level 1.7 MG/DL Alkaline Phosphatase 123 U/L Aspartate Amino Transf (AST/SGOT) 23 U/L Alanine Aminotransferase (ALT/SGPT) 35 U/L Total Bilirubin 0.7 MG/DL Sodium Level 141 MEQ/L 141 MEQ/L Potassium Level 3.2 MEQ/L 4.3 MEQ/L Chloride Level 104 MEQ/L 105 MEQ/L Carbon Dioxide Level 27.9 MEQ/L 26.4 MEQ/L Anion Gap 9 MEQ/L 10 MEQ/L Estimat Glomerular Filtration Rate 56 ML/MIN 64 ML/MIN Hemoglobin A1c 5.1 % Free Thyroxine 0.93 NG/DL Thyroid Stimulating Hormone 3rd Gen 8.620 uIU/ML Prothrombin Time 15.4 SEC 16.7 SEC Prothromb Time International Ratio 1.5 RATIO 1.7 RATIO Date/Time Source Procedure Growth Status 09/29/17 19:40 Urine Clean Catch Urine Culture - Final 50-100,000 CFU/ML MIXED MARGARET... Complete Labs reviewed. Urine culture reveals only mixed margaret. Stable leukocytosis. TSH elevated but free T4 within normal limits. Vitals/IOs Vital Signs Date Time Temp Pulse Resp B/P (MAP) Pulse Ox O2 Delivery O2 Flow Rate FiO2 10/01/17 05:15 97.7 103 18 113/57 (75) 93 09/29/17 02:00 4.00 09/29/17 02:00 Nasal Cannula Assessment & Plan Problem List: (1) Delirium ICD Codes: R41.0 - Disorientation, unspecified (2) History of dementia ICD Codes: Z86.59 - Personal history of other mental and behavioral disorders Assessment & Plan Patient's mentation appears to be stabilizing with no evidence of ongoing psychosis. Continue Seroquel and Lexapro as ordered. Continue to monitor on the medical psychiatric unit. Hospitalist input noted and appreciated. Continue other medications and care as ordered. Justification for Cont. Inpt. Monitoring for any impairments in reality construction. Discharge Planning Possible discharge back to memory care facility tomorrow Request HC Surrog/Guard Advoc?: Yes Jermaine Barton MD Oct 01, 2017 08:50
--- NOTE | 2017-10-01 09:04 | HHI.PR ---
Subjective Remarks Follow-up visit encephalopathy, left hip pain, hypothyroidism, atrial fibrillation. Patient seen and examined today laying in bed. Reports she is doing well. States left hip is not doing good with moving because when she was staying at [facility] she went to the bathroom and wanted to screws in the toilet was not and then she fell on the floor. She was evaluated but states that there is no fracture and no surgery needed for it. Otherwise, denies pain and discomfort. Denies SOB/ dyspnea. Denies chest pain, palpitations, headaches, dizziness. Denies fevers, chills, n/v/d. Denies dysuria. Objective Vitals Vital Signs Date Time Temp Pulse Resp B/P (MAP) Pulse Ox O2 Delivery O2 Flow Rate FiO2 10/01/17 05:15 97.7 103 18 113/57 (75) 93 09/30/17 18:19 97.4 84 15 125/70 (88) 94 I/O 09/30/17 09/30/17 09/30/17 10/01/17 10/01/17 10/01/17 07:00 15:00 23:00 07:00 15:00 23:00 Intake Total 1440 ml 960 ml Balance 1440 ml 960 ml Intake Oral 1440 ml 960 ml # Voids 1 1 1 Result Diagram: 09/30/17 1215 10/01/17 0710 Imaging Last Impressions Head CT 09/29/17 0000 Signed Impressions: Service Date/Time: Friday, September 29, 2017 02:28 - CONCLUSION: 1. Periventricular and deep white matter tracts small vessel ischemic demyelination. 2. Nothing acute. Luís John MD Chest X-Ray 09/29/17 0000 Signed Impressions: Service Date/Time: Friday, September 29, 2017 02:32 - CONCLUSION: 1. Faint interstitial infiltrate in the right apex. Mild atelectatic changes/scarring above the both hemidiaphragms. 2. Right shoulder is high riding characteristic of a chronic rotator cuff injury. Luís John MD Objective Remarks GENERAL: This is a well-nourished, well-developed patient, in no apparent distress. SKIN: Warm and dry HEENT: Normocephalic. Pupils equal round and reactive. Nose without bleeding. Airway patent. NECK: Trachea midline. No JVD. Supple. CARDIOVASCULAR: Regular rate and rhythm without murmurs, gallops, or rubs. RESPIRATORY: Clear to auscultation. Breath sounds equal bilaterally. No wheezes , rales, or rhonchi. GASTROINTESTINAL: Abdomen soft, non-tender, nondistended. Bowel Sounds normoactive x4. MUSCULOSKELETAL: Extremities without clubbing, cyanosis, or edema. Left lower extremity movement limited but able to bend knee strength is 3/5, right lower extremity strength is 4/5. NEUROLOGICAL: Awake and alert. Oriented to place, person. Confuse but easily oriented. Normal speech. Procedures NONE A/P Problem List: (1) History of dementia ICD Code: Z86.59 - Personal history of other mental and behavioral disorders (2) Delirium ICD Code: R41.0 - Disorientation, unspecified (3) Left hip pain ICD Code: M25.552 - Pain in left hip Assessment and Plan 87 y/o female with history of osteoarthritis,atrial fibrillation and hypothyroidism who was brought to ER after she fell. She is now admitted to inpatient medical psychiatry unit for further evaluation. Consulted for assistance in medical management. ALFONZO called due to encephalopathy on 09/29/17. Evaluated by critical care. Did not require transfer to ICU. -Improved mentation. Confuse but appears at baseline. Left hip pain following fall: -CT of the left lower extremity shows no evidence of fracture. -Tylenol as needed for pain. Hypothyroidism: -Continue Synthroid. Acute encephalopathy: Likely baseline dementia with acute worsening due to polypharmacy. Head CT negative for acute changes. Still confused, but mental status has improved. Atrial fibrillation: -Continue Coumadin, digoxin. Monitor INR. Hypokalemia: -Supplement potassium. -Improved DVT prop on Coumadin Kalyani Russ Oct 01, 2017 09:04
[2017-10-01] MEDS: CALCIUM/VITAMIN D 250 MG/125 U TAB PO SCH (09:07)
[2017-10-01] MEDS: QUEtiapine FUMARATE 25 MG TAB PO SCH ×2 (09:07→20:52)
[2017-10-01] MEDS: FLUTICASONE 100 MCG/VILANTEROL 25 MCG INHALER INH SCH (09:07)
[2017-10-01] MEDS: DIGOXIN 0.125 MG TAB PO SCH (09:07)
[2017-10-01] MEDS: PANTOPRAZOLE SOD 40 MG DELAYED RELEASE TAB PO SCH (09:07)
[2017-10-01] MEDS: ESCITALOPRAM OXALATE 10 MG TAB PO SCH (09:07)
[2017-10-01] MEDS: WARFARIN SOD 6 MG TAB PO SCH (16:01)
[2017-10-01 17:48] VITALS: BP 150/77; PULSE 80; RESP 18; TEMP 98; O2SAT 93
[2017-10-01] MEDS: RESP: ALBUTEROL 2.5 MG/IPRATROPIUM 0.5 MG NEB (SCH) NEB (20:57)
[2017-10-02] MEDS: LEVOTHYROXINE SODIUM 88 MCG TAB PO SCH (05:41)
[2017-10-02 06:15] VITALS: BP 133/79; PULSE 78; RESP 15; TEMP 97.5; O2SAT 93
[2017-10-02] MEDS: RESP: ALBUTEROL 2.5 MG/IPRATROPIUM 0.5 MG NEB (SCH) NEB (08:03)
[2017-10-02] MEDS ORDERED: SERO25TA PO ×2 (08:24)
[2017-10-02] MEDS ORDERED: PANT40TA3 PO (08:24)
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
--- NOTE | 2017-10-02 08:25 | HHI.FF ---
Face to Face Verification Diagnosis: (1) Delirium (2) History of dementia Physical Therapy Order: Evaluate and Treat, Improve ambulation, Strength and gait training Occupational Therapy Order: Evaluate and Treat, Improve ADL, Gross motor coordination, Fine motor coordination I have seen patient Shakila Villaseñor on 10/02/17. My clinical findings support the need for the requested home health care services because: Need for psychosocial assistance Impaired cognition/judgement I certify that my clinical findings support that this patient is homebound because: Impaired cognitive ability/safety Need for psychosocial assistance Jermaine Barton MD Oct 02, 2017 08:25
[2017-10-02] MEDS: DIGOXIN 0.125 MG TAB PO SCH (09:00)
[2017-10-02] MEDS: CALCIUM/VITAMIN D 250 MG/125 U TAB PO SCH (09:00)
[2017-10-02] MEDS: PANTOPRAZOLE SOD 40 MG DELAYED RELEASE TAB PO SCH (09:00)
[2017-10-02] MEDS: FLUTICASONE 100 MCG/VILANTEROL 25 MCG INHALER INH SCH (09:00)
[2017-10-02] MEDS: QUEtiapine FUMARATE 25 MG TAB PO SCH (09:00)
[2017-10-02] MEDS: ESCITALOPRAM OXALATE 10 MG TAB PO SCH (09:00)
[2017-10-02 09:44] LABS: INTERNATIONAL NORMALIZED RATIO 2.1 RATIO; PROTHROMBIN TIME - PATIENT 21.2 SEC (9.8-11.6)
--- NOTE | 2017-10-02 23:38 | HHI.PR ---
Subjective Remarks She is seen today around noon. Denies any chest pain or shortness of breath. She is upset that all she has is pajamas. Otherwise says medically she feels comfortable and without pain. Objective Vital Signs Date Time Temp Pulse Resp B/P (MAP) Pulse Ox O2 Delivery O2 Flow Rate FiO2 10/02/17 06:15 97.5 78 15 133/79 (97) 93 I/O 10/02/17 10/02/17 10/02/17 10/03/17 10/03/17 10/03/17 07:00 15:00 23:00 07:00 15:00 23:00 Intake Total 960 ml Balance 960 ml Intake Oral 960 ml # Voids 1 Result Diagram: 09/30/17 1215 10/01/17 0710 Imaging Last Impressions Head CT 09/29/17 0000 Signed Impressions: Service Date/Time: Friday, September 29, 2017 02:28 - CONCLUSION: 1. Periventricular and deep white matter tracts small vessel ischemic demyelination. 2. Nothing acute. Luís John MD Chest X-Ray 09/29/17 0000 Signed Impressions: Service Date/Time: Friday, September 29, 2017 02:32 - CONCLUSION: 1. Faint interstitial infiltrate in the right apex. Mild atelectatic changes/scarring above the both hemidiaphragms. 2. Right shoulder is high riding characteristic of a chronic rotator cuff injury. Luís John MD Objective Remarks patient sitting up in bed. Appears comfortable. A/P Assessment and Plan 87 y/o female with history of osteoarthritis,atrial fibrillation and hypothyroidism who was brought to ER after she fell. She is now admitted to inpatient medical psychiatry unit for further evaluation. Consulted for assistance in medical management. ALFONZO called due to encephalopathy on 09/29/17. Evaluated by critical care. Did not require transfer to ICU. -Improved mentation. Confuse but appears at baseline. Left hip pain following fall: -CT of the left lower extremity shows no evidence of fracture. -Tylenol as needed for pain. Hypothyroidism: -Continue Synthroid. Acute encephalopathy: Likely baseline dementia with acute worsening due to polypharmacy. Head CT negative for acute changes. Still confused, but mental status has improved. Atrial fibrillation: -Continue Coumadin, digoxin. Monitor INR. Hypokalemia: -Supplement potassium. -Improved //Faint infiltrate right lung. We'll need repeat imaging in 2 weeks as outpatient DVT prop on Coumadin Discharge Planning patient discharged. Brendan Azar MD Oct 02, 2017 23:38
== END 2017-10-02 15:50 | DRG 92 ==
LOC: H4EA 14:35
PROVIDERS: ADMIT Psychiatry & Neurology Psychiatry; ATTEND Psychiatry & Neurology Psychiatry
DX: G92 Toxic encephalopathy (principal); F03.91 Unspecified dementia, unspecified severity, with behavioral disturbance; I48.91 Unspecified atrial fibrillation; Z79.01 Long term (current) use of anticoagulants; G40.89 Other seizures; M19.90 Unspecified osteoarthritis, unspecified site; E03.9 Hypothyroidism, unspecified; E87.6 Hypokalemia; F32.9 Major depressive disorder, single episode, unspecified; R41.0 Disorientation, unspecified; M25.552 Pain in left hip; R79.89 Other specified abnormal findings of blood chemistry; Z87.891 Personal history of nicotine dependence
CPT/HCPCS: 36600; 70450; 71045; 80048; 80053; 80061; 81001; 82140; 82607; 82805; 83036; 83735; 84100; 84439; 84443; 84484; 85025; 85610; 85652; 86038; 86592; 86703; 87086; 93005; 94640; 94664; 95819; J2060

== ENCOUNTER 2017-12-08 13:11 | Inpatient (IN) | payer MEDICARE ==
[2017-12-08] VITALS (9 sets, daily range): BP systolic 124–190; BP diastolic 67–88; PULSE 69–76; RESP 16–30; TEMP 97.6–98.1; O2SAT 83–98
[~2017-12-08 13:11] MED LIST changes: -ALPR.5 PO; -ALPR0.5T3 PO; -CYCL5TAB PO; -FAMO40TA PO; -GABA100C4 PO; -GABA300C5 PO; -HYDR-3133 PO; -LOPE2CAP PO; -MIRT1TAB PO; -OXYC-392 PO; +PANT40TA3 PO; +SERO25TA PO; -TRAM50TA PO
[2017-12-08] MEDS: RESP: ALBUTEROL 2.5 MG/IPRATROPIUM 0.5 MG NEB (SCH) INH ×2 (13:29→13:30)
[2017-12-08] MEDS ORDERED: methylPREDNISolone SOD SUCC 125 MG/2 ML VIAL IV PUSH ONE (13:30)
[2017-12-08 13:57] LABS: AUTOMATED NEUTROPHIL # 7.8 TH/MM3 (1.8-7.7); BASOPHIL # 0.1 TH/MM3 (0-0.2); BASOPHIL % 1.3 % (0.0-2.0); EOSINOPHIL # 0.1 TH/MM3 (0-0.4); EOSINOPHIL % 0.8 % (0.0-4.0); HEMOGLOBIN 12.2 GM/DL (11.6-15.3); LYMPH % 13.5 % (9.0-44.0); LYMPHOCYTE # 1.4 TH/MM3 (1.0-4.8); MEAN CELL VOLUME 79.5 FL (80.0-100.0); MEAN CORPUSCULAR HEMOGLOBIN 25.5 PG (27.0-34.0); MEAN CORPUSCULAR HGB CONC 32.1 % (32.0-36.0); MEAN PLATELET VOLUME 6.4 FL (7.0-11.0); MONO % 7.4 % (0.0-8.0); MONOCYTE # 0.7 TH/MM3 (0-0.9); PLATELET COUNT 492 TH/MM3 (150-450); RED BLOOD COUNT 4.79 MIL/MM3 (4.00-5.30); RED CELL DISTRIBUTION WIDTH 15.2 % (11.6-17.2); WHITE BLOOD COUNT 10.1 TH/MM3 (4.0-11.0)
[2017-12-08 14:05] LABS: INTERNATIONAL NORMALIZED RATIO 1.9 RATIO; PROTHROMBIN TIME - PATIENT 19.1 SEC (9.8-11.6)
--- NOTE | 2017-12-08 14:05 | RADRPT ---
EXAM DATE: 12/08/2017 1:54 PM EDT AGE/SEX: 87 years / Female INDICATIONS: Short of breathe CLINICAL DATA: This is the patient's initial encounter. Patient reports that signs and symptoms have been present for 1 day and indicates a pain score of 0/10. MEDICAL/SURGICAL HISTORY: Hypertension. Cardiovascular disease. Cholecystectomy. Pacemaker. COMPARISON: Chest x-ray 09/29/2017. FINDINGS: A single AP view of the chest demonstrates bilateral pleural effusions and bibasilar pulmonary infilt rates. Both are larger on the left. The heart is enlarged. Dual-lead pacer device overlies the left c hest. Degenerative changes involving the shoulders and thoracic spine. CONCLUSION: Radiographic pattern suggesting intra-alveolar pulmonary edema and bilateral pleural effusions. Electronically signed by: John Souza MD 12/08/2017 2:04 PM EDT
[2017-12-08 14:22] LABS: ALBUMIN 3.1 GM/DL (3.4-5.0); ALT (GPT) 21 U/L (10-53); AST (GOT) 22 U/L (15-37); BICARBONATE 28.1 MEQ/L (21.0-32.0); BLOOD UREA NITROGEN 9 MG/DL (7-18); CALCIUM 7.7 MG/DL (8.5-10.1); CHLORIDE 107 MEQ/L (98-107); CREATININE 0.89 MG/DL (0.50-1.00); GLOMERULAR FILTRATION RATE 60 ML/MIN (>89); GLUCOSE,RANDOM 99 MG/DL (74-106); MAGNESIUM 1.6 MG/DL (1.5-2.5); SODIUM (NA) 144 MEQ/L (136-145)
[2017-12-08 14:26] LABS: ALKALINE PHOSPHATASE 92 U/L (45-117); TOTAL BILIRUBIN ADULT 0.5 MG/DL (0.2-1.0); TOTAL PROTEIN 6.3 GM/DL (6.4-8.2); TROPONIN I 0.03 NG/ML (0.02-0.05)
[2017-12-08] MEDS ORDERED: POTASSIUM CHLORIDE 10 MEQ CONTROLLED RELEASE TAB PO ONE (14:30)
[2017-12-08] MEDS ORDERED: FUROSEMIDE 40 MG/4 ML VIAL IV PUSH ONE (14:30)
[2017-12-08] MEDS ORDERED: TRIA.1%T TOPICAL (14:49)
[2017-12-08] MEDS ORDERED: GABA100C4 PO (14:49)
[2017-12-08] MEDS ORDERED: LEVO88TA2 PO (14:49)
[2017-12-08] MEDS ORDERED: CARA1TAB6 PO (14:49)
[2017-12-08] MEDS ORDERED: TYLE325T PO (14:49)
[2017-12-08] MEDS ORDERED: REME15TA PO (14:49)
[2017-12-08] MEDS ORDERED: TRAM50TA PO (14:49)
[2017-12-08] MEDS ORDERED: CETI10 PO (14:49)
[2017-12-08] MEDS ORDERED: OMEP20TA93 PO (14:49)
[2017-12-08] MEDS ORDERED: ALPR.5 PO ×2 (14:49)
[2017-12-08] MEDS ORDERED: [UNRECOGNIZED DRUG - CODE] PO (14:49)
[2017-12-08] MEDS ORDERED: HYDR-3133 PO (14:49)
[2017-12-08] MEDS ORDERED: WARF-23 PO (14:49)
[2017-12-08] MEDS ORDERED: BACI1CAP PO (14:49)
--- NOTE | 2017-12-08 15:38 | PD ---
HPI Chief Complaint: Respiratory Symptoms Time Seen by Provider: 13:21 Travel History International Travel<30 days: No Contact w/Intl Traveler<30days: No Traveled to known affect area: No History of Present Illness HPI Patient is an 87-year-old female who comes in complaining of shortness of breath. She says she has had shortness of breath for the past 3 weeks, but has been increasing. She says it got worse today, so she came in. She denies any chest pain. She denies fever chills. She has had some coughing. She denies any history of congestive heart failure. She also denies history of lung problems, but she is currently taking Brio. Severity is moderate. PFSH Past Medical History Hx Anticoagulant Therapy: Yes (COUMADIN ) Arthritis: Yes Atrial Fibrillation: Yes Autoimmune Disease: No Anxiety: Yes Depression: Yes Cancer: No Cardiovascular Problems: Yes COPD: Yes Diabetes: No Diminished Hearing: Yes Endocrine: Yes Gastrointestinal Disorders: Yes (IBS) Genitourinary: No Hypertension: Yes Immune Disorder: No Implanted Vascular Access Dvce: Yes Musculoskeletal: Yes Neurologic: Yes Psychiatric: No Reproductive: No Respiratory: Yes Immunizations Current: Yes Pneumonia: Yes Thyroid Disease: Yes Menopausal: Yes Past Surgical History Abdominal Surgery: Yes (CHOLESYSTECTOMY) Cardiac Surgery: Yes (LEFT PACEMAKER) Eye Surgery: Yes (CATARACTS) Gynecologic Surgery: Yes (HYSTERECTOMY) Oral Surgery: Yes (TONSILLECTOMY) Pacemaker: Yes Other Surgery: Yes Social History Alcohol Use: No Tobacco Use: No (quit 17 yrs ago) Substance Use: No Allergies-Medications (Allergen,Severity, Reaction): Coded Allergies: orange juice (Verified Allergy, Mild, Rash, 09/28/17) codeine (Unverified Allergy, Unknown, 09/22/17) MRI PRECAUTION (Verified Adverse Reaction, Severe, NON CONDITIONAL PACEMAKER KMD 09/30/2017, 09/30/17) iINSIGNIA iPLUS BY ZIIBRA IMPLANTED 09/24/2007 Reported Meds & Prescriptions Reported Meds & Active Scripts Active Reported Cetirizine (Cetirizine HCl) 10 Mg Tab 10 Mg PO DAILY Tylenol (Acetaminophen) 325 Mg Tab 650 Mg PO Q6H PRN Tramadol (Tramadol HCl) 50 Mg Tab 50 Mg PO Q8H PRN Hydroxyzine HCl 25 Mg Tab 25 Mg PO Q8HR PRN Xanax (Alprazolam) 0.5 Mg Tab 0.5 Mg PO Q8H PRN Triamcinolone Topical (Triamcinolone Acetonide) 0.1% Cream 1 Applic TOPICAL Q12HR PRN [Maalox] 15 Ml PO Q8HR PRN Omeprazole 20 Mg Tab 20 Mg PO DAILY Carafate (Sucralfate) 1 Gram Tab 1 Gm PO TID Take with meals Remeron (Mirtazapine) 15 Mg Tab 15 Mg PO HS Gabapentin 100 Mg Cap 100 Mg PO HS Xanax (Alprazolam) 0.5 Mg Tab 0.5 Mg PO HS Probiotic Formula (Bacillus Coagulans-Inulin) 1-250 Billion-Mg Cap 1 Cap PO DAILY Levothyroxine (Levothyroxine Sodium) 88 Mcg Tab 88 Mcg PO DAILY Warfarin 5 Mg Tab 5 Mg PO DAILY Escitalopram (Escitalopram Oxalate) 10 Mg Tab 10 Mg PO DAILY Os-Edi Calcium + D3 (Calcium Carbonate-Cholecalciferol) 500-200 Mg-Unit Tab 1 Tab PO DAILY Questran (Cholestyramine) 4 Gm/Pkt Powd 4 Gm PO DAILY 1 packet contains 4gm of cholestyramine.Mix with water Namzaric (Memantine-Donepezil) 28-10 Mg Cap 1 Cap PO DAILY @ 1700 Digoxin 0.125 Mg Tab 0.125 Mg PO DAILY @ 1200 Ropinirole 0.5 Mg Tab 0.5 Mg PO BID Breo Ellipta Inh (Fluticasone/Vilanterol) 100-25 Mcg/Act Inh 1 Puff INH DAILY Use daily at the same time. Review of Systems Except as stated in HPI: all other systems reviewed are Neg General / Constitutional: No: Fever, Chills HENT: No: Headaches, Lightheadedness Cardiovascular: No: Chest Pain or Discomfort Respiratory: Positive: Shortness of Breath Gastrointestinal: No: Nausea, Vomiting Musculoskeletal: No: Myalgias, Edema Skin: No Rash, No Change in Pigmentation Neurologic: No: Weakness, Dizziness Physical Exam Narrative GENERAL: Awake and alert, in moderate respiratory distress. SKIN: Focused skin assessment warm/dry. HEAD: Atraumatic. Normocephalic. EYES: Pupils equal and round. No scleral icterus. No injection or drainage. ENT: No nasal bleeding or discharge. Mucous membranes pink and moist. NECK: Trachea midline. No JVD. CARDIOVASCULAR: Regular rate and rhythm. No murmur appreciated. RESPIRATORY: Tachypneic, decreased breath sounds throughout both lungs, occasional wheezes. GASTROINTESTINAL: Abdomen soft, non-tender, nondistended. MUSCULOSKELETAL: No obvious deformities. No clubbing. No cyanosis. No edema. NEUROLOGICAL: Awake and alert. No obvious cranial nerve deficits. Motor grossly within normal limits. Normal speech. PSYCHIATRIC: Appropriate mood and affect; insight and judgment normal. Data Data Last Documented VS Vital Signs Date Time Temp Pulse Resp B/P (MAP) Pulse Ox O2 Delivery O2 Flow Rate FiO2 12/08/17 13:52 69 26 156/71 (99) 98 Nasal Cannula 2.00 12/08/17 13:12 98.1 Orders Orders Electrocardiogram (12/08/17 13:21) Complete Blood Count With Diff (12/08/17 13:21) Comprehensive Metabolic Panel (12/08/17 13:21) Ckmb (Isoenzyme) Profile (12/08/17 13:21) Troponin I (12/08/17 13:21) B-Type Natriuretic Peptide (12/08/17 13:21) Prothrombin Time / Inr (Pt) (12/08/17 13:21) Act Partial Throm Time (Ptt) (12/08/17 13:21) Magnesium (Mg) (12/08/17 13:21) Chest, Single Ap (12/08/17 13:21) Iv Access Insert/Monitor (12/08/17 13:21) Ecg Monitoring (12/08/17 13:21) Oximetry (12/08/17 13:21) Methylprednisolone So Succ Inj (Solumedr (12/08/17 13:30) Albuterol-Ipratropium Neb (Duoneb Neb) (12/08/17 13:30) Furosemide Inj (Lasix Inj) (12/08/17 14:30) Potassium Chloride (Kcl) (12/08/17 14:30) Admit Order (Ed Use Only) (12/08/17 ) Urinalysis - C+S If Indicated (12/08/17 15:48) Specimen To Be Collected PRN (12/08/17 15:48) Digoxin (12/08/17 15:48) Place In Observation (12/08/17 ) Vital Signs (Adult) DEB.Q4H (12/08/17 15:49) Activity Bed Rest (12/08/17 15:49) Accounts Payable Representative / Telemetry DEB.Q8H (12/08/17 15:49) Intake + Output 06,14,22 (12/08/17 15:49) Diet Npo (12/08/17 Dinner) Resp Oxygen Noah C Titrat 1-4 L (12/08/17 ) Sodium Chloride 0.9% Flush (Ns Flush) (12/08/17 16:00) Sodium Chloride 0.9% Flush (Ns Flush) (12/08/17 21:00) Labs Laboratory Tests Test 12/08/17 13:43 White Blood Count 10.1 TH/MM3 Red Blood Count 4.79 MIL/MM3 Hemoglobin 12.2 GM/DL Hematocrit 38.0 % Mean Corpuscular Volume 79.5 FL Mean Corpuscular Hemoglobin 25.5 PG Mean Corpuscular Hemoglobin Concent 32.1 % Red Cell Distribution Width 15.2 % Platelet Count 492 TH/MM3 Mean Platelet Volume 6.4 FL Neutrophils (%) (Auto) 77.0 % Lymphocytes (%) (Auto) 13.5 % Monocytes (%) (Auto) 7.4 % Eosinophils (%) (Auto) 0.8 % Basophils (%) (Auto) 1.3 % Neutrophils # (Auto) 7.8 TH/MM3 Lymphocytes # (Auto) 1.4 TH/MM3 Monocytes # (Auto) 0.7 TH/MM3 Eosinophils # (Auto) 0.1 TH/MM3 Basophils # (Auto) 0.1 TH/MM3 CBC Comment DIFF FINAL Differential Comment Prothrombin Time 19.1 SEC Prothromb Time International Ratio 1.9 RATIO Activated Partial Thromboplast Time 32.2 SEC Blood Urea Nitrogen 9 MG/DL Creatinine 0.89 MG/DL Random Glucose 99 MG/DL Total Protein 6.3 GM/DL Albumin 3.1 GM/DL Calcium Level 7.7 MG/DL Magnesium Level 1.6 MG/DL Alkaline Phosphatase 92 U/L Aspartate Amino Transf (AST/SGOT) 22 U/L Alanine Aminotransferase (ALT/SGPT) 21 U/L Total Bilirubin 0.5 MG/DL Sodium Level 144 MEQ/L Potassium Level 3.1 MEQ/L Chloride Level 107 MEQ/L Carbon Dioxide Level 28.1 MEQ/L Anion Gap 9 MEQ/L Estimat Glomerular Filtration Rate 60 ML/MIN Total Creatine Kinase 57 U/L Troponin I 0.03 NG/ML B-Type Natriuretic Peptide 244 PG/ML MDM Medical Decision Making Medical Screen Exam Complete: Yes Emergency Medical Condition: Yes Medical Record Reviewed: Yes Interpretation(s) Paced rhythm Differential Diagnosis CHf vs COPD vs pneumonia Narrative Course Patient is a 87 year old female who comes in complaining of SOB. Exam shows decreased breath sounds and occasional wheezes. IV established, labs sent. Labs show BNP of 244. CXR concerning for CHF, large pleural effusion on the left. Last 24 hours Impressions Chest X-Ray 12/08/17 1321 Signed Impressions: CONCLUSION: Radiographic pattern suggesting intra-alveolar pulmonary edema and bilateral pleural effusions. Given 3 duonebs, solumedrol, lasix. Potassium replaced. Admitted for further management. Diagnosis Primary Impression: CHF (congestive heart failure) Qualified Codes: I50.21 - Acute systolic (congestive) heart failure Additional Impression: Pleural effusion Admitting Information Admitting Physician Requests: Admit Willa Maher MD December 08, 2017 15:38
--- NOTE | 2017-12-08 15:47 | HHI.HP ---
HPI Service Family Medicine Primary Care Physician Unknown Admission Diagnosis CHF, hypoxia Diagnoses: International Travel<30 Days: No Contact w/Intl Traveler<30days: No Known Affected Area: No History of Present Illness 87-year-old female resident at [facility] with history of A. fib with pacemaker , dementia, anxiety, and depression presents to the ED for shortness of breath. History is limited due to patient being a poor historian. Some of the history provided by nurse at [facility]. Patient states that she has been having worsening shortness of breath for the past 2-3 weeks. She states that this morning she "could not breathe". Nurse reports that her pulse ox at the group home was 78% to 81%. Blood pressure was 160/90. Patient was also endorsing sharp needle-like pain in the left side of her chest. Nurse also states patient has been having nonbloody, watery, foul-smelling diarrhea for the past week. Nurse found patient to be very pale and called her son to take her to the ER. In the ER, patient was satting at 83% on room air, however, O2 sats dropped down to 70%, witnessed by the ED physician. After placing 4L O2 NC , patient O2 sats increased to 98%. Patient states that she is currently not on oxygen at home. She states that she has no history of COPD or CHF. She does have a heavy smoking history. She states that she has smoked 1 pack per day for 60 years. She has had no prior hospitalizations in the past for shortness of breath. Endorses swelling in her lower extremities for the past couple months. She denies orthopnea. She endorses coughing and dry heaving. She denies fevers, headache, vision changes, abdominal pain, and dysuria. PCP is Dr. Matthews. (Nadia Abarca MD R1) Review of Systems Constitutional: COMPLAINS OF: Dizziness, DENIES: Fever, Weight loss, Change in appetite Eyes: DENIES: Diplopia, Eye pain Ears, nose, mouth, throat: DENIES: Running Nose Respiratory: COMPLAINS OF: Cough, Shortness of breath, DENIES: Sputum production Cardiovascular: COMPLAINS OF: Chest pain, Palpitations (associates this with her anxiety), Lower Extremity Edema, DENIES: Orthopnea Gastrointestinal: COMPLAINS OF: Diarrhea, Nausea, DENIES: Abdominal pain, Vomiting Genitourinary: DENIES: Dysuria Musculoskeletal: DENIES: Muscle aches Integumentary: DENIES: Rash Hematologic/lymphatic: DENIES: Lymphadenopathy Neurologic: DENIES: Headache, Localized weakness (Nadia Abarca MD R1) Past Family Social History Past Medical History Depression Dementia Osteoarthritis A. fib Hypothyroidism Pacemaker IBS Bilateral macular degeneration Migraines Past Surgical History Appendectomy Hysterectomy Pacemaker (Nadia Abarca MD R1) Allergies: Coded Allergies: orange juice (Verified Allergy, Mild, Rash, 09/28/17) codeine (Unverified Allergy, Unknown, 09/22/17) MRI PRECAUTION (Verified Adverse Reaction, Severe, NON CONDITIONAL PACEMAKER KMD 09/30/2017, 09/30/17) iINSIGNIA iPLUS BY Agari IMPLANTED 09/24/2007 Family History Mom past away in her 80s from an ND Dad 85, age related Healthy children Social History A school educated 2 years ago 6 children, 14 grandchildren [id number] smoking history Denies alcohol and illicit drug use (Nadia Abarca MD R1) Physical Exam Vital Signs Vital Signs Date Time Temp Pulse Resp B/P (MAP) Pulse Ox O2 Delivery O2 Flow Rate FiO2 12/08/17 13:52 69 26 156/71 (99) 98 Nasal Cannula 2.00 12/08/17 13:29 94 Nasal Cannula 4.00 12/08/17 13:25 70 30 94 Nasal Cannula 4.00 12/08/17 13:24 70 30 94 Nasal Cannula 4.00 12/08/17 13:12 98.1 71 26 178/78 (111) 83 Physical Exam GENERAL: Pleasant, thin, elderly female, in no acute distress SKIN: Stasis dermatitis noted in lower extremities HEAD: Atraumatic. Normocephalic. No temporal or scalp tenderness. EYES: Pupils equal round and reactive. Extraocular motions intact. No scleral icterus. No injection or drainage. ENT: Nose without bleeding, purulent drainage or septal hematoma. Throat without erythema, tonsillar hypertrophy or exudate. Uvula midline. Airway patent. NECK: Trachea midline. No JVD or lymphadenopathy. Supple, nontender, no meningeal signs. CARDIOVASCULAR: Regular rate and rhythm without murmurs, gallops, or rubs. RESPIRATORY: Crackles noted in the lower lung bases. Currently on 4 L oxygen satting at 99% GASTROINTESTINAL: Abdomen soft, non-tender, nondistended. No hepato-splenomegaly , or palpable masses. No guarding. MUSCULOSKELETAL: Nonpitting edema bilaterally in lower extremities. No calf tenderness. Negative Homans sign bilaterally. NEUROLOGICAL: Awake and alert. Cranial nerves II through XII intact. Motor and sensory grossly within normal limits. Five out of 5 muscle strength in all muscle groups. Normal speech. Laboratory Laboratory Tests Test 12/08/17 13:43 White Blood Count 10.1 Red Blood Count 4.79 Hemoglobin 12.2 Hematocrit 38.0 Mean Corpuscular Volume 79.5 Mean Corpuscular Hemoglobin 25.5 Mean Corpuscular Hemoglobin Concent 32.1 Red Cell Distribution Width 15.2 Platelet Count 492 Mean Platelet Volume 6.4 Neutrophils (%) (Auto) 77.0 Lymphocytes (%) (Auto) 13.5 Monocytes (%) (Auto) 7.4 Eosinophils (%) (Auto) 0.8 Basophils (%) (Auto) 1.3 Neutrophils # (Auto) 7.8 Lymphocytes # (Auto) 1.4 Monocytes # (Auto) 0.7 Eosinophils # (Auto) 0.1 Basophils # (Auto) 0.1 CBC Comment DIFF FINAL Differential Comment Prothrombin Time 19.1 Prothromb Time International Ratio 1.9 Activated Partial Thromboplast Time 32.2 Blood Urea Nitrogen 9 Creatinine 0.89 Random Glucose 99 Total Protein 6.3 Albumin 3.1 Calcium Level 7.7 Magnesium Level 1.6 Alkaline Phosphatase 92 Aspartate Amino Transf (AST/SGOT) 22 Alanine Aminotransferase (ALT/SGPT) 21 Total Bilirubin 0.5 Sodium Level 144 Potassium Level 3.1 Chloride Level 107 Carbon Dioxide Level 28.1 Anion Gap 9 Estimat Glomerular Filtration Rate 60 Total Creatine Kinase 57 Troponin I 0.03 B-Type Natriuretic Peptide 244 (Nadia Abarca MD R1) Result Diagram: 12/08/17 1343 12/08/17 1343 Caprini VTE Risk Assessment Caprini VTE Risk Assessment: Mod/High Risk (score >= 2) Caprini Risk Assessment Model Point Value = 1 Point Value = 2 Point Value = 3 Point Value = 5 Age 41-60 Minor surgery BMI > 25 kg/m2 Swollen legs Varicose veins or History of unexplained or recurrent spontaneous Oral contraceptives or hormone replacement Sepsis (< 1 month) Serious lung disease, including pneumonia (< 1 month) Abnormal pulmonary function Acute myocardial infarction Congestive heart failure (< 1 month) History of inflammatory bowel disease Medical patient at bed rest Age 61-74 Arthroscopic surgery Major open surgery (> 45 min) Laparoscopic surgery (> 45 min) Malignancy Confined to bed (> 72 hours) Immobilizing plaster cast Central venous access Age >= 75 History of VTE Family history of VTE Factor V Leiden Prothrombin [id number] Lupus anticoagulant Anticardiolipin antibodies Elevated serum homocysteine Heparin-induced thrombocytopenia Other congenital or acquired thrombophilia Stroke (< 1 month) Elective arthroplasty Hip, pelvis, or leg fracture Acute spinal cord injury (< 1 month) Prophylaxis Regimen Total Risk Factor Score Risk Level Prophylaxis Regimen 0-1 Low Early ambulation 2 Moderate Order ONE of the following: *Sequential Compression Device (SCD) *Heparin 5000 units SQ BID 3-4 Higher Order ONE of the following medications: *Heparin 5000 units SQ TID *Enoxaparin/Lovenox 40 mg SQ daily (WT < 150 kg, CrCl > 30 mL/min) *Enoxaparin/Lovenox 30 mg SQ daily (WT < 150 kg, CrCl > 10-29 mL/min) *Enoxaparin/Lovenox 30 mg SQ BID (WT < 150 kg, CrCl > 30 mL/min) AND/OR *Sequential Compression Device (SCD) 5 or more Highest Order ONE of the following medications: *Heparin 5000 units SQ TID (Preferred with Epidurals) *Enoxaparin/Lovenox 40 mg SQ daily (WT < 150 kg, CrCl > 30 mL/min) *Enoxaparin/Lovenox 30 mg SQ daily (WT < 150 kg, CrCl > 10-29 mL/min) *Enoxaparin/Lovenox 30 mg SQ BID (WT < 150 kg, CrCl > 30 mL/min) AND *Sequential Compression Device (SCD) (Nadia Abarca MD R1) Assessment and Plan Assessment and Plan 87-year-old female resident at [facility] with history of A. fib with pacemaker , dementia, anxiety, and depression presents to the ED for shortness of breath. Code Status DNR Patient states that her son, Silverio Villaseñor, is responsible for making her medical decisions she is unable to. Discussed Condition With Dr. Cho (Nadia Abarca MD R1) Attending Attestation THIS CASE WAS DISCUSSED WITH THE RESIDENT PHYSICIANS. I HAVE REVIEWED THE RECORD AND AGREE WITH THE ABOVE NOTE AND PLAN OF CARE WAS DISCUSSED. I HAVE AUTHORIZED THE ORDER FOR ADMISSION TO AN IN-PATIENT STATUS. (Kendell Lomeli MD) Problem List: (1) SOB (shortness of breath) ICD Codes: R06.02 - Shortness of breath Plan: Patient presenting with hypoxia, tachypnea, and SOB. CHF exacerbation versus COPD exacerbation versus ND versus pneumonia Patient currently requiring 2 L of nasal cannula, satting at 96% Labs & Imaging: Afebrile WBC 10.1 BNP of 244 UA pending Troponin 0.03, EKG demonstrates electronic ventricular pacemaker. 2D echo with Doppler ordered Chest x-ray demonstrates intra-alveolar pulmonary edema and bilateral pleural effusions Plan: s/p 1x dose of 40 mg IV Lasix, Duoneb, and 125 mg of Solu-Medrol IV push once Prednisone 40 mg p.o. daily Furosemide 40 mg p.o. twice daily Duonebs every 4 while awake Continue to trend EKG and troponin every 6h x2 Consider repeat chest x-ray tomorrow Strict I's and O's 2 L/day Fluid restriction (2) Diarrhea ICD Codes: R19.7 - Diarrhea, unspecified Status: Acute Plan: 1 week history of watery, nonbloody, foul-smelling diarrhea Cryptosporidium, enteric path, Giardia, stool WBC, Hemoccult, C. difficile pending Continue home cholestyramine (3) A-fib ICD Codes: I48.91 - Unspecified atrial fibrillation Plan: Patient currently in pacemaker rhythm Digoxin level of 1.0 INR of 1.9 Continue digoxin 0.125 mg p.o. daily Continue warfarin 5 mg p.o. daily (4) Hypokalemia ICD Codes: E87.6 - Hypokalemia Status: Acute Plan: K+ of 3.1 on admission Replace orally Recheck K+ (5) Anxiety ICD Codes: F41.9 - Anxiety disorder, unspecified Status: Chronic Plan: 0.5 mg p.o. every 8 hours Xanax as needed for anxiety 0.5 mg p.o. at bedtime Xanax (6) Depression ICD Codes: F32.9 - Major depressive disorder, single episode, unspecified Status: Chronic Plan: Continue Lexapro 10 mg p.o. daily Continue mirtazapine 15 mg p.o. at bedtime (7) Dementia ICD Codes: F03.90 - Unspecified dementia without behavioral disturbance Status: Chronic Plan: Continue Ropinirole HCl 0.5mg PO BID (8) Hypothyroid ICD Codes: E03.9 - Hypothyroidism, unspecified Status: Chronic (9) Nutrition, metabolism, and development symptoms ICD Codes: R63.8 - Other symptoms and signs concerning food and fluid intake Status: Acute Plan: Diet: Heart healthy Fluids: P.o. hydration Vitals every 4 Strict I's and O's 2 L Fluid restriction High fall risk precautions Points PT and case management consulted DVT ppx: patient on warfarin, SCDs (Nadia Abarca MD R1) Physician Certification 2 Midnight Certification Type: Admission for Inpatient Services Order for Inpatient Services The services are ordered in accordance with Medicare regulations or non- Medicare payer requirements, as applicable. In the case of services not specified as inpatient-only, they are appropriately provided as inpatient services in accordance with the 2-midnight benchmark. Estimated LOS (days): 2 2 days is the estimated time the patient will need to remain in the hospital, assuming treatment plan goals are met and no additional complications. Post-Hospital Plan: Home (Nadia Abarca MD R1) Problem Qualifiers (1) Diarrhea: Qualified Codes: R19.7 - Diarrhea, unspecified (2) A-fib: Qualified Codes: I48.2 - Chronic atrial fibrillation Nadia Abarca MD R1 December 08, 2017 15:47 Kendell Lomeli MD December 09, 2017 12:02
[2017-12-08] MEDS ORDERED: SODIUM CHLORIDE 0.9% FLUSH 10 ML FLUSH IV FLUSH PRN (16:00)
[2017-12-08] MEDS ORDERED: ONDANSETRON HCL 4 MG/2 ML VIAL IVP PRN (16:30)
[2017-12-08] MEDS ORDERED: NALOXONE HCL 0.4 MG/ML AMP IV PUSH PRN (16:30)
--- NOTE | 2017-12-08 16:34 | EKG ---
Date Performed: 12/08/2017 Time Performed: 13:36:30 PTAGE: 87 years EKG: ELECTRONIC VENTRICULAR PACEMAKER ABNORMAL RHYTHM ECG PREVIOUS TRACING : 12/08/2017 13.26 No significant change from previous tracing noted. DOCTOR: Hill Boyd Interpretating Date/Time 12/08/2017 16:33:44
[2017-12-08] MEDS ORDERED: TRIAMCINOLONE ACETONIDE 0.1% CREAM 15 GM TOPICAL PRN (17:00)
[2017-12-08] MEDS ORDERED: ACETAMINOPHEN 325 MG TAB PO PRN (17:00)
[2017-12-08] MEDS ORDERED: hydrOXYzine HCL 25 MG TAB PO PRN (17:00)
--- NOTE | 2017-12-08 17:28 | EKG ---
Date Performed: 12/08/2017 Time Performed: 13:26:09 PTAGE: 87 years EKG: VENTRICULAR PACED RHYTHM PREVIOUS TRACING : 09/28/2017 11.09 Compared to previous tracing, ventricular paced rhyth m has replaced atrial fibrillation. DOCTOR: Hill Boyd Interpretating Date/Time 12/08/2017 17:28:14
[2017-12-08] MEDS: CHOLESTYRAMINE 4 GM PACKET PO SCH (19:34)
[2017-12-08] MEDS: CETIRIZINE HCL 10 MG TAB PO SCH (19:39)
[2017-12-08] MEDS: DIGOXIN 0.125 MG TAB PO SCH (19:39)
[2017-12-08] MEDS: WARFARIN SOD 5 MG TAB PO SCH (19:40)
[2017-12-08] MEDS: SUCRALFATE 1 GM TAB PO SCH (19:40)
[2017-12-08] MEDS: RESP: ALBUTEROL 2.5 MG/IPRATROPIUM 0.5 MG NEB (SCH) NEB (19:54)
[2017-12-08] MEDS: SODIUM CHLORIDE 0.9% FLUSH 10 ML FLUSH IV FLUSH SCH (21:00)
[2017-12-08 21:58] LABS: BILIRUBIN, URINE NEG (NEG); BLOOD, URINE TRACE (NEG); GLUCOSE,URINE NEG (NEG); KETONE, URINE TRACE mg/dL (NEG); MUCUS URINE FEW /lpf (OCC); NITRITE,URINE NEG (NEG); RENAL EPITHELIAL CELLS <1 /hpf; SQUAMOUS EPITHELIAL CELL URINE 1 /hpf (0-5); TRANSITIONAL EPI CELLS, URINE <1 /hpf; URINE COLOR LIGHT-YELLOW (YELLW/STRAW); URINE LEUKOCYTE ESTERASE NEG (NEG)
[2017-12-08] MEDS: FUROSEMIDE 40 MG TAB PO SCH (22:38)
[2017-12-08] MEDS: MIRTAZAPINE 15 MG TAB PO SCH (22:38)
[2017-12-08] MEDS: ALPRAZolam 0.5 MG TAB PO SCH (22:38)
[2017-12-08] MEDS: traMADol HCL 50 MG TAB PO PRN (22:38)
[2017-12-08] MEDS: GABAPENTIN 100 MG CAP PO SCH (22:38)
[2017-12-09] VITALS (11 sets, daily range): BP systolic 91–152; BP diastolic 46–71; PULSE 70–74; RESP 16–20; TEMP 97.6–98.5; O2SAT 91–97
[2017-12-09] MEDS ORDERED: POTASSIUM CHLORIDE 10 MEQ CONTROLLED RELEASE TAB PO ONE
[2017-12-09 04:03] LABS: AUTOMATED NEUTROPHIL # 5.5 TH/MM3 (1.8-7.7); BASOPHIL % 0.4 % (0.0-2.0); HEMATOCRIT 37.8 % (35.0-46.0); HEMOGLOBIN 12.4 GM/DL (11.6-15.3); LYMPHOCYTE # 0.8 TH/MM3 (1.0-4.8); MEAN CELL VOLUME 78.7 FL (80.0-100.0); MEAN CORPUSCULAR HEMOGLOBIN 25.8 PG (27.0-34.0); MEAN CORPUSCULAR HGB CONC 32.8 % (32.0-36.0); MEAN PLATELET VOLUME 6.7 FL (7.0-11.0); MONO % 5.5 % (0.0-8.0); MONOCYTE # 0.4 TH/MM3 (0-0.9); NEUT % 82.1 % (16.0-70.0); PLATELET COUNT 474 TH/MM3 (150-450); RED CELL DISTRIBUTION WIDTH 15.5 % (11.6-17.2); WHITE BLOOD COUNT 6.7 TH/MM3 (4.0-11.0)
[2017-12-09 04:08] LABS: INTERNATIONAL NORMALIZED RATIO 2.2 RATIO
[2017-12-09 04:22] LABS: BICARBONATE 32.4 MEQ/L (21.0-32.0); CALCIUM 7.8 MG/DL (8.5-10.1); CREATININE 0.8 MG/DL (0.50-1.00)
[2017-12-09] MEDS: RESP: ALBUTEROL 2.5 MG/IPRATROPIUM 0.5 MG NEB (SCH) NEB ×4 (07:23→20:16)
--- NOTE | 2017-12-09 07:54 | EKG ---
Date Performed: 12/09/2017 Time Performed: 03:49:16 PTAGE: 87 years EKG: VENTRICULAR PACED RHYTHM ABNORMAL ECG NO PREVIOUS TRACING DOCTOR: Hill Boyd Interpretating Date/Time 12/09/2017 07:52:50
--- NOTE | 2017-12-09 08:05 | EKG ---
Date Performed: 12/08/2017 Time Performed: 23:14:54 PTAGE: 87 years EKG: VENTRICULAR PACED RHYTHM PREVIOUS TRACING : 12/08/2017 23.14 No significant change from previous tracing noted. DOCTOR: Hill Boyd Interpretating Date/Time 12/09/2017 08:03:32
[2017-12-09] MEDS ORDERED: predniSONE 20 MG TAB PO SCH (09:00)
[2017-12-09] MEDS ORDERED: PANTOPRAZOLE SOD 20 MG DELAYED RELEASE TAB PO SCH (09:00)
[2017-12-09] MEDS: CETIRIZINE HCL 10 MG TAB PO SCH (09:02)
[2017-12-09] MEDS: SUCRALFATE 1 GM TAB PO SCH ×3 (09:02→17:33)
[2017-12-09] MEDS: DIGOXIN 0.125 MG TAB PO SCH (09:02)
[2017-12-09] MEDS: FUROSEMIDE 40 MG TAB PO SCH ×2 (09:03→17:36)
[2017-12-09] MEDS: LEVOTHYROXINE SODIUM 88 MCG TAB PO SCH (09:03)
[2017-12-09] MEDS: ESCITALOPRAM OXALATE 10 MG TAB PO SCH (09:03)
[2017-12-09] MEDS: WARFARIN SOD 5 MG TAB PO SCH (09:03)
[2017-12-09] MEDS: SODIUM CHLORIDE 0.9% FLUSH 10 ML FLUSH IV FLUSH SCH ×2 (09:04→20:31)
[2017-12-09] MEDS: CHOLESTYRAMINE 4 GM PACKET PO SCH (09:04)
[2017-12-09] MEDS: ALPRAZolam 0.5 MG TAB PO PRN (11:33)
--- NOTE | 2017-12-09 12:01 | HHI.HP ---
HPI Service Family Medicine Primary Care Physician Unknown Admission Diagnosis CHF, hypoxia Diagnoses: (1) SOB (shortness of breath) (2) Diarrhea (3) A-fib (4) Hypokalemia (5) Anxiety (6) Depression (7) Dementia (8) Hypothyroid (9) Nutrition, metabolism, and development symptoms International Travel<30 Days: No Contact w/Intl Traveler<30days: No Known Affected Area: No History of Present Illness 87-year-old female presenting to the emergency department with acute onset shortness of breath. She is a resident at [facility] and has a history of atrial fibrillation with pacemaker placement, dementia, anxiety, and depression. Per the patient and nursing at her residence she has been having progressive shortness of breath over the last 2-3 weeks. This morning, patient stated that she could not breathe and a pulse ox was done that showed oxygen saturations on room air at 78-81%. She was transported to the emergency department for further evaluation. The patient endorses shortness of breath with occasional chest pain she describes as sharp and substernal. The patient endorses diarrhea that is watery and foul-smelling without blood. The patient endorses lower extremity swelling as well. She denies any fevers or chills, she denies any nausea or vomiting, she denies any vision changes. In the emergency department, chest x-ray showed pulmonary congestion with effusions and she was started on diuresis with Lasix 40 mg IV twice daily. Overnight she did diurese very well and this morning she feels that she is breathing somewhat easier although she still requires 4 L nasal cannula oxygen. She denies any chest pain and states that her diarrhea has resolved. She still feels short of breath but has noted a significant improvement since presentation to the emergency room. Past Family Social History Past Medical History Depression Dementia Osteoarthritis A. fib Hypothyroidism Pacemaker IBS Bilateral macular degeneration Migraines Past Surgical History Appendectomy Hysterectomy Pacemaker Allergies: Coded Allergies: orange juice (Verified Allergy, Mild, Rash, 09/28/17) codeine (Unverified Allergy, Unknown, 09/22/17) MRI PRECAUTION (Verified Adverse Reaction, Severe, NON CONDITIONAL PACEMAKER KMD 09/30/2017, 09/30/17) iINSIGNIA iPLUS BY [employer] IMPLANTED 09/24/2007 Family History Mom past away in her 80s from an AL Dad 85, age related Healthy children Social History A school educated 2 years ago 6 children, 14 grandchildren [id number] smoking history Denies alcohol and illicit drug use Physical Exam Vital Signs Vital Signs Date Time Temp Pulse Resp B/P (MAP) Pulse Ox O2 Delivery O2 Flow Rate FiO2 12/09/17 08:14 97.6 70 18 152/71 (98) 91 12/09/17 07:25 92 Nasal Cannula 4.00 12/09/17 04:40 98.5 71 16 134/69 (90) 92 12/09/17 00:16 98.5 71 16 108/58 (75) 92 12/08/17 23:19 18 12/08/17 20:14 97.8 76 16 124/81 (95) 95 12/08/17 19:54 95 Nasal Cannula 4.00 12/08/17 18:30 97.6 70 16 141/67 (91) 94 12/08/17 17:47 12/08/17 16:31 70 18 149/70 (96) 96 Room Air 12/08/17 14:40 70 18 190/88 (122) 96 Room Air 12/08/17 13:52 69 26 156/71 (99) 98 Nasal Cannula 2.00 12/08/17 13:29 94 Nasal Cannula 4.00 12/08/17 13:25 70 30 94 Nasal Cannula 4.00 12/08/17 13:24 70 30 94 Nasal Cannula 4.00 12/08/17 13:12 98.1 71 26 178/78 (111) 83 Physical Exam GENERAL: Thin, elderly appearing woman lying in bed and appears somewhat uncomfortable. SKIN: No open lesions or rashes ENT: No obvious JVD CARDIOVASCULAR: Regular rate and rhythm without murmurs, gallops, or rubs. RESPIRATORY: Mildly labored breathing with decreased breath sounds bilateral bases, basilar crackles noted. GASTROINTESTINAL: Abdomen soft, non-tender, nondistended. No hepato-splenomegaly , or palpable masses. No guarding. MUSCULOSKELETAL: No evidence of edema of lower extremities today NEUROLOGICAL: Awake and alert. Laboratory Laboratory Tests Test 12/08/17 13:43 12/08/17 20:50 12/08/17 21:00 12/09/17 03:29 White Blood Count 10.1 6.7 Red Blood Count 4.79 4.80 Hemoglobin 12.2 12.4 Hematocrit 38.0 37.8 Mean Corpuscular Volume 79.5 78.7 Mean Corpuscular Hemoglobin 25.5 25.8 Mean Corpuscular Hemoglobin Concent 32.1 32.8 Red Cell Distribution Width 15.2 15.5 Platelet Count 492 474 Mean Platelet Volume 6.4 6.7 Neutrophils (%) (Auto) 77.0 82.1 Lymphocytes (%) (Auto) 13.5 12.0 Monocytes (%) (Auto) 7.4 5.5 Eosinophils (%) (Auto) 0.8 0.0 Basophils (%) (Auto) 1.3 0.4 Neutrophils # (Auto) 7.8 5.5 Lymphocytes # (Auto) 1.4 0.8 Monocytes # (Auto) 0.7 0.4 Eosinophils # (Auto) 0.1 0.0 Basophils # (Auto) 0.1 0.0 CBC Comment DIFF FINAL DIFF FINAL Differential Comment Prothrombin Time 19.1 22.0 Prothromb Time International Ratio 1.9 2.2 Activated Partial Thromboplast Time 32.2 Blood Urea Nitrogen 9 9 Creatinine 0.89 0.80 Random Glucose 99 117 Total Protein 6.3 Albumin 3.1 Calcium Level 7.7 7.8 Magnesium Level 1.6 Alkaline Phosphatase 92 Aspartate Amino Transf (AST/SGOT) 22 Alanine Aminotransferase (ALT/SGPT) 21 Total Bilirubin 0.5 Sodium Level 144 143 Potassium Level 3.1 3.1 3.8 Chloride Level 107 103 Carbon Dioxide Level 28.1 32.4 Anion Gap 9 8 Estimat Glomerular Filtration Rate 60 68 Total Creatine Kinase 57 Troponin I 0.03 LESS THAN 0.02 LESS THAN 0.02 B-Type Natriuretic Peptide 244 Digoxin Level 1.0 Urine Color LIGHT-YELLOW Urine Turbidity CLEAR Urine pH 5.0 Urine Specific [place] 1.006 Urine Protein NEG Urine Glucose (UA) NEG Urine Ketones TRACE Urine Occult Blood TRACE Urine Nitrite NEG Urine Bilirubin NEG Urine Urobilinogen LESS THAN 2.0 Urine Leukocyte Esterase NEG Urine RBC 1 Urine WBC 1 Urine Squamous Epithelial Cells 1 Urine Transitional Epithelial Cells <1 Urine Renal Epithelial Cells <1 Urine Mucus FEW Microscopic Urinalysis Comment CULT NOT INDICATED Result Diagram: 12/09/17 0329 12/09/17 0329 Imaging Last 24 hours Impressions Chest X-Ray 12/08/17 1321 Signed Impressions: CONCLUSION: Radiographic pattern suggesting intra-alveolar pulmonary edema and bilateral pleural effusions. Caprini VTE Risk Assessment Caprini VTE Risk Assessment: Mod/High Risk (score >= 2) Caprini Risk Assessment Model Point Value = 1 Point Value = 2 Point Value = 3 Point Value = 5 Age 41-60 Minor surgery BMI > 25 kg/m2 Swollen legs Varicose veins or History of unexplained or recurrent spontaneous Oral contraceptives or hormone replacement Sepsis (< 1 month) Serious lung disease, including pneumonia (< 1 month) Abnormal pulmonary function Acute myocardial infarction Congestive heart failure (< 1 month) History of inflammatory bowel disease Medical patient at bed rest Age 61-74 Arthroscopic surgery Major open surgery (> 45 min) Laparoscopic surgery (> 45 min) Malignancy Confined to bed (> 72 hours) Immobilizing plaster cast Central venous access Age >= 75 History of VTE Family history of VTE Factor V Leiden Prothrombin [id number] Lupus anticoagulant Anticardiolipin antibodies Elevated serum homocysteine Heparin-induced thrombocytopenia Other congenital or acquired thrombophilia Stroke (< 1 month) Elective arthroplasty Hip, pelvis, or leg fracture Acute spinal cord injury (< 1 month) Prophylaxis Regimen Total Risk Factor Score Risk Level Prophylaxis Regimen 0-1 Low Early ambulation 2 Moderate Order ONE of the following: *Sequential Compression Device (SCD) *Heparin 5000 units SQ BID 3-4 Higher Order ONE of the following medications: *Heparin 5000 units SQ TID *Enoxaparin/Lovenox 40 mg SQ daily (WT < 150 kg, CrCl > 30 mL/min) *Enoxaparin/Lovenox 30 mg SQ daily (WT < 150 kg, CrCl > 10-29 mL/min) *Enoxaparin/Lovenox 30 mg SQ BID (WT < 150 kg, CrCl > 30 mL/min) AND/OR *Sequential Compression Device (SCD) 5 or more Highest Order ONE of the following medications: *Heparin 5000 units SQ TID (Preferred with Epidurals) *Enoxaparin/Lovenox 40 mg SQ daily (WT < 150 kg, CrCl > 30 mL/min) *Enoxaparin/Lovenox 30 mg SQ daily (WT < 150 kg, CrCl > 10-29 mL/min) *Enoxaparin/Lovenox 30 mg SQ BID (WT < 150 kg, CrCl > 30 mL/min) AND *Sequential Compression Device (SCD) Assessment and Plan Assessment and Plan 87-year-old female resident at [facility] with history of A. fib with pacemaker , dementia, anxiety, and depression presents to the ED for shortness of breath. Problem List: (1) Acute exacerbation of congestive heart failure ICD Codes: I50.9 - Heart failure, unspecified Status: Acute Plan: Presentation the patient is obviously fluid overloaded with decompensated heart failure requiring diuresis Diuresis: Lasix 20 mg IV twice daily -Received Lasix 40 mg IV 3 doses Monitor daily weights and strict I's/O's Fluid restriction to 2 L daily Supplemental oxygen as needed to keep oxygen saturation greater than 93% Duo nebs every 4 hours while awake as needed Pulmonary toilet BNP 244 Troponins normal 3 Physical therapy to evaluate patient 2D echocardiogram ordered and pending (2) Hypoxia ICD Codes: R09.02 - Hypoxemia Status: Acute Plan: CHF exacerbation with possible COPD component -Received Solu-Medrol 125 mg 1 in the emergency department and 40 mg p.o. 1 No evidence of wheezing or obstructed air movement on exam, discontinue corticosteroids today Continue with supplemental oxygen as needed to keep oxygen saturations greater than 93% (3) Diarrhea ICD Codes: R19.7 - Diarrhea, unspecified Status: Acute Plan: Stool studies pending: Cryptosporidium, enteric path, Giardia, stool WBC, Hemoccult, C. difficile pending Continue home cholestyramine (4) A-fib ICD Codes: I48.91 - Unspecified atrial fibrillation Plan: Patient currently in pacemaker rhythm Digoxin level of 1.0 INR of 1.9 Continue digoxin 0.125 mg p.o. daily Continue warfarin 5 mg p.o. daily (5) Hypokalemia ICD Codes: E87.6 - Hypokalemia Status: Acute Plan: K+ of 3.1 on admission Replace orally Recheck K+ (6) Anxiety ICD Codes: F41.9 - Anxiety disorder, unspecified Status: Chronic Plan: 0.5 mg p.o. every 8 hours Xanax as needed for anxiety 0.5 mg p.o. at bedtime Xanax (7) Depression ICD Codes: F32.9 - Major depressive disorder, single episode, unspecified Status: Chronic Plan: Continue Lexapro 10 mg p.o. daily Continue mirtazapine 15 mg p.o. at bedtime (8) Dementia ICD Codes: F03.90 - Unspecified dementia without behavioral disturbance Status: Chronic Plan: Continue Ropinirole HCl 0.5mg PO BID (9) Hypothyroid ICD Codes: E03.9 - Hypothyroidism, unspecified Status: Chronic (10) Nutrition, metabolism, and development symptoms ICD Codes: R63.8 - Other symptoms and signs concerning food and fluid intake Status: Acute Plan: Diet: Heart healthy Fluids: P.o. hydration Vitals every 4 Strict I's and O's 2 L Fluid restriction High fall risk precautions Counselor PT and case management consulted DVT ppx: patient on warfarin, SCDs Physician Certification 2 Midnight Certification Type: Admission for Inpatient Services Order for Inpatient Services The services are ordered in accordance with Medicare regulations or non- Medicare payer requirements, as applicable. In the case of services not specified as inpatient-only, they are appropriately provided as inpatient services in accordance with the 2-midnight benchmark. Estimated LOS (days): 2 2 days is the estimated time the patient will need to remain in the hospital, assuming treatment plan goals are met and no additional complications. Post-Hospital Plan: Not yet determined Problem Qualifiers (1) Diarrhea: Qualified Codes: R19.7 - Diarrhea, unspecified (2) A-fib: Qualified Codes: I48.2 - Chronic atrial fibrillation (3) Acute exacerbation of congestive heart failure: Qualified Codes: I50.9 - Heart failure, unspecified Kendell Lomeli MD December 09, 2017 12:01
[2017-12-09] MEDS ORDERED: MEMANTINE DONEPEZIL PO SCH (17:00)
[2017-12-09] MEDS: GABAPENTIN 100 MG CAP PO SCH (17:33)
[2017-12-09] MEDS: traMADol HCL 50 MG TAB PO PRN (17:34)
[2017-12-09] MEDS: ALPRAZolam 0.5 MG TAB PO SCH (20:31)
[2017-12-09] MEDS: MIRTAZAPINE 15 MG TAB PO SCH (20:31)
[2017-12-10] VITALS (10 sets, daily range): BP systolic 106–135; BP diastolic 58–66; PULSE 69–159; RESP 17–20; TEMP 97.5–98.7; O2SAT 92–97
[2017-12-10 04:37] LABS: HEMATOCRIT 33.8 % (35.0-46.0); HEMOGLOBIN 11.1 GM/DL (11.6-15.3); MEAN CELL VOLUME 79.2 FL (80.0-100.0); MEAN CORPUSCULAR HGB CONC 32.8 % (32.0-36.0); MEAN PLATELET VOLUME 6.7 FL (7.0-11.0); PLATELET COUNT 402 TH/MM3 (150-450); RED BLOOD COUNT 4.26 MIL/MM3 (4.00-5.30); RED CELL DISTRIBUTION WIDTH 15.3 % (11.6-17.2); WHITE BLOOD COUNT 10.2 TH/MM3 (4.0-11.0)
[2017-12-10 04:55] LABS: INTERNATIONAL NORMALIZED RATIO 3.6 RATIO; PROTHROMBIN TIME - PATIENT 36.1 SEC (9.8-11.6)
[2017-12-10 05:01] LABS: BICARBONATE 30.9 MEQ/L (21.0-32.0); CALCIUM 7.9 MG/DL (8.5-10.1); CREATININE 0.83 MG/DL (0.50-1.00)
[2017-12-10] MEDS: RESP: ALBUTEROL 2.5 MG/IPRATROPIUM 0.5 MG NEB (SCH) NEB ×4 (07:56→20:27)
[2017-12-10] MEDS ORDERED: POTASSIUM CHLORIDE 20 MEQ CONTROLLED RELEASE TAB PO ONE (08:00)
[2017-12-10] MEDS: DIGOXIN 0.125 MG TAB PO SCH (09:30)
[2017-12-10] MEDS: WARFARIN SOD 5 MG TAB PO SCH (09:31)
[2017-12-10] MEDS: SUCRALFATE 1 GM TAB PO SCH ×3 (09:31→18:00)
[2017-12-10] MEDS: CETIRIZINE HCL 10 MG TAB PO SCH (09:31)
[2017-12-10] MEDS: ESCITALOPRAM OXALATE 10 MG TAB PO SCH (09:31)
[2017-12-10] MEDS: LEVOTHYROXINE SODIUM 88 MCG TAB PO SCH (09:31)
[2017-12-10] MEDS: FUROSEMIDE 40 MG TAB PO SCH ×2 (09:31→18:00)
[2017-12-10] MEDS: CHOLESTYRAMINE 4 GM PACKET PO SCH (09:32)
[2017-12-10] MEDS: SODIUM CHLORIDE 0.9% FLUSH 10 ML FLUSH IV FLUSH SCH ×2 (09:32→21:00)
--- NOTE | 2017-12-10 10:15 | HHI.FPPN ---
Subjective Remarks No acute events overnight. Patient sitting up in bed eating breakfast. Patient reports that she is doing very well and breathing a lot better. Currently on 4 L nasal cannula. Wean oxygen as tolerated. She denies chest pain, shortness of breath, abdominal pain, nausea vomiting. No recorded bowel movements. (Nadia Abarca MD R1) Objective Vitals Vital Signs Date Time Temp Pulse Resp B/P (MAP) Pulse Ox O2 Delivery O2 Flow Rate FiO2 12/10/17 07:58 96 Nasal Cannula 4.00 12/10/17 07:40 97.5 70 18 131/66 (87) 94 12/10/17 04:27 98.3 70 17 112/58 (76) 92 12/10/17 03:15 69 12/10/17 00:30 69 12/09/17 23:19 98.4 71 17 91/49 (63) 93 12/09/17 20:17 97 Nasal Cannula 4.00 12/09/17 20:01 98.5 71 17 96/46 (63) 95 12/09/17 18:39 22 12/09/17 15:43 70 12/09/17 15:36 97.8 73 19 123/60 (81) 93 12/09/17 12:22 97.8 73 20 130/64 (86) 91 I/O 12/09/17 12/09/17 12/09/17 12/10/17 12/10/17 12/10/17 07:00 15:00 23:00 07:00 15:00 23:00 Intake Total 200 ml 720 ml Output Total 500 ml 1000 ml Balance 200 ml -500 ml -280 ml Intake Oral 200 ml 720 ml Output Urine Total 500 ml 1000 ml # Voids 1 # Bowel Movements 0 (Nadia Abarca MD R1) Result Diagram: 12/10/17 0358 12/10/17 0358 Objective Remarks GENERAL: Pleasant, thin, elderly female, in no acute distress SKIN: Stasis dermatitis noted in lower extremities NECK: Trachea midline. No JVD or lymphadenopathy. Supple, nontender, no meningeal signs. CARDIOVASCULAR:irregular rate and rhythm RESPIRATORY: Good air movement. No crackles heard. Clear to auscultation bilaterally. Currently on 4 L oxygen satting at 99% GASTROINTESTINAL: Abdomen soft, non-tender, nondistended. No hepato-splenomegaly , or palpable masses. No guarding. MUSCULOSKELETAL: Nonpitting edema bilaterally in lower extremities. No calf tenderness. Negative Homans sign bilaterally. NEUROLOGICAL: Awake and alert. Oriented 3. Normal speech. (Nadia Abarca MD R1) A/P Assessment and Plan 87-year-old female resident at [facility] with history of A. fib with pacemaker , dementia, anxiety, and depression presents to the ED for shortness of breath. Discharge Planning Patient will need PT at rehab She is a resident at [facility] Wean oxygen as tolerated Home walk test Improving clinically Possible discharge today (Nadia Abarca MD R1) Attending Attestation Patient examined independently and case discussed with resident physicians I have read the above note and agree with the assessment/plan as discussed with me I was involved in all medical decision making for this patient CHF exacerbation: -Transition to oral corticosteroids with Lasix 20 mg p.o. twice daily -Continue to monitor daily weights and I's/O's -Walk test today to evaluate for oxygen need -Possible discharge today if able to set up therapy and oxygen Kendell Lomeli MD (Kendell Lomeli MD) Problem List: (1) Acute exacerbation of congestive heart failure ICD Codes: I50.9 - Heart failure, unspecified Status: Acute Plan: Presentation the patient is obviously fluid overloaded with decompensated heart failure requiring diuresis Diuresis: Lasix 20 mg IV twice daily -Received Lasix 40 mg IV 3 doses Monitor daily weights and strict I's/O's Fluid restriction to 2 L daily Supplemental oxygen as needed to keep oxygen saturation greater than 93% Duo nebs every 4 hours while awake as needed Pulmonary toilet BNP 244 Troponins normal 3 PT recommended patient will need rehab 2D echocardiogram pending (2) Hypoxia ICD Codes: R09.02 - Hypoxemia Status: Acute Plan: CHF exacerbation with COPD component Continue with supplemental oxygen as needed to keep oxygen saturations greater than 92%, wean as tolerated Home walk test pending -Received Solu-Medrol 125 mg 1 in the emergency department and 40 mg p.o. 1 No evidence of wheezing or obstructed air movement on exam, discontinued corticosteroids (3) Diarrhea ICD Codes: R19.7 - Diarrhea, unspecified Status: Acute Plan: Stool studies pending: Cryptosporidium, enteric path, Giardia, stool WBC, Hemoccult, C. difficile pending Continue home cholestyramine Patient has not yet had a bowel movement since admission (4) A-fib ICD Codes: I48.91 - Unspecified atrial fibrillation Plan: Patient currently in pacemaker rhythm Digoxin level of 1.0 INR 3.6 today Continue digoxin 0.125 mg p.o. daily Continue warfarin 5 mg p.o. daily (5) Hypokalemia ICD Codes: E87.6 - Hypokalemia Status: Acute Plan: K+ of 3.1 on admission Potassium of 3.1 today Replace orally (6) Anxiety ICD Codes: F41.9 - Anxiety disorder, unspecified Status: Chronic Plan: 0.5 mg p.o. every 8 hours Xanax as needed for anxiety 0.5 mg p.o. at bedtime Xanax (7) Depression ICD Codes: F32.9 - Major depressive disorder, single episode, unspecified Status: Chronic Plan: Continue Lexapro 10 mg p.o. daily Continue mirtazapine 15 mg p.o. at bedtime (8) Dementia ICD Codes: F03.90 - Unspecified dementia without behavioral disturbance Status: Chronic Plan: Continue Ropinirole HCl 0.5mg PO BID (9) Hypothyroid ICD Codes: E03.9 - Hypothyroidism, unspecified Status: Chronic Plan: Continue levothyroxine 88 MCG p.o. daily (10) Nutrition, metabolism, and development symptoms ICD Codes: R63.8 - Other symptoms and signs concerning food and fluid intake Status: Acute Plan: Diet: Heart healthy Fluids: P.o. hydration Vitals every 4 Strict I's and O's 2 L Fluid restriction High fall risk precaution, PT and case management consulted DVT ppx: patient on warfarin, SCDs (Nadia Abarca MD R1) Problem Qualifiers (1) Acute exacerbation of congestive heart failure: Qualified Codes: I50.9 - Heart failure, unspecified (2) Diarrhea: Qualified Codes: R19.7 - Diarrhea, unspecified (3) A-fib: Qualified Codes: I48.2 - Chronic atrial fibrillation Nadia Abarca MD R1 December 10, 2017 10:15 Kendell Lomeli MD December 10, 2017 13:16
--- NOTE | 2017-12-10 11:27 | ECHRPT ---
Indication: HEART FAILURE CONCLUSIONS The left ventricular systolic function is normal with an estimated ejection fraction in the range of 55-60%. Mild mitral valve regurgitation. Trace aortic valve regurgitation. There is mild to moderate tricuspid valve regurgitation. A moderate left sided pleural effusion is noted. BP: / HR: Rhythm: Sinus MEASUREMENTS (Male / Female) Normal Values Technical Quality:Good 2D ECHO LV Diastolic Diameter PLAX 4.6 cm 4.2 - 5.9 / 3.9 - 5.3 cm LV Systolic Diameter PLAX 3.6 cm IVS Diastolic Thickness 1.3 cm 0.6 - 1.0 / 0.6 - 0.9 cm LVPW Diastolic Thickness 0.7 cm 0.6 - 1.0 / 0.6 - 0.9 cm LV Relative Wall Thickness 0.4 RV Internal Dim ED PLAX 2.1 cm LA Systolic Diameter LX 4.4 cm 3.0 - 4.0 / 2.7 - 3.8 cm M-MODE AV Cusp Separation MM 1.4 cm DOPPLER MR Peak Velocity 448.0 cm/s MR Peak Gradient 80.3 mmHg Mitral E Point Velocity 134.0 cm/s Mitral A Point Velocity 28.1 cm/s Mitral E to A Ratio 4.8 TR Peak Velocity 306.0 cm/s TR Peak Gradient 37.5 mmHg Right Atrial Pressure 5.0 mmHg Pulmonary Artery Systolic Pressu 42.5 mmHg Right Ventricular Systolic Press 42.5 mmHg FINDINGS LEFT VENTRICLE The left ventricular systolic function is normal with an estimated ejection fraction in the range of 55-60%. Normal left ventricular size. There is assymetric septal hypertrophy. No regional wall motion abnormalities are present. RIGHT VENTRICLE Grossly normal A pacemaker wire is noted. LEFT ATRIUM The left atrial size is moderately dilated. RIGHT ATRIUM The right atrial size is [id number] dilated. ATRIAL SEPTUM Normal atrial septal thickness without atrial level shunting by limited color doppler interrogation. AORTA The aortic root and proximal ascending aorta are normal in size on limited imaging. MITRAL VALVE Structurally normal mitral valve. Mild mitral valve regurgitation. No mitral valve stenosis. AORTIC VALVE Trileaflet aortic valve. Trace aortic valve regurgitation. No aortic valve stenosis. TRICUSPID VALVE Structurally normal tricuspid valve. There is mild to moderate tricuspid valve regurgitation. The estimated pulmonary arterial pressure is 42.5 mmHg. PULMONARY VALVE No pulmonary valve regurgitation or stenosis. VESSELS The inferior vena cava is normal in size. PERICARDIUM A moderate left sided pleural effusion is noted. Stuart Haas DO (Electronically Signed) Final Date:10 Dec 2017 11:26
[2017-12-10] MEDS ORDERED: OXYGENDME NAS.CANULA (12:57)
[2017-12-10] MEDS ORDERED: FURO1TAB60 PO (12:58)
--- NOTE | 2017-12-10 13:04 | HHI.FF ---
Face to Face Verification Diagnosis: (1) Acute exacerbation of congestive heart failure (2) A-fib Physical Therapy Order: Evaluate and Treat, Improve ambulation, Strength and gait training Home Health Nursing Order: Medical education Signs/symptoms of disease process Oxygen administration education I have seen patient Shakila Villaseñor on 12/10/17. My clinical findings support the need for the requested home health care services because: Ltd mobility - disease progression Patient has SOB Deconditioned w/ increased weakness Limited ability to care for self High risk of falls I certify that my clinical findings support that this patient is homebound because: Impaired cognitive ability/safety Hx COPD- exertion dyspnea/weakness Unsteady gait/balance Unsafe to leave home unassisted Nadia Abarca MD R1 December 10, 2017 13:04
--- NOTE | 2017-12-10 13:05 | HHI.DS ---
Discharge Summary Admission Date December 09, 2017 at 10:54 Admitting Diagnosis CHF, hypoxia (1) Acute exacerbation of congestive heart failure Plan: Presentation the patient is obviously fluid overloaded with decompensated heart failure requiring diuresis Diuresis: Lasix 20 mg IV twice daily -Received Lasix 40 mg IV 3 doses Monitor daily weights and strict I's/O's Fluid restriction to 2 L daily Supplemental oxygen as needed to keep oxygen saturation greater than 93% Duo nebs every 4 hours while awake as needed Pulmonary toilet BNP 244 Troponins normal 3 PT recommended patient will need rehab 2D echocardiogram pending ICD Codes: I50.9 - Heart failure, unspecified Status: Acute (2) Hypoxia Plan: CHF exacerbation with COPD component Continue with supplemental oxygen as needed to keep oxygen saturations greater than 92%, wean as tolerated Home walk test pending -Received Solu-Medrol 125 mg 1 in the emergency department and 40 mg p.o. 1 No evidence of wheezing or obstructed air movement on exam, discontinued corticosteroids ICD Codes: R09.02 - Hypoxemia Status: Acute (3) Diarrhea Plan: Stool studies pending: Cryptosporidium, enteric path, Giardia, stool WBC, Hemoccult, C. difficile pending Continue home cholestyramine Patient has not yet had a bowel movement since admission ICD Codes: R19.7 - Diarrhea, unspecified Status: Acute (4) A-fib Plan: Patient currently in pacemaker rhythm Digoxin level of 1.0 INR 3.6 today Continue digoxin 0.125 mg p.o. daily Continue warfarin 5 mg p.o. daily ICD Codes: I48.91 - Unspecified atrial fibrillation (5) Hypokalemia Plan: K+ of 3.1 on admission Potassium of 3.1 today Replace orally ICD Codes: E87.6 - Hypokalemia Status: Acute (6) Anxiety Plan: 0.5 mg p.o. every 8 hours Xanax as needed for anxiety 0.5 mg p.o. at bedtime Xanax ICD Codes: F41.9 - Anxiety disorder, unspecified Status: Chronic (7) Depression Plan: Continue Lexapro 10 mg p.o. daily Continue mirtazapine 15 mg p.o. at bedtime ICD Codes: F32.9 - Major depressive disorder, single episode, unspecified Status: Chronic (8) Dementia Plan: Continue Ropinirole HCl 0.5mg PO BID ICD Codes: F03.90 - Unspecified dementia without behavioral disturbance Status: Chronic (9) Hypothyroid Plan: Continue levothyroxine 88 MCG p.o. daily ICD Codes: E03.9 - Hypothyroidism, unspecified Status: Chronic (10) Nutrition, metabolism, and development symptoms Plan: Diet: Heart healthy Fluids: P.o. hydration Vitals every 4 Strict I's and O's 2 L Fluid restriction High fall risk precaution, PT and case management consulted DVT ppx: patient on warfarin, SCDs ICD Codes: R63.8 - Other symptoms and signs concerning food and fluid intake Status: Acute Brief History 87-year-old female presenting to the emergency department with acute onset shortness of breath. She is a resident at [facility] and has a history of atrial fibrillation with pacemaker placement, dementia, anxiety, and depression. Per the patient and nursing at her residence she has been having progressive shortness of breath over the last 2-3 weeks. This morning, patient stated that she could not breathe and a pulse ox was done that showed oxygen saturations on room air at 78-81%. She was transported to the emergency department for further evaluation. The patient endorses shortness of breath with occasional chest pain she describes as sharp and substernal. The patient endorses diarrhea that is watery and foul-smelling without blood. The patient endorses lower extremity swelling as well. She denies any fevers or chills, she denies any nausea or vomiting, she denies any vision changes. In the emergency department, chest x-ray showed pulmonary congestion with effusions and she was started on diuresis with Lasix 40 mg IV twice daily. Overnight she did diurese very well and this morning she feels that she is breathing somewhat easier although she still requires 4 L nasal cannula oxygen. She denies any chest pain and states that her diarrhea has resolved. She still feels short of breath but has noted a significant improvement since presentation to the emergency room. CBC/BMP: 12/10/17 0358 12/10/17 0358 Significant Findings Laboratory Tests Test 12/08/17 13:43 12/08/17 20:50 12/08/17 21:00 12/09/17 03:29 Mean Corpuscular Volume 79.5 FL (80.0-100.0) 78.7 FL (80.0-100.0) Mean Corpuscular Hemoglobin 25.5 PG (27.0-34.0) 25.8 PG (27.0-34.0) Platelet Count 492 TH/MM3 (150-450) 474 TH/MM3 (150-450) Mean Platelet Volume 6.4 FL (7.0-11.0) 6.7 FL (7.0-11.0) Neutrophils (%) (Auto) 77.0 % (16.0-70.0) 82.1 % (16.0-70.0) Neutrophils # (Auto) 7.8 TH/MM3 (1.8-7.7) Prothrombin Time 19.1 SEC (9.8-11.6) 22.0 SEC (9.8-11.6) Activated Partial Thromboplast Time 32.2 SEC (24.3-30.1) Total Protein 6.3 GM/DL (6.4-8.2) Albumin 3.1 GM/DL (3.4-5.0) Calcium Level 7.7 MG/DL (8.5-10.1) 7.8 MG/DL (8.5-10.1) Potassium Level 3.1 MEQ/L (3.5-5.1) 3.1 MEQ/L (3.5-5.1) Estimat Glomerular Filtration Rate 60 ML/MIN (>89) 68 ML/MIN (>89) B-Type Natriuretic Peptide 244 PG/ML (0-100) Troponin I LESS THAN 0.02 NG/ML LESS THAN 0.02 NG/ML Urine Ketones TRACE mg/dL (NEG) Urine Occult Blood TRACE (NEG) Urine Mucus FEW /lpf (OCC) Lymphocytes # (Auto) 0.8 TH/MM3 (1.0-4.8) Random Glucose 117 MG/DL (74-106) Carbon Dioxide Level 32.4 MEQ/L (21.0-32.0) Test 12/10/17 03:58 Hemoglobin 11.1 GM/DL (11.6-15.3) Hematocrit 33.8 % (35.0-46.0) Mean Corpuscular Volume 79.2 FL (80.0-100.0) Mean Corpuscular Hemoglobin 26.0 PG (27.0-34.0) Mean Platelet Volume 6.7 FL (7.0-11.0) Prothrombin Time 36.1 SEC (9.8-11.6) Calcium Level 7.9 MG/DL (8.5-10.1) Potassium Level 3.1 MEQ/L (3.5-5.1) Estimat Glomerular Filtration Rate 65 ML/MIN (>89) PE at Discharge GENERAL: Pleasant, thin, elderly female, in no acute distress SKIN: Stasis dermatitis noted in lower extremities NECK: Trachea midline. No JVD or lymphadenopathy. Supple, nontender, no meningeal signs. CARDIOVASCULAR:irregular rate and rhythm RESPIRATORY: Good air movement. No crackles heard. Clear to auscultation bilaterally. Currently on 4 L oxygen satting at 99% GASTROINTESTINAL: Abdomen soft, non-tender, nondistended. No hepato-splenomegaly , or palpable masses. No guarding. MUSCULOSKELETAL: Nonpitting edema bilaterally in lower extremities. No calf tenderness. Negative Homans sign bilaterally. NEUROLOGICAL: Awake and alert. Oriented 3. Normal speech. Nadia Abarca MD R1 December 10, 2017 13:05
--- NOTE | 2017-12-10 13:06 | HHI.DCPOC ---
Discharge Care Plan Diagnosis: (1) Acute exacerbation of congestive heart failure (2) A-fib Goals to Promote Your Health * To prevent worsening of your condition and complications * To maintain your health at the optimal level Directions to Meet Your Goals Take your medications as prescribed Follow your dietary instruction Follow activity as directed Keep your appointments as scheduled Take your immunizations and boosters as scheduled If your symptoms worsen call your PCP, if no PCP go to Urgent Care Center or Emergency Room Smoking is Dangerous to Your Health. Avoid second hand smoke Call the 24-hour hour crisis hotline for domestic abuse at Nadia Abarca MD R1 December 10, 2017 13:06
[2017-12-10] MEDS: ALPRAZolam 0.5 MG TAB PO PRN (15:07)
[2017-12-10] MEDS ORDERED: LOPERAMIDE HCL 2 MG CAP PO PRN (18:45)
[2017-12-10] MEDS: MIRTAZAPINE 15 MG TAB PO SCH (21:00)
[2017-12-10] MEDS: ALPRAZolam 0.5 MG TAB PO SCH (21:51)
[2017-12-10] MEDS: GABAPENTIN 100 MG CAP PO SCH (21:51)
[2017-12-11] VITALS (8 sets, daily range): BP systolic 102–132; BP diastolic 52–62; PULSE 70–88; RESP 18; TEMP 97.3–98.6; O2SAT 92–98
[2017-12-11] MEDS: LEVOTHYROXINE SODIUM 88 MCG TAB PO SCH (06:56)
[2017-12-11 07:10] LABS: HEMATOCRIT 36.8 % (35.0-46.0); HEMOGLOBIN 11.9 GM/DL (11.6-15.3); MEAN CELL VOLUME 80.4 FL (80.0-100.0); MEAN CORPUSCULAR HGB CONC 32.3 % (32.0-36.0); MEAN PLATELET VOLUME 6.7 FL (7.0-11.0); PLATELET COUNT 403 TH/MM3 (150-450); RED BLOOD COUNT 4.58 MIL/MM3 (4.00-5.30); RED CELL DISTRIBUTION WIDTH 15.5 % (11.6-17.2); WHITE BLOOD COUNT 9.2 TH/MM3 (4.0-11.0)
[2017-12-11 07:11] LABS: INTERNATIONAL NORMALIZED RATIO 3.3 RATIO
[2017-12-11 07:29] LABS: BICARBONATE 34.3 MEQ/L (21.0-32.0); CALCIUM 7.7 MG/DL (8.5-10.1); CREATININE 0.94 MG/DL (0.50-1.00)
[2017-12-11] MEDS: RESP: ALBUTEROL 2.5 MG/IPRATROPIUM 0.5 MG NEB (SCH) NEB ×4 (07:31→19:17)
[2017-12-11] MEDS ORDERED: POTA-163 PO (08:52)
[2017-12-11] MEDS ORDERED: POTASSIUM CHLORIDE 10 MEQ CONTROLLED RELEASE TAB PO ONE (09:00)
--- NOTE | 2017-12-11 09:59 | HHI.FPPN ---
Subjective Remarks Patient was examined this morning, lying in bed. Nurse at bedside states there were no issues overnight. Patient states that she slept very well. She has never been on oxygen but understands that she will be discharged back to her [facility] with oxygen. She has no issues with eating breakfast. She denies fever or chills, or shortness of breath. (Abi Cho MD R2) Objective Vitals Vital Signs Date Time Temp Pulse Resp B/P (MAP) Pulse Ox O2 Delivery O2 Flow Rate FiO2 12/11/17 07:33 96 Nasal Cannula 3.00 12/11/17 07:21 97.3 70 18 102/52 (69) 94 12/11/17 04:00 97.8 70 18 111/58 (75) 92 12/11/17 00:00 98.3 70 18 102/53 (69) 92 12/10/17 20:29 96 Nasal Cannula 3.00 12/10/17 20:00 97.9 84 18 106/59 (75) 97 12/10/17 16:20 98.7 85 18 120/58 (78) 95 12/10/17 12:17 2.00 12/10/17 11:52 98.5 73 20 135/61 (85) 93 I/O 12/10/17 12/10/17 12/10/17 12/11/17 12/11/17 12/11/17 07:00 15:00 23:00 07:00 15:00 23:00 Intake Total 805 ml 120 ml Output Total 300 ml 300 ml Balance 505 ml -180 ml Intake Oral 805 ml 120 ml Output Urine Total 300 ml 300 ml # Voids 1 (Abi Cho MD R2) Result Diagram: 12/11/17 0609 12/11/17 0609 Objective Remarks GENERAL: Pleasant, thin, elderly female, in no acute distress SKIN: Stasis dermatitis noted in lower extremities NECK: Trachea midline. No JVD or lymphadenopathy. Supple, nontender, no meningeal signs. CARDIOVASCULAR:irregular rate and rhythm RESPIRATORY: Good air movement. No crackles heard. Clear to auscultation bilaterally. Currently on 3 L oxygen satting at 96% GASTROINTESTINAL: Abdomen soft, non-tender, nondistended. No hepato-splenomegaly , or palpable masses. No guarding. MUSCULOSKELETAL: Nonpitting edema bilaterally in lower extremities. No calf tenderness. NEUROLOGICAL: Awake and alert. Oriented 3. Normal speech. (Abi Cho MD R2) A/P Assessment and Plan 87-year-old female resident at [facility] with history of A. fib with pacemaker , dementia, anxiety, and depression presents to the ED for shortness of breath found to have an acute CHF exacerbation Discharge Planning Patient will need PT at rehab She is a resident at [facility] Failed home oxygen walk test and will be discharged with oxygen Improving clinically Discharged to [facility] today (Abi Cho MD R2) Attending Attestation Patient examined independently and case discussed with resident physicians I have read the above note and agree with the assessment/plan as discussed with me I was involved in all medical decision making for this patient Kendell Lomeli MD (Kendell Lomeli MD) Problem List: (1) Acute exacerbation of congestive heart failure ICD Codes: I50.9 - Heart failure, unspecified Status: Acute Plan: Patient was obviously fluid overloaded with decompensated heart failure requiring diuresis on presentation to the ED Diuresis: Continue Lasix 20 p.o. twice daily -Monitor daily weights and strict I's/O's Fluid restriction to 2 L daily Supplemental oxygen as needed to keep oxygen saturation greater than 93% Duo nebs every 4 hours while awake as needed Pulmonary toilet BNP 244 Troponins normal 3 PT recommended patient will need rehab 2D echocardiogram on 12/11/27 shows normal left ventricular systolic function with an estimated EF of 55-60%. Mild mitral valve regurgitation. Trace aortic valve regurgitation. Mild to moderate tricuspid valve regurgitation. A moderate left-sided pleural effusion noted. (2) Hypoxia ICD Codes: R09.02 - Hypoxemia Status: Acute Plan: CHF exacerbation with COPD component Continue with supplemental oxygen as needed to keep oxygen saturations greater than 92% Failed home oxygen walk test, will be discharged with oxygen (3) Diarrhea ICD Codes: R19.7 - Diarrhea, unspecified Status: Acute Plan: Stool studies pending: Cryptosporidium, enteric path, Giardia, stool WBC, Hemoccult, C. difficile pending -Reportedly had 2 bowel movements but nurse was unable to Continue home cholestyramine (4) A-fib ICD Codes: I48.91 - Unspecified atrial fibrillation Plan: Patient currently in pacemaker rhythm Digoxin level of 1.0 on admission INR 3.3 today Continue digoxin 0.125 mg p.o. daily Continue warfarin 5 mg p.o. daily (5) Hypokalemia ICD Codes: E87.6 - Hypokalemia Status: Acute Plan: K+ of 3.1 on admission Potassium of 3.3 today Replace orally Discharge with potassium supplementation (6) Anxiety ICD Codes: F41.9 - Anxiety disorder, unspecified Status: Chronic Plan: 0.5 mg p.o. every 8 hours Xanax as needed for anxiety 0.5 mg p.o. at bedtime Xanax (7) Depression ICD Codes: F32.9 - Major depressive disorder, single episode, unspecified Status: Chronic Plan: Continue Lexapro 10 mg p.o. daily Continue mirtazapine 15 mg p.o. at bedtime (8) Dementia ICD Codes: F03.90 - Unspecified dementia without behavioral disturbance Status: Chronic Plan: Continue Ropinirole HCl 0.5mg PO BID (9) Hypothyroid ICD Codes: E03.9 - Hypothyroidism, unspecified Status: Chronic Plan: Continue levothyroxine 88 MCG p.o. daily (10) Nutrition, metabolism, and development symptoms ICD Codes: R63.8 - Other symptoms and signs concerning food and fluid intake Status: Acute Plan: Diet: Heart healthy Fluids: P.o. hydration Vitals every 4 Strict I's and O's 2 L Fluid restriction High fall risk precaution, PT and case management on board DVT ppx: patient on warfarin, SCDs Seen and examined with Rhona Matt, MS-4 (Abi Cho MD R2) Problem Qualifiers (1) Acute exacerbation of congestive heart failure: Qualified Codes: I50.9 - Heart failure, unspecified (2) Diarrhea: Qualified Codes: R19.7 - Diarrhea, unspecified (3) A-fib: Qualified Codes: I48.2 - Chronic atrial fibrillation Abi Cho MD R2 December 11, 2017 09:59 Kendell Lomeli MD December 11, 2017 16:20
[2017-12-11] MEDS: SUCRALFATE 1 GM TAB PO SCH ×3 (11:19→18:10)
[2017-12-11] MEDS: DIGOXIN 0.125 MG TAB PO SCH (11:21)
[2017-12-11] MEDS: FUROSEMIDE 40 MG TAB PO SCH ×2 (11:21→18:08)
[2017-12-11] MEDS: ESCITALOPRAM OXALATE 10 MG TAB PO SCH (11:21)
[2017-12-11] MEDS: CETIRIZINE HCL 10 MG TAB PO SCH (11:21)
[2017-12-11] MEDS: ALPRAZolam 0.5 MG TAB PO PRN (18:08)
[2017-12-11] MEDS: MIRTAZAPINE 15 MG TAB PO SCH (20:49)
[2017-12-11] MEDS: ALPRAZolam 0.5 MG TAB PO SCH (20:49)
[2017-12-11] MEDS: GABAPENTIN 100 MG CAP PO SCH (20:49)
[2017-12-11] MEDS: SODIUM CHLORIDE 0.9% FLUSH 10 ML FLUSH IV FLUSH SCH (20:50)
[2017-12-12 00:58] VITALS: BP 113/56; PULSE 72; RESP 16; TEMP 97.6; O2SAT 95
[2017-12-12 03:09] VITALS: BP 113/53; PULSE 65; RESP 16; TEMP 97.7; O2SAT 96
[2017-12-12] MEDS: LEVOTHYROXINE SODIUM 88 MCG TAB PO SCH (06:36)
[2017-12-12 07:38] VITALS: BP 130/60; PULSE 119; RESP 24; TEMP 97.9; O2SAT 99
[2017-12-12] MEDS: RESP: ALBUTEROL 2.5 MG/IPRATROPIUM 0.5 MG NEB (SCH) NEB (07:47)
[2017-12-12 07:48] VITALS: O2SAT 96
[2017-12-12 07:52] LABS: CALCIUM 7.9 MG/DL (8.5-10.1); CREATININE 0.89 MG/DL (0.50-1.00)
[2017-12-12 08:03] LABS: INTERNATIONAL NORMALIZED RATIO 2.3 RATIO; PROTHROMBIN TIME - PATIENT 23.6 SEC (9.8-11.6)
[2017-12-12] MEDS: SODIUM CHLORIDE 0.9% FLUSH 10 ML FLUSH IV FLUSH SCH (09:28)
[2017-12-12] MEDS: FUROSEMIDE 40 MG TAB PO SCH (09:28)
[2017-12-12] MEDS: DIGOXIN 0.125 MG TAB PO SCH (09:28)
[2017-12-12] MEDS: CETIRIZINE HCL 10 MG TAB PO SCH (09:29)
[2017-12-12] MEDS: ESCITALOPRAM OXALATE 10 MG TAB PO SCH (09:29)
[2017-12-12] MEDS: SUCRALFATE 1 GM TAB PO SCH (09:29)
--- NOTE | 2017-12-12 12:57 | HHI.FPPN ---
Subjective Remarks Patient was about to be wheeled out for transportation to her [facility]. She stated that she slept well and had no issues this morning. She denies shortness of breath, chest pain, fever, chills. She is excited to go home today. (Abi Cho MD R2) Objective Vitals Vital Signs Date Time Temp Pulse Resp B/P (MAP) Pulse Ox O2 Delivery O2 Flow Rate FiO2 12/12/17 07:48 96 Nasal Cannula 3.00 12/12/17 07:38 97.9 119 24 130/60 (83) 99 12/12/17 03:09 97.7 65 16 113/53 (73) 96 12/12/17 00:58 97.6 72 16 113/56 (75) 95 12/11/17 21:00 97.9 88 18 132/58 (82) 98 12/11/17 19:18 95 Nasal Cannula 3.00 12/11/17 16:31 98.6 84 18 129/62 (84) 95 I/O 12/11/17 12/11/17 12/11/17 12/12/17 12/12/17 12/12/17 07:00 15:00 23:00 07:00 15:00 23:00 Intake Total 120 ml Output Total 300 ml Balance -180 ml Intake Oral 120 ml Output Urine Total 300 ml # Voids 1 (Abi Cho MD R2) Result Diagram: 12/11/17 0609 12/12/17 0729 Objective Remarks GENERAL: Pleasant, thin, elderly female, in no acute distress NECK: Trachea midline. No JVD or lymphadenopathy. Supple, nontender, no meningeal signs. CARDIOVASCULAR:irregular rate and rhythm RESPIRATORY: Good air movement. No crackles heard. Clear to auscultation bilaterally. Currently on 3 L oxygen satting at 96% GASTROINTESTINAL: Abdomen soft, non-tender, nondistended. No hepato-splenomegaly , or palpable masses. No guarding. MUSCULOSKELETAL: No calf tenderness. NEUROLOGICAL: Awake and alert. Oriented 3. Normal speech. (Abi Cho MD R2) A/P Assessment and Plan 87-year-old female resident at [facility] with history of A. fib with pacemaker , dementia, anxiety, and depression presents to the ED for shortness of breath found to have an acute CHF exacerbation Patient will continue her home medications at her [facility] with Lasix increased to 40 mg p.o. daily. She will also continue on potassium chloride 20 Meq. daily. Patient will need PT at home She would require oxygen at her [facility] which has already been delivered Check [facility] in 1 week to monitor for potassium and other electrolytes Repeat PT/INR today Follow-up with PCP in 1 week Discharged to [facility] Romi Marshall today (Abi Cho MD R2) Attending Attestation Patient examined and case discussed with resident physicians I have read the above note and agree with the assessment/plan as discussed with me I was involved in all medical decision making for this patient Kendell Lomeli MD (Kendell Lomeli MD) Problem List: (1) Acute exacerbation of congestive heart failure ICD Codes: I50.9 - Heart failure, unspecified Status: Acute (2) Hypoxia ICD Codes: R09.02 - Hypoxemia Status: Acute Plan: (3) Diarrhea ICD Codes: R19.7 - Diarrhea, unspecified Status: Acute (4) A-fib ICD Codes: I48.91 - Unspecified atrial fibrillation (5) Hypokalemia ICD Codes: E87.6 - Hypokalemia Status: Acute Plan: (6) Anxiety ICD Codes: F41.9 - Anxiety disorder, unspecified Status: Chronic (7) Depression ICD Codes: F32.9 - Major depressive disorder, single episode, unspecified Status: Chronic (8) Dementia ICD Codes: F03.90 - Unspecified dementia without behavioral disturbance Status: Chronic (9) Hypothyroid ICD Codes: E03.9 - Hypothyroidism, unspecified Status: Chronic (10) Nutrition, metabolism, and development symptoms ICD Codes: R63.8 - Other symptoms and signs concerning food and fluid intake Status: Acute (Abi Cho MD R2) Problem Qualifiers (1) Acute exacerbation of congestive heart failure: Qualified Codes: I50.9 - Heart failure, unspecified (2) Diarrhea: Qualified Codes: R19.7 - Diarrhea, unspecified (3) A-fib: Qualified Codes: I48.2 - Chronic atrial fibrillation Abi Cho MD R2 December 12, 2017 12:57 Kendell Lomeli MD December 12, 2017 16:41
== END 2017-12-12 10:44 | DRG 293 ==
LOC: NEPC 13:11 → INTOOBSV 15:44 → UNDOADMOB 15:44 → NEDA 15:44 → NEPGCP 17:44 → OBSVTOIN 12-09 10:54
PROVIDERS: ADMIT Family Medicine; ATTEND Family Medicine
DX: I50.23 Acute on chronic systolic (congestive) heart failure (principal); F03.90 Unspecified dementia, unspecified severity, without behavioral disturbance, psychotic disturbance, mood disturbance, and anxiety; I48.2 Chronic atrial fibrillation; I08.1 Rheumatic disorders of both mitral and tricuspid valves; J44.9 Chronic obstructive pulmonary disease, unspecified; F32.9 Major depressive disorder, single episode, unspecified; E87.6 Hypokalemia; F41.9 Anxiety disorder, unspecified; E03.9 Hypothyroidism, unspecified; R19.7 Diarrhea, unspecified; H35.30 Unspecified macular degeneration; M19.90 Unspecified osteoarthritis, unspecified site; R09.02 Hypoxemia; Z66 Do not resuscitate; Z79.01 Long term (current) use of anticoagulants; Z90.49 Acquired absence of other specified parts of digestive tract; Z95.0 Presence of cardiac pacemaker; Z90.710 Acquired absence of both cervix and uterus; Z87.891 Personal history of nicotine dependence; Z91.018 Allergy to other foods
CPT/HCPCS: 71045; 80048; 80053; 80162; 81001; 82550; 83735; 83880; 84132; 84484; 85025; 85027; 85610; 85730; 93005; 93306; 94640; 94664; 96374; 96375; J1940; J2930; J7512